=== PATIENT | male | born 1955 | race Caucasian/White ===

== ENCOUNTER → 2016-11-25 | Outpatient (CLI) | payer BC ==
[~2016-11-25] MED LIST: ALBUAER2 INH; ASPEC81 PO; BRVIN INH; CITA40TA4 PO; GUAI1TAB55 PO; IPRASOL4 INH; LISI10TA PO; LVQ750 PO; OXGN; PRD50 PO; SYMIN INH; THEO400T PO; TIOTCAP INH
--- NOTE | 2016-11-25 13:50 | DIAGNOSTIC IMAGING REPORT ---
TWO VIEW CHEST CLINICAL HISTORY: Dyspnea. COPD. FINDINGS: PA and lateral chest radiographs are compared to study dated 07/21/2016 and correlated with chest CT dated 09/04/2016. The PA view is degraded by patient rotation. The heart is enlarged and there is atherosclerotic calcification of the thoracic aorta. The pulmonary vasculature is noncongested. Severe emphysema and chronic interstitial thickening are again seen. Patchy airspace consolidation in the right middle lobe has a most completely resolved. Again seen is a 12 mm right upper lobe irregular pulmonary nodule. There is no pleural effusion or pneumothorax. The skeletal structures are osteopenic. The bony thorax appears intact. Fusion hardware seen in the lower cervical spine. Degenerative changes seen throughout the thoracic spine. IMPRESSION: 1. Dense airspace consolidation in the right middle lobe has almost completely resolved from 07/21/2016. Minimal residual opacities/scarring remain. 2. Unchanged appearance of a pathologically indeterminant 12 mm irregular nodule in the right upper lobe as compared to recent prior studies. Neoplasm is not excluded. 3. Cardiomegaly and severe emphysema. Electronically signed by: Julius Wynne M.D. 11/25/2016 1:48 PM Dictated Date/Time: 11/25/2016 1:36 PM
== END | disposition home or self-care (01) ==
LOC: C.RAD 12:54
PROVIDERS: ATTEND Family Medicine
DX: R06.02 Shortness of breath (principal); J43.9 Emphysema, unspecified

== ENCOUNTER → 2016-12-29 | Outpatient (CLI) | payer BC ==
--- NOTE | 2016-12-29 12:04 | DIAGNOSTIC IMAGING REPORT ---
CHEST CT WITHOUT CONTRAST CT DOSE: 282.78 mGycm HISTORY: Lung nodule R91.1 Lung nodule TECHNIQUE: Multiaxial CT images of the chest were performed without contrast. COMPARISON: 08/27/2016 FINDINGS: Improved infiltrative change right base with minimal residual. Nodular density right upper lung moderately diminished in size and/or volume now the current maximum dimension of 1.0 x 0.5 cm. Emphysematous change is stable. No new or interval findings. No significant additional pulmonary nodularity. IMPRESSION: Some improved exam with a nodular density of the right upper lung mildly diminished in maximum dimension. 2. Improved infiltrative change right base with minimal residual parenchymal scarring. 3. Baseline emphysematous change. Electronically signed by: Jaime Felix M.D. 12/29/2016 12:02 PM Dictated Date/Time: 12/29/2016 11:58 AM
== END | disposition home or self-care (01) ==
LOC: C.CTS 11:33
PROVIDERS: ATTEND Internal Medicine Pulmonary Disease
DX: R91.1 Solitary pulmonary nodule (principal)

== ENCOUNTER → 2017-09-03 | Outpatient (CLI) | payer BC ==
--- NOTE | 2017-09-03 14:44 | DIAGNOSTIC IMAGING REPORT ---
CHEST 2 VIEWS ROUTINE CLINICAL HISTORY: Exacerbation of COPD. Left-sided rib pain. COMPARISON STUDY: 11/25/2016 FINDINGS: There is radiographic evidence of severe emphysema. The heart is normal in size. There is no focal pulmonary consolidation. There is no failure. There are no pleural effusions. Postsurgical changes are present within the cervical spine.[ No pneumothorax is visualized. No left-sided rib fractures are delineated. IMPRESSION: Severe emphysema. No acute findings. Electronically signed by: Mihcael Villasenor M.D. 09/03/2017 2:43 PM Dictated Date/Time: 09/03/2017 2:42 PM
== END | disposition home or self-care (01) ==
LOC: C.RAD 13:58
PROVIDERS: ATTEND Nurse Practitioner Family
DX: J44.1 Chronic obstructive pulmonary disease with (acute) exacerbation (principal); R07.81 Pleurodynia

== ENCOUNTER → 2018-01-05 | Outpatient (CLI) | payer BC ==
--- NOTE | 2018-01-05 11:24 | DIAGNOSTIC IMAGING REPORT ---
(CHEST) THORAX WITHOUT CT DOSE: 398.78 mGycm CLINICAL HISTORY: 62 years-old Male with LUNG NODULE. Follow-up study in a patient with pulmonary nodule TECHNIQUE: Multiaxial CT images of the chest were performed without contrast. A dose lowering technique was utilized adhering to the principles of ALARA. COMPARISON: Chest CT 12/29/2016, 09/04/2016 and 04/11/2015 FINDINGS: Homogeneous thyroid. No pathologic adenopathy of the chest identified. Heart is normal in size without pericardial effusion. Coronary arterial disease. Moderate aortic atherosclerosis without aneurysm. No pneumothorax, pleural effusion or overt pulmonary edema. No lobar airspace consolidations are identified. Severe bullous emphysematous disease with an upper lung zone prominent distribution is again seen. Areas of chronic reticular scarring are again noted bilaterally. 8 x 8 mm nodule is mildly lobulated and spiculated margins is again noted within the right upper lobe on image 123 series 4. Adjacent linear density measuring 1.8 cm in length on image 124 suggests area of adjacent scarring. This nodule appears to be stable in size from comparison study 12/29/2016. Pleural-based 6 mm nodule of the superior segment left lower lobe image 164 series 4 appears unchanged. No new or enlarging pulmonary nodules are identified. Linear subsegmental opacities of the right middle lobe are unchanged suggesting areas of scarring. The central airways are patent. Upper abdominal structures are unremarkable. Soft tissues are within normal limits. Bones appear intact. No suspicious lytic or blastic bony lesions. Schmorl's node seen involving the superior endplate of what appears to be L2, unchanged. IMPRESSION: 1. Unchanged 8 x 8 mm pulmonary nodule with mildly lobulated and spiculated margins is again seen within the right upper lobe which is unchanged in size and appearance from most recent comparison study 12/29/2016. 2. Severe bullous emphysema. 3. No adenopathy or lobar airspace consolidation. Electronically signed by: Mikel Mcpherson M.D. 01/05/2018 11:22 AM Dictated Date/Time: 01/05/2018 11:11 AM
== END | disposition home or self-care (01) ==
LOC: C.CTS 10:54
PROVIDERS: ATTEND Internal Medicine Pulmonary Disease
DX: R91.1 Solitary pulmonary nodule (principal); J43.9 Emphysema, unspecified

== ENCOUNTER 2018-03-09 19:26 | Inpatient (IN) | payer BC, OTHER ==
[~2018-03-09] VITALS: Ht 167.6 cm; Wt 68.5 kg
[~2018-03-09 19:26] MED LIST changes: -ASPEC81 PO; +ASPI-320 PO
[2018-03-09] MEDS ORDERED: OXGN (19:33)
[2018-03-09] MEDS ORDERED: METHYLPREDNISOLONE 125 MG VIAL IV STA (19:37)
[2018-03-09] MEDS ORDERED: ALBUT/IPRATROP 3MG/0.5MG NEB 3 ML VIAL INH ONE (19:45)
[2018-03-09 19:55] LABS: BASO % 0.4 %; BASO ABS # 0.04 K/uL (0-0.2); EOS % 4.7 %; EOS ABS # 0.43 K/uL (0-0.5); HEMATOCRIT 41.2 % (42-52); HEMOGLOBIN 13.4 g/dL (14.0-18.0); IG# 0.06 K/uL (0.00-0.02); LYMPH % 14.7 %; LYMPH ABS # 1.34 K/uL (1.2-3.4); MEAN CELL VOLUME 89.4 fL (80-100); MEAN CORPUSCULAR HEMOGLOBIN 29.1 pg (25-34); MEAN CORPUSCULAR HGB CONC 32.5 g/dl (32-36); MEAN PLATELET VOLUME 9.5 fL (7.4-10.4); MONO ABS # 1.27 K/uL (0.11-0.59); NEUT % 65.5 %; NEUT ABS # 5.96 K/uL (1.4-6.5); PLATELET COUNT 314 K/uL (130-400); RED CELL DISTRIBUTION WIDTH CV 14.5 % (11.5-14.5); RED CELL DISTRIBUTION WIDTH SD 47.1 fL (36.4-46.3)
--- NOTE | 2018-03-09 19:56 | EMERGENCY ROOM VISIT NOTE ---
History Report prepared by Evans: Chris Fischer Under the Supervision of: Dr. Red Brennan M.D. First contact with patient: 19:28 Chief Complaint: CHEST PAIN Stated Complaint: CHEST PAIN History of Present Illness The patient is a 62 year old male who presents to the Emergency Room with complaints of constant chest pain starting around 0900 this morning. The patient states that six days ago he got a sudden sharp chest pain and left shoulder pain six days ago, and this resolved, though he has been having on and off chest pain since then and constant shoulder pain. The patient states that the pain is currently a dull pain, and it was relieved with nitro, and it is worse with exertion. He notes that the pain came on this morning after walking out of the bathroom, and he notes that the pain was still there while he was resting. The patient reports that he has never had pain like this before. He has a history of COPD, and he is usually on 3L of oxygen, and he takes a baby aspirin every morning. The patient notes that he has increased shortness of breath for the last couple of days, and this morning he saw his PCP for the pain. He notes that he was recently on antibiotics for a chest cold, and he just finished them. The patient denies any history of VA, and he states that he has had a stress test in the past. He is a previous smoker. Source of History: patient Onset: 0900 this morning Position: chest Quality: dull Timing: constant Modifying Factors (Worsening): exertion Modifying Factors (Relieving): other (nitro ) Associated Symptoms: + SOB Note: Associated symptoms: Shoulder pain Review of Systems See HPI for pertinent positives and negatives. A total of ten systems were reviewed and were otherwise negative. Past Medical & Surgical Medical Problems: (1) Chest discomfort (2) Chronic Respiratory Failure (3) COPD (chronic obstructive pulmonary disease) (4) COPD with acute exacerbation (5) COPD with acute lower respiratory infection (6) Hypertension Nos (7) Septic shock Family History Patient reports no known family medical history. Social History Smoking Status: Current Every Day Smoker Alcohol Use: none Drug Use: none Marital Status: Housing Status: lives with family Occupation Status: employed Current/Historical Medications Scheduled Aspirin (Aspirin Ec), 81 MG PO DAILY Budesonide/Formoterol Fumarate (Symbicort 160-4.5 Mcg/Act), 2 PUFFS INH BID Citalopram Hydrobromide (Celexa), 20 MG PO DAILY Guaifenesin Ext Rel (Mucinex Ext Rel), 1,200 MG PO DAILY Home O2 Therapy (Oxygen), 3 LITERS NA CONTINOUS Lisinopril (Prinivil), 10 MG PO DAILY Theophylline (Theophylline ER), 400 MG PO Q12 Scheduled PRN Albuterol Hfa (Ventolin Hfa), 2 PUFFS INH Q4 PRN for SOB/Wheezing Ipratropium [place] (Nasal) (Ipratropium [place]), 2 SPRAYS YVAN TID PRN for SOB/ Wheezing Ipratropium-Albuterol (Duoneb), 1 TREATMENT INH Q4H PRN for Shortness of Breath Allergies Coded Allergies: Pirbuterol (Verified Allergy, Severe, "CHEST TIGHTENS", 06/03/16) Physical Exam Vital Signs Date Time Temp Pulse Resp B/P (MAP) Pulse Ox O2 Delivery O2 Flow Rate FiO2 03/09/18 21:01 88 23 119/64 97 Nebulizer 03/09/18 20:31 86 24 125/74 98 Nebulizer 03/09/18 20:15 84 03/09/18 20:09 84 20 95 Nasal Cannula 3.0 03/09/18 19:51 94 Nasal Cannula 3.0 03/09/18 19:34 37.0 92 16 155/76 95 Nasal Cannula 3.0 03/09/18 19:34 Room Air 03/09/18 19:34 95 Nasal Cannula 3.0 Physical Exam GENERAL: Awake, alert, fatigued-appearing, in no distress HENT: Normocephalic, atraumatic. Dry mucous membranes otherwise oropharynx unremarkable. EYES: Normal conjunctiva. Sclera non-icteric. NECK: Supple. No nuchal rigidity. FROM. No JVD. RESPIRATORY: Scattered intermittent wheezes CARDIAC: Regular rate, normal rhythm. Extremities warm and well perfused. Pulses equal. ABDOMEN: Soft, non-distended. No tenderness to palpation. No rebound or guarding. No masses. RECTAL: Deferred. MUSCULOSKELETAL: Chest examination reveals no tenderness. The back is symmetrical on inspection without obvious abnormality. There is no CVA tenderness to palpation. No joint edema. LOWER EXTREMITIES: Calves are equal size bilaterally and non-tender. No edema. No discoloration. NEURO: Normal sensorium. No sensory or motor deficits noted. SKIN: No rash or jaundice noted. Medical Decision & Procedures ER Provider Diagnostic Interpretation: Radiology results as stated below per my review and radiologist interpretation: SINGLE VIEW CHEST CLINICAL HISTORY: Atypical chest pain. FINDINGS: 2 AP, portable, upright chest radiographs are compared to study dated 09/03/2017 and correlated with chest CT dated 01/05/2018. The examination is degraded by portable technique and patient rotation. The heart is enlarged and there is atherosclerotic calcification of the thoracic aorta. Advanced emphysema and chronic interstitial thickening are similar to previous. Foci of cortical scarring are present bilaterally. A 12 mm thick age-related nodule is again seen in the right upper lobe. No pneumothorax is seen. The skeletal structures are osteopenic. The bony thorax is grossly intact. Fusion hardware is noted in the lower cervical spine. IMPRESSION: 1. Cardiomegaly and severe emphysema. 2. No airspace consolidation or pleural effusion is identified. 3. A 12 mm spiculated nodule is again seen in the right upper lobe. This was better characterized on the 01/05/2018 CT examination and neoplasm is not excluded. Electronically signed by: Julius Wynne M.D. 03/09/2018 8:22 PM Dictated Date/Time: 03/09/2018 8:18 PM Laboratory Results 03/09/18 19:25 Red Blood Count 4.61, Mean Corpuscular Volume 89.4, Mean Corpuscular Hemoglobin 29.1, Mean Corpuscular Hemoglobin Concent 32.5, Mean Platelet Volume 9.5, Neutrophils (%) (Auto) 65.5, Lymphocytes (%) (Auto) 14.7, Monocytes (%) (Auto) 14.0, Eosinophils (%) (Auto) 4.7, Basophils (%) (Auto) 0.4, Neutrophils # (Auto ) 5.96, Lymphocytes # (Auto) 1.34, Monocytes # (Auto) 1.27, Eosinophils # (Auto ) 0.43, Basophils # (Auto) 0.04 03/09/18 19:25 Test 03/09/18 19:25 03/09/18 20:28 White Blood Count 9.10 K/uL (4.8-10.8) Red Blood Count 4.61 M/uL (4.7-6.1) Hemoglobin 13.4 g/dL (14.0-18.0) Hematocrit 41.2 % (42-52) Mean Corpuscular Volume 89.4 fL (80-100) Mean Corpuscular Hemoglobin 29.1 pg (25-34) Mean Corpuscular Hemoglobin Concent 32.5 g/dl (32-36) Platelet Count 314 K/uL (130-400) Mean Platelet Volume 9.5 fL (7.4-10.4) Neutrophils (%) (Auto) 65.5 % Lymphocytes (%) (Auto) 14.7 % Monocytes (%) (Auto) 14.0 % Eosinophils (%) (Auto) 4.7 % Basophils (%) (Auto) 0.4 % Neutrophils # (Auto) 5.96 K/uL (1.4-6.5) Lymphocytes # (Auto) 1.34 K/uL (1.2-3.4) Monocytes # (Auto) 1.27 K/uL (0.11-0.59) Eosinophils # (Auto) 0.43 K/uL (0-0.5) Basophils # (Auto) 0.04 K/uL (0-0.2) RDW Standard Deviation 47.1 fL (36.4-46.3) RDW Coefficient of Variation 14.5 % (11.5-14.5) Immature Granulocyte % (Auto) 0.7 % Immature Granulocyte # (Auto) 0.06 K/uL (0.00-0.02) Anion Gap 4.0 mmol/L (3-11) Est Creatinine Clear Calc Drug Dose 57.5 ml/min Estimated GFR () 75.9 Estimated GFR (Non- 65.5 BUN/Creatinine Ratio 19.6 (10-20) Calcium Level 8.9 mg/dl (8.5-10.1) Magnesium Level 2.2 mg/dl (1.8-2.4) Total Bilirubin 0.3 mg/dl (0.2-1) Direct Bilirubin < 0.1 mg/dl (0-0.2) Aspartate Amino Transf (AST/SGOT) 15 U/L (15-37) Alanine Aminotransferase (ALT/SGPT) 18 U/L (12-78) Alkaline Phosphatase 109 U/L (45-117) Troponin I < 0.015 ng/ml (0-0.045) Pro-B-Type Natriuretic Peptide 56 pg/ml (0-900) Total Protein 6.8 gm/dl (6.4-8.2) Albumin 3.2 gm/dl (3.4-5.0) Lipase 132 U/L (73-393) Venous Blood pH 7.40 (7.36-7.41) Venous Blood Partial Pressure CO2 52 mmHg (38.0-50.0) Venous Blood Partial Pressure O2 29 mmHg Venous Blood HCO3 31 mmol/L Venous Blood Oxygen Saturation < 60.0 % Venous Blood Base Excess 5.3 mEq/L Laboratory results reviewed by me Medications Administered Medications (Trade) Dose Ordered Sig/Belinda Route Start Time Stop Time Status Last Admin Dose Admin Methylprednisolone Sodium Succinate (Solu-Medrol IV) 125 mg NOW STAT IV 03/09/18 19:37 03/09/18 19:45 DC 03/09/18 20:05 125 MG Albuterol/ Ipratropium (Duoneb) 12 ml ONE ONCE INH 03/09/18 19:45 03/09/18 19:46 DC 03/09/18 20:07 12 ML ECG Per My Interpretation Indication: chest pain Rate (beats per minute): 95 Rhythm: normal sinus Findings: no acute ischemic change, no ectopy, other (normal axis) ED Course 1927: The patient was evaluated in room C10. A complete history and physical exam was performed. 2024: Upon reexamination, the patient was doing well. I discussed the test results and treatment plan with him. The patient will be evaluated for further management. 2058: I discussed the patient with Dr. Galeano - [facility] [place] - he will evaluate the patient for further treatment. Medical Decision I reviewed the patient's past medical history, medications, and the nursing notes as described above. Differential diagnosis: Etiologies such as cardiac ischemia, aortic dissection, pulmonary embolism, pneumonia, pneumothorax, musculoskeletal, infections, pericarditis, myocarditis , esophageal rupture, gastrointestinal, as well as others were entertained. The patient is a 62-year-old gentleman with a past medical history of COPD on 3 L home O2 who presents emergency department with worsening chest pain throughout today that resolved by nitroglycerin and aspirin by EMS prior to arrival in the setting of having worsening intermittent chest pain for the past week that is provoked by exertion per hpi. On arrival the patient is fatigued appearing but no acute distress, afebrile stable vital signs. The patient has scant intermittent wheezes. Patient was given steroids and DuoNeb's. Of note, EMS EKG with question ST elevations inferiorly however review of these findings demonstrate concave up morphology with question minimal elevation unlikely to be STEMI particularly given no reciprocal changes. EKG on arrival here does not demonstrate any ST elevations. Moreover, otherwise similar to patient's prior EKGs with similar morphology and flattening in aVL. Initial troponin negative in the setting of having greater than 6 hours of symptoms since this morning. While the patient symptoms do not appear consistent with ACS, pattern of symptoms could be consistent with unstable angina. Heart score 5, moderate risk, thus reasonable to admit the patient for further ACS rule out. Medication Reconcilliation Current Medication List: was personally reviewed by me Blood Pressure Screening Patient's blood pressure: Elevated blood pressure monitored by the hospitalist Consults Time Called: 2028 Consulting Physician: Dr. Waleska ANDRADE Hospitalist resident Returned Call: [phone] I discussed the patient with Dr. Waleska ANDRADE Hospitalist resident - he will evaluate the patient for further treatment. Impression Primary Impression: Substernal chest pain Additional Impression: COPD with acute exacerbation Scribe Attestation The scribe's documentation has been prepared under my direction and personally reviewed by me in its entirety. I confirm that the note above accurately reflects all work, treatment, procedures, and medical decision making performed by me. Departure Information Dispostion Being Evaluated By Hospitalist Referrals Shazia Marquez (PCP) Patient Instructions My [facility] Problem Qualifiers
[2018-03-09 20:04] LABS: ALBUMIN 3.2 gm/dl (3.4-5.0); ALT/SGPT 18 U/L (12-78); AST/SGOT 15 U/L (15-37); BLOOD UREA NITROGEN 23 mg/dl (7-18); CALCIUM 8.9 mg/dl (8.5-10.1); CARBON DIOXIDE 30 mmol/L (21-32); CREATININE 1.17 mg/dl (0.60-1.40); GLUCOSE 82 mg/dl (70-99); LIPASE 132 U/L (73-393); POTASSIUM 4.4 mmol/L (3.5-5.1); SODIUM 138 mmol/L (136-145)
[2018-03-09] MEDS ORDERED: VNTHFA/IN INH (20:07)
[2018-03-09] MEDS ORDERED: CITA20TA9 PO (20:07)
[2018-03-09] MEDS ORDERED: ASPI81TA28 PO (20:07)
[2018-03-09] MEDS ORDERED: IPRA0.03 NAE (20:07)
[2018-03-09 20:09] VITALS: PULSE 84; O2SAT 95
[2018-03-09 20:10] LABS: ALKALINE PHOSPHATASE 109 U/L (45-117); TOTAL PROTEIN 6.8 gm/dl (6.4-8.2)
--- NOTE | 2018-03-09 20:23 | DIAGNOSTIC IMAGING REPORT ---
SINGLE VIEW CHEST CLINICAL HISTORY: Atypical chest pain. FINDINGS: 2 AP, portable, upright chest radiographs are compared to study dated 09/03/2017 and correlated with chest CT dated 01/05/2018. The examination is degraded by portable technique and patient rotation. The heart is enlarged and there is atherosclerotic calcification of the thoracic aorta. Advanced emphysema and chronic interstitial thickening are similar to previous. Foci of cortical scarring are present bilaterally. A 12 mm thick age-related nodule is again seen in the right upper lobe. No pneumothorax is seen. The skeletal structures are osteopenic. The bony thorax is grossly intact. Fusion hardware is noted in the lower cervical spine. IMPRESSION: 1. Cardiomegaly and severe emphysema. 2. No airspace consolidation or pleural effusion is identified. 3. A 12 mm spiculated nodule is again seen in the right upper lobe. This was better characterized on the 01/05/2018 CT examination and neoplasm is not excluded. Electronically signed by: Julius Wynne M.D. 03/09/2018 8:22 PM Dictated Date/Time: 03/09/2018 8:18 PM
--- NOTE | 2018-03-09 21:24 | History and Physical ---
History & Physical Date & Time of Service: March 09, 2018 at 21:24 Chief Complaint: Chest Pain Primary Care Physician: Shazia Marquez History of Present Illness Source: patient, hospital records 62 yo M former smoker with pmhx of HTN, Severe COPD on 3L home O2, requiring multiple hospitalizations for exacerbation, presenting with 1 wk history of worsening SOB. He also reports episode of sharp chest pain while he was hanging a picture 1 week ago. Chest pain was sharp left sided, lasted approximately an hour with radiation to the neck. Chest pain never fully resolved and reports residual chest pain since. He went to PCP today and was given ASA, nitro and told to go to ED fro further evaluation for ACS. He did take Asprin. NO previous similar Chest pain. No fevers, chills N/V, diaphoresis. No history of CAD. No palpitation, No PND, No orthopnea. Past Medical/Surgical History Medical Problems: (1) Acute respiratory failure (2) Basal pneumonia of both lungs (3) Chronic obstructive pulmonary disease (4) Chronic Respiratory Failure (5) COPD (chronic obstructive pulmonary disease) (6) COPD with acute exacerbation (7) COPD with acute lower respiratory infection (8) Hypertension Nos (9) Hypoxia (10) Pneumonia (11) Septic shock PastMedHx: HTN Severe COPD anxiety SurgHx: Cspine Sx (2009) Family History Patient reports no known family medical history. DM COPD Social History Smoking Status: Former Smoker (quit 3 yrs ago) Alcohol Use: none Drug Use: none Marital Status: Housing status: lives with family Occupational Status: employed, retired Immunizations History of Influenza Vaccine: No History of Tetanus Vaccine?: Unknown History of Pneumococcal: No History of Hepatitis B Vaccine: No Allergies Coded Allergies: Pirbuterol (Verified Allergy, Severe, "CHEST TIGHTENS", 06/03/16) Home Medications Scheduled Aspirin (Aspirin Ec), 81 MG PO DAILY Azithromycin (Azithromycin), 250 MG PO QAM Budesonide/Formoterol Fumarate (Symbicort 160-4.5 Mcg/Act), 2 PUFFS INH BID Citalopram Hydrobromide (Celexa), 20 MG PO DAILY Guaifenesin Ext Rel (Mucinex Ext Rel), 1,200 MG PO DAILY Home O2 Therapy (Oxygen), 3 LITERS NA CONTINOUS Lisinopril (Prinivil), 10 MG PO DAILY Prednisone Tab (Prednisone), 10 MG PO DAILY Theophylline (Theophylline ER), 400 MG PO Q12 Scheduled PRN Albuterol Hfa (Ventolin Hfa), 2 PUFFS INH Q4 PRN for SOB/Wheezing Ipratropium [place] (Nasal) (Ipratropium [place]), 2 SPRAYS YVAN TID PRN for SOB/ Wheezing Ipratropium-Albuterol (Duoneb), 1 TREATMENT INH Q4H PRN for Shortness of Breath Review of Systems Constitutional: No fever, No chills, No weakness Respiratory: + cough, + shortness of breath Cardiovascular: + chest pain, No edema, No palpitations Abdomen: No pain, No nausea, No vomiting, No diarrhea Musculoskeletal: No swelling, No calf pain Genitourinary - Male: No hematuria, No dysuria, No urinary frequency, No urinary urgency Integumentary: No itch Physical Exam Vital Signs Date Time Temp Pulse Resp B/P (MAP) Pulse Ox O2 Delivery O2 Flow Rate FiO2 03/09/18 20:31 86 24 125/74 98 Nebulizer 03/09/18 20:15 84 03/09/18 20:09 84 20 95 Nasal Cannula 3.0 03/09/18 19:51 94 Nasal Cannula 3.0 03/09/18 19:34 37.0 92 16 155/76 95 Nasal Cannula 3.0 03/09/18 19:34 Room Air 03/09/18 19:34 95 Nasal Cannula 3.0 GENERAL: alert, well appearing, well nourished, no distress, non-toxic EYE EXAM: normal conjunctiva, PERRL and EOM's grossly intact OROPHARYNX: no exudate, no erythema, lips, buccal mucosa, and tongue normal and mucous membranes are moist NECK: supple, no nuchal rigidity, no adenopathy, non-tender LUNGS: mild scattered wheeze. Normal chest wall mechanics HEART: no murmurs, S1 normal and S2 normal ABDOMEN: abdomen soft, non-tender, normo-active bowel sounds, no masses, no rebound or guarding. BACK: Back is symmetrical on inspection and there is no deformity SKIN: no rashes and no bruising UPPER EXTREMITIES: upper extremities are grossly normal. LOWER EXTREMITIES: No pitting edema. NEURO EXAM: Normal sensorium, cranial nerves II-XII grossly intact, normal speech, no gross weakness of arms, no gross weakness of legs. Diagnostics Laboratory Results Results Past 24 Hours Test 03/09/18 19:25 03/09/18 20:28 Range/Units White Blood Count 9.10 4.8-10.8 K/uL Red Blood Count 4.61 4.7-6.1 M/uL Hemoglobin 13.4 14.0-18.0 g/dL Hematocrit 41.2 42-52 % Mean Corpuscular Volume 89.4 80-100 fL Mean Corpuscular Hemoglobin 29.1 25-34 pg Mean Corpuscular Hemoglobin Concent 32.5 32-36 g/dl Platelet Count 314 130-400 K/uL Mean Platelet Volume 9.5 7.4-10.4 fL Neutrophils (%) (Auto) 65.5 % Lymphocytes (%) (Auto) 14.7 % Monocytes (%) (Auto) 14.0 % Eosinophils (%) (Auto) 4.7 % Basophils (%) (Auto) 0.4 % Neutrophils # (Auto) 5.96 1.4-6.5 K/uL Lymphocytes # (Auto) 1.34 1.2-3.4 K/uL Monocytes # (Auto) 1.27 0.11-0.59 K/uL Eosinophils # (Auto) 0.43 0-0.5 K/uL Basophils # (Auto) 0.04 0-0.2 K/uL RDW Standard Deviation 47.1 36.4-46.3 fL RDW Coefficient of Variation 14.5 11.5-14.5 % Immature Granulocyte % (Auto) 0.7 % Immature Granulocyte # (Auto) 0.06 0.00-0.02 K/uL Sodium Level 138 136-145 mmol/L Potassium Level 4.4 3.5-5.1 mmol/L Chloride Level 105 98-107 mmol/L Carbon Dioxide Level 30 21-32 mmol/L Anion Gap 4.0 3-11 mmol/L Blood Urea Nitrogen 23 7-18 mg/dl Creatinine 1.17 0.60-1.40 mg/dl Est Creatinine Clear Calc Drug Dose 57.5 ml/min Estimated GFR () 75.9 Estimated GFR (Non- 65.5 BUN/Creatinine Ratio 19.6 10-20 Random Glucose 82 70-99 mg/dl Calcium Level 8.9 8.5-10.1 mg/dl Magnesium Level 2.2 1.8-2.4 mg/dl Total Bilirubin 0.3 0.2-1 mg/dl Direct Bilirubin < 0.1 0-0.2 mg/dl Aspartate Amino Transf (AST/SGOT) 15 15-37 U/L Alanine Aminotransferase (ALT/SGPT) 18 12-78 U/L Alkaline Phosphatase 109 45-117 U/L Troponin I < 0.015 0-0.045 ng/ml Pro-B-Type Natriuretic Peptide 56 0-900 pg/ml Total Protein 6.8 6.4-8.2 gm/dl Albumin 3.2 3.4-5.0 gm/dl Lipase 132 73-393 U/L Venous Blood pH 7.40 7.36-7.41 Venous Blood Partial Pressure CO2 52 38.0-50.0 mmHg Venous Blood Partial Pressure O2 29 mmHg Venous Blood HCO3 31 mmol/L Venous Blood Oxygen Saturation < 60.0 % Venous Blood Base Excess 5.3 mEq/L Diagnostic Radiology SINGLE VIEW CHEST CLINICAL HISTORY: Atypical chest pain. FINDINGS: 2 AP, portable, upright chest radiographs are compared to study dated 09/03/2017 and correlated with chest CT dated 01/05/2018. The examination is degraded by portable technique and patient rotation. The heart is enlarged and there is atherosclerotic calcification of the thoracic aorta. Advanced emphysema and chronic interstitial thickening are similar to previous. Foci of cortical scarring are present bilaterally. A 12 mm thick age-related nodule is again seen in the right upper lobe. No pneumothorax is seen. The skeletal structures are osteopenic. The bony thorax is grossly intact. Fusion hardware is noted in the lower cervical spine. IMPRESSION: 1. Cardiomegaly and severe emphysema. 2. No airspace consolidation or pleural effusion is identified. 3. A 12 mm spiculated nodule is again seen in the right upper lobe. This was better characterized on the 01/05/2018 CT examination and neoplasm is not excluded. Normal EKG, No change from prior EKG Impression Assessment and Plan 62 yo M former smoker with pmhx of HTN, Severe COPD on 3L home O2 requiring multiple hospitalizations for exacerbation, presenting with 1 wk history of worsening SOB, Chest pain with normal EKG, Troponin, admitted fro COPD exacerbation Admit to to Tele COPD Exacerbation - SOB, wheezing Chest discomfort, maintaining saturation on 3L O2 - Duonebs, Continue oxygen at 3L , titrate up if needed - IV Solumedrol 40 q8H -Guaifenesin -Levaquin 750 daily -c/w home theophylline , Symbicort Chest pain - likely pulmonary in etiology related to COPD, however ACS considered given history - EKG , neg troponin not consistent with acute ischemic change - continue to monitor troponin. HTN - BP controlled - c/w Lisinopril Anxiety - c/w Citalopram DVT PPX: Lovenox Code status: Full Attending addendum: I have physically seen this patient, have supervised the medical residents activities, and agree with the H&P unless as otherwise noted. Assessment and Plan: COPD exacerbation/right upper lobe nodule-- Levofloxacin 500 mg IV every 24 hours Duonebs every 4 hours while awake and every 2 hours when necessary. Solu-Medrol 40 mg IV every 8 hours Guaifenesin extended release 600 mg by mouth twice a day. Continue theophylline, check level. Nasal cannula oxygen titrate to keep pulse ox greater than or equal to 92% Sputum Gram stain and culture Follow up with lung nodule program. Hypertension-- Continue lisinopril with hold parameters. Advanced Directives Existing Advance Directive: No Existing Living Will: No Existing Power of Chief Petroleum Engineer: No Resuscitation Status VTE Prophylaxis Will order VTE Prophylaxis: Yes Social Service Consult None Apply Resident Tracking Resident Involvement: Resident Care Provided Care Provided: Adult Hospital Medicine
[2018-03-09] MEDS ORDERED: ONDANSETRON INJ 2 MG/ML 2 ML VIAL IV PRN (21:45)
[2018-03-09] MEDS ORDERED: ALUMINUM/MAGNESIUM/SIMETH (MAALOX MAX) 30 ML UDC PO PRN (21:45)
[2018-03-09] MEDS ORDERED: PREMIXED IN D5W 150 ML IV SCH (21:45)
[2018-03-09] MEDS ORDERED: MAGNESIUM HYDROXIDE SUSP 30 ML UDC PO PRN (21:45)
[2018-03-09] MEDS ORDERED: POLYETHYLENE (MIRALAX) 17 GM PACK PO PRN (21:45)
[2018-03-09] MEDS ORDERED: NITROGLYCERIN 0.4 MG SL PER TAB CHARGE SL PRN (21:45)
[2018-03-09] MEDS ORDERED: ACETAMINOPHEN 325 MG TAB PO PRN (21:45)
[2018-03-09 22:56] VITALS: BP 129/74; PULSE 98; TEMP 36.9; O2SAT 93; Ht 167.6 cm; Wt 68.5 kg
[2018-03-10] VITALS (8 sets, daily range): BP systolic 124–164; BP diastolic 74–82; PULSE 75–94; TEMP 36.4–36.6; O2SAT 90–98
[2018-03-10] MEDS ORDERED: LEVOFLOXACIN 750MG / D5W IV SCH
[2018-03-10] MEDS: GUAIFENESIN 200 MG TAB PO SCH ×5 (00:01→16:09)
[2018-03-10] MEDS: METHYLPREDNISOLONE IV 40 MG in SYRINGE 0 ML IV SCH ×2 (04:15→11:30)
[2018-03-10 06:36] LABS: BASO % 0.2 %; BASO ABS # 0.01 K/uL (0-0.2); EOS % 0.2 %; EOS ABS # 0.01 K/uL (0-0.5); HEMATOCRIT 38.5 % (42-52); HEMOGLOBIN 12.6 g/dL (14.0-18.0); IG# 0.02 K/uL (0.00-0.02); LYMPH % 12.3 %; LYMPH ABS # 0.67 K/uL (1.2-3.4); MEAN CELL VOLUME 88.9 fL (80-100); MEAN CORPUSCULAR HEMOGLOBIN 29.1 pg (25-34); MEAN CORPUSCULAR HGB CONC 32.7 g/dl (32-36); MEAN PLATELET VOLUME 9.6 fL (7.4-10.4); MONO % 0.5 %; MONO ABS # 0.03 K/uL (0.11-0.59); NEUT % 86.4 %; NEUT ABS # 4.72 K/uL (1.4-6.5); PLATELET COUNT 298 K/uL (130-400); RED CELL DISTRIBUTION WIDTH CV 14.1 % (11.5-14.5); RED CELL DISTRIBUTION WIDTH SD 46.5 fL (36.4-46.3); WHITE BLOOD COUNT 5.46 K/uL (4.8-10.8)
[2018-03-10] MEDS: ALBUT/IPRATROP 3MG/0.5MG NEB 3 ML VIAL INH SCH ×3 (07:01→15:20)
[2018-03-10 07:02] LABS: CALCIUM 8.5 mg/dl (8.5-10.1); CREATININE 1.1 mg/dl (0.60-1.40); POTASSIUM 4.9 mmol/L (3.5-5.1)
--- NOTE | 2018-03-10 08:05 | Family Medicine Progress Note ---
Progress Note Date of Service March 10, 2018. Resident Tracking Resident Involvement: Resident Care Provided Care Provided: Adult Hospital Medicine
[2018-03-10] MEDS ORDERED: ENOXAPARIN 40 MG/0.4 ML SYR SC SCH (09:00)
[2018-03-10] MEDS ORDERED: BUDESONIDE/FORMOTEROL FUMARATE 160/4.5 60 PUFFS/INHALER INH SCH (09:00)
[2018-03-10] MEDS ORDERED: THEOPHYLLINE 400 MG EXTENDED REL TAB PO SCH (09:00)
[2018-03-10] MEDS ORDERED: CITALOPRAM 20 MG TAB PO SCH (09:00)
[2018-03-10] MEDS ORDERED: ASPIRIN 81 MG ECTAB PO SCH (09:00)
[2018-03-10] MEDS ORDERED: LISINOPRIL 10 MG TAB PO SCH (09:00)
[2018-03-10] MEDS ORDERED: AZIT-57 PO (14:58)
[2018-03-10] MEDS ORDERED: PRED10TA PO (15:03)
--- NOTE | 2018-03-10 15:15 | Discharge Instructions ---
Discharge Instructions Date of Service March 10, 2018. Admission Reason for Admission: Chest Discomfort, Copd With Acute Exacerbation Discharge Discharge Diagnosis / Problem: COPD exacerbation Discharge Goals Goal(s): Decrease discomfort, Improve disease control, Diagnostic testing, Therapeutic intervention Activity Recommendations Activity Limitations: resume your previous activity . Instructions / Follow-Up Instructions / Follow-Up You were admitted to hospital with exacerbation of your COPD. You also had some chest discomfort. EKG and troponin levels were all normal, indicating NO evidence of a heart attack. With administration of steroids, your symptoms improved. On discharge, continue all your medications. You have also been prescribed 5 days of antibiotics (azithromycin) and a very slow taper of steroids in hopes of avoiding rebound exacerbation. Take prednisone 60mg (6 tablets) x 3days, 50mg (5 tablets) x 3 days, 40mg (4 tablets ) x 3 days, 30mg (3 tablets) x 3 days, 20mg (2 tablets) x 3 days, 10mg (1 tablet ) x 3 days, then stop. We recommend follow up with your PCP next week. Discussion of outpatient sleep study and/or echo referral is warranted to determine if you would benefit from CPAP/Bipap. Seek medical attention sooner if your symptoms worsen/recur. Current Hospital Diet Patient's current hospital diet: Regular Diet Discharge Diet Recommended Diet: Regular Diet Pending Studies Studies pending at discharge: no Medical Emergencies . Who to Call and When: Medical Emergencies: If at any time you feel your situation is an emergency, please call 911 immediately. . Non-Emergent Contact Non-Emergency issues call your: Primary Care Provider, Commissions Coordinator . . "Provider Documentation" section prepared by Loreto Santiago. . Resident Tracking Resident Involvement: Resident Care Provided Care Provided: Adult Hospital Medicine
--- NOTE | 2018-03-10 15:17 | Discharge Summary ---
Discharge Summary Date of Service March 10, 2018. Discharge Summary Admission Date: March 09, 2018 at 21:53 Discharge Date: March 10, 2018 Discharge Disposition: Home Principal Diagnosis: COPD exacerbation Immunizations: Have You Had Influenza Vaccine: No History of Tetanus Vaccine?: Unknown History of Pneumococcal: No History of Hepatitis B Vaccine: No Medication Reconciliation New Medications: Prednisone Tab (Prednisone) 10 Mg Tab 10 MG PO DAILY, #63 TAB 60mg x3days, 50mg x3days, 40mg x3days, 30mg x3days, 20mg x3days, 10mg x3days, then stop Azithromycin (Azithromycin) 250 Mg Tab 250 MG PO QAM, #5 TAB Continued Medications: Albuterol Hfa (Ventolin Hfa) 200 Puffs/55096 Mcg Aers 2 PUFFS INH Q4 PRN for SOB/Wheezing, #1 INHALER Aspirin (Aspirin Ec) 81 Mg Tab 81 MG PO DAILY Budesonide/Formoterol Fumarate (Symbicort 160-4.5 Mcg/Act) 60 Puffs/Inhaler Aero 2 PUFFS INH BID Citalopram Hydrobromide (Celexa) 20 Mg Tab 20 MG PO DAILY, TAB Guaifenesin Ext Rel (Mucinex Ext Rel) 600 Mg Tab 1200 MG PO DAILY, TAB Home O2 Therapy (Oxygen) Gas 3 LITERS NA CONTINOUS @ BEDTIME AND WITH EXERTION. Ipratropium [place] (Nasal) (Ipratropium [place]) 0.03 % Spr 2 SPRAYS YVAN TID PRN for SOB/Wheezing Ipratropium-Albuterol (Duoneb) 3 Ml Nebu 1 TREATMENT INH Q4H PRN for Shortness of Breath, INHA Lisinopril (Prinivil) 10 Mg Tab 10 MG PO DAILY, TAB Theophylline (Theophylline ER) 400 Mg Tabcr 400 MG PO Q12 Discharge Exam Patient comfortable, saturating well on baseline oxygen level. He denies fevers/ chills, headaches, CP, palpitations, abdominal pain, lower extremity swelling or rashes. He is tolerating diet without nausea or vomiting, and voiding and stooling appropriately. ROS is unremarkable except as noted above. Physical Exam: General Appearance: WD/WN, no apparent distress, + pertinent finding (NC in situ, 3L O2) Eyes: sclerae normal ENT: hearing grossly normal Neck: supple, no JVD Respiratory/Chest: normal breath sounds, no respiratory distress, no accessory muscle use Cardiovascular: regular rate, rhythm, no murmur Abdomen / GI: normal bowel sounds, non tender, soft Extremities: no calf tenderness, no pedal edema Neurologic/Psychiatric: alert, normal mood/affect, oriented x 3 Skin: normal color, warm/dry, no rash Hospital Course 62 yo M former smoker with pMHx of severe COPD on 3L O2 at baseline, HTN, presented with 1 week history of worsening SOB and chest pain, admitted fro COPD exacerbation COPD Exacerbation - Continuous O2 via NC 3L (baseline), maintain sats >88% - Continue home inhalers: albuterol, Symbicort, theophylline - Prescribed PO prednisone 60mg on discharge, with plans to taper by 10mg every 3 days to avoid refractory exacerbation - Azithromycin x 5 days for atypical coverage - Guaifenesin PRN cough - Follow up with PCP early next week. Given history of CPAP use in past, discussion re referral for outpatient sleep study (?ERNESTINA) and echo (?pulm HTN) warranted Chest pain - resolved. Likely pulmonary in etiology related to COPD. ACS unlikely as EKG shows no ischemic changes and serial troponin x 3 negative HTN - Stable. Continue lisinopril Anxiety - Continue Citalopram VTE ppx - Enoxaparin Code status: Full Resident Physician Supervision Note: I interviewed and examined the patient. Discussed with Dr. Santiago and agree with findings and plan as documented in the note. Any exceptions or clarifications are listed here: None Documented By: Sanket Bethea chest pain better breathing better feeling OK vitals noted nad breathing unlabored no pallor or icterus chest pain - due to COPD exacerbation - treat as above, but stable for discharge to home w outpt f/u stable for home Total Time Spent: Less than 30 minutes This includes examination of the patient, discharge planning, medication reconciliation, and communication with other providers. Discharge Instructions Please refer to the electronic Patient Visit Report (Discharge Instructions) for additional information. Additional Copies To Shazia Marquez Resident Tracking Resident Involvement: Resident Care Provided Care Provided: Adult Hospital Medicine
[2018-03-10] MEDS ORDERED: AZITHROMYCIN 250 MG TAB PO SCH (16:00)
== END 2018-03-10 17:00 | disposition home or self-care (01) | DRG 191 ==
LOC: EDBD 19:26 → C.EDC 19:28 → C.MED 21:53 → ENRESERV 22:14
PROVIDERS: ADMIT Hospitalist; ATTEND Family Medicine
DX: J44.1 Chronic obstructive pulmonary disease with (acute) exacerbation (principal); J96.10 Chronic respiratory failure, unspecified whether with hypoxia or hypercapnia; R91.1 Solitary pulmonary nodule; F41.9 Anxiety disorder, unspecified; I10 Essential (primary) hypertension; Z87.891 Personal history of nicotine dependence; Z88.8 Allergy status to other drugs, medicaments and biological substances; Z79.82 Long term (current) use of aspirin

== ENCOUNTER → 2018-03-22 | Outpatient (CLI) | payer BC ==
[~2018-03-22] MED LIST changes: -ALBUAER2 INH; -ASPI-320 PO; +ASPI81TA28 PO; +AZIT-57 PO; -BRVIN INH; +CITA20TA9 PO; -CITA40TA4 PO; +IPRA0.03 NAE; -LVQ750 PO; +PERFLUTREN LIPID MICROSPHERE (DEFINITY) IV ONE; -PRD50 PO; +PRED10TA PO; -TIOTCAP INH; +VNTHFA/IN INH
--- NOTE | 2018-03-22 21:21 | ECHOCARDIOGRAM REPORT ---
*NOTICE TO RECEIVING [employer]Y This information is strictly Confidential and protected under [place] law. [place] law prohibits you from making any further disclosure of this information unless further disclosure is expressly permitted by the written consent of the person to whom it pertains or is authorized by law. A general authorization for the release of medical or other information is not sufficient for this purpose. Hospital accepts no responsibility if the information is made available to any other person, INCLUDING THE PATIENT. Interpretation Summary * Name: MONTY COTTON Study Date: 03/22/2018 01:18 PM BP: 137/70 mmHg * Patient Location: [facility] HR: 89 * : 1955 (M/d/yyyy) Gender: Male Height: 780 in * Age: 62 yrs Ethnicity: [place] Weight: 152 lb * Ordering Physician: BRADLEY TAYLOR * Referring Physician: Shazia Marquez * Performed By: Jennifer Morales RDCS * * Reason For Study: COPD, CHEST PAIN * BSA: 10.7 m2 * -- Conclusions -- * 1. Normal left ventricular size with hyperdynamic systolic function. EF 65-70%. No regional wall motion abnormalities. No left ventricular hypertrophy. Type 1 diastolic dysfunction. * 2. No significant valvular abnormalities visualized. * 3. Technically difficult study, enhanced with IV Definity. * 4. No significant change from prior study on 11/07/2014. Procedure Details * A complete two-dimensional transthoracic echocardiogram was performed (2D, M-mode, Doppler and color flow Doppler). * The study was technically difficult. * There were technical limitations due to patient'sPoor acoustic windows secondary to severe lung disease. * A contrast injection of Definity was performed to improve assessment of LV function. * Contrast was injected into an intravenous site in the right arm. * One vial of Definity ultrasound contrast was diluted in normal saline to a total volume of 10 ml. A total of '3' ml of solution was administered during imaging. * Lot # [id number] of Definity utilized for procedure. * Expiration date 02/24. * The attending nurse who injected the contrast agent was BRIGETTE LANDIN RN. Left Ventricle * Normal left ventricular size with hyperdynamic systolic function. EF 65-70%. No regional wall motion abnormalities. No left ventricular hypertrophy. Type 1 diastolic dysfunction. Right Ventricle * The right ventricle is normal in size and function. * The right ventricular systolic function is normal as assessed by tricuspid annular plane systolic excursion (TAPSE) (normal >1.5 cm). Atria * The left atrial size is normal. * Right atrial size is normal. * There is no evidence of atrial septal defect, but resolution does not allow assessment for a patent foramen ovale. Mitral Valve * The mitral valve is grossly normal. * There is no mitral valve stenosis. * Significant mitral regurgitation is absent. Tricuspid Valve * The tricuspid valve is not well visualized, but is grossly normal. * There is no tricuspid stenosis. * Significant tricuspid regurgitation is absent. Aortic Valve * The aortic valve is not well visualized. * No hemodynamically significant valvular aortic stenosis. * There is no significant aortic regurgitation. Pulmonic Valve * The pulmonary valve is inadequately visualized, but the Doppler data is adequate for interpretation. * There is no pulmonic valvular stenosis. * There is no significant pulmonary regurgitation. Great Vessels * The aortic root is normal size. Pericardium/Pleural * There is no pericardial effusion. Great Vessels * Normal inferior vena cava size and collapsability with sniff indicates a normal right atrial pressure of 3 mmHg MMode 2D Measurements and Calculations IVSd 1.0 cm IVSs 1.5 cm LVIDd 4.7 cm LVIDs 2.8 cm LVPWd 0.96 cm LVPWs 1.8 cm IVS/LVPW 1.0 FS 40.8 % EDV(Teich) 101.4 ml ESV(Teich) 28.8 ml EF(Teich) 71.6 % EDV(cubed) 102.6 ml ESV(cubed) 21.3 ml EF(cubed) 79.3 % % IVS thick 49.9 % % LVPW thick 84.0 % LV mass(C)d 158.9 grams LV mass(C)dI 79.1 grams/m\S\2 LV mass(C)s 165.6 grams LV mass(C)sI 82.4 grams/m\S\2 CO(Teich) 5.5 l/min CI(Teich) 2.7 l/min/m\S\2 SV(Teich) 72.6 ml SI(Teich) 36.1 ml/m\S\2 CO(cubed) 6.2 l/min CI(cubed) 3.1 l/min/m\S\2 SV(cubed) 81.3 ml SI(cubed) 40.5 ml/m\S\2 Ao root diam 4.1 cm Ao root area 13.0 cm\S\2 LVOT diam 2.1 cm LVOT area 3.5 cm\S\2 LVAd ap4 29.0 cm\S\2 LVLd ap4 8.0 cm EDV(MOD-sp4) 86.7 ml EDV(sp4-el) 76.2 ml LVAs ap4 14.1 cm\S\2 LVLs ap4 6.0 cm ESV(MOD-sp4) 26.6 ml ESV(sp4-el) 26.8 ml EF(MOD-sp4) 69.3 % EF(sp4-el) 64.9 % LVAd ap2 26.3 cm\S\2 LVLd ap2 7.4 cm EDV(MOD-sp2) 76.3 ml LVAs ap2 11.7 cm\S\2 LVLs ap2 5.6 cm ESV(MOD-sp2) 20.0 ml EF(MOD-sp2) 73.8 % CO(MOD-sp4) 4.6 l/min CI(MOD-sp4) 2.3 l/min/m\S\2 SV(MOD-sp4) 60.1 ml SI(MOD-sp4) 29.9 ml/m\S\2 CO(MOD-sp2) 4.3 l/min CI(MOD-sp2) 2.1 l/min/m\S\2 SV(MOD-sp2) 56.3 ml SI(MOD-sp2) 28.0 ml/m\S\2 CO(sp4-el) 3.8 l/min CI(sp4-el) 1.9 l/min/m\S\2 SV(sp4-el) 49.5 ml SI(sp4-el) 24.6 ml/m\S\2 Doppler Measurements and Calculations MV E max radha 62.1 cm/sec MV A max radha 80.5 cm/sec MV E/A 0.77 MV dec time 0.31 sec Ao V2 max 138.5 cm/sec Ao max PG 7.7 mmHg Ao max PG (full) 2.3 mmHg KYAW(V,A) 2.9 cm\S\2 KYAW(V,D) 2.9 cm\S\2 LV V1 max PG 5.4 mmHg LV V1 max 115.9 cm/sec
== END | disposition home or self-care (01) ==
LOC: C.CPL 13:04
PROVIDERS: ATTEND Nurse Practitioner Family
DX: J44.9 Chronic obstructive pulmonary disease, unspecified (principal)

== ENCOUNTER → 2018-06-24 | Outpatient (CLI) | payer BC ==
[~2018-06-24] MED LIST changes: +IPRA-64 INH; -IPRASOL4 INH; -PERFLUTREN LIPID MICROSPHERE (DEFINITY) IV ONE
--- NOTE | 2018-06-24 12:21 | DIAGNOSTIC IMAGING REPORT ---
CHEST 2 VIEWS ROUTINE CLINICAL HISTORY: 62 years-old Male presenting with EXERTIONAL DYSPNEA,ROUTINE. TECHNIQUE: PA and lateral views of the chest were obtained. COMPARISON: 05/19/2018. FINDINGS: Atherosclerosis of the aortic arch. Cardiac silhouette normal in size. Hyperinflation noted. Calcified granuloma or scarring suggested in the right upper lung. Stable scarring in the right mid and left upper lung. No new opacity. No pleural effusion or pneumothorax. Posterior cervical fusion hardware. Upper abdomen normal. IMPRESSION: 1. Multifocal scarring, including the site of prior infectious infiltrate in the left upper lung. This continues to decrease in prominence consistent with expected evolution of healing. 2. Underlying emphysema. Electronically signed by: Elmer Shepherd M.D. 06/24/2018 12:20 PM Dictated Date/Time: 06/24/2018 12:15 PM
== END | disposition home or self-care (01) ==
LOC: C.RAD 11:53
PROVIDERS: ATTEND Nurse Practitioner Family
DX: R06.00 Dyspnea, unspecified (principal); J44.9 Chronic obstructive pulmonary disease, unspecified; J18.9 Pneumonia, unspecified organism

== ENCOUNTER 2019-04-05 09:47 | Inpatient (IN) ==
--- NOTE | 2019-03-27 11:57 | Anesthesiology Consultation ---
Date of Service March 27, 2019 Assessment & Plan (1) Encounter for pre-operative examination: Chart Review Chart Review: Acceptable Risk for Surgery and Patient NOT seen in Pre Admission Testing Consults Requested none History Surgery Operation Date: 04/05/19 12:00 Proposed Procedures p Robotic Right Video Assisted Thoracoscopy with Right Upper Lobe Wedge Resection, Possible Right Upper Lobectomy with Mediastinal Lymphadenectomy - Justin Mc MD, FACS Height/Weight Height: 5 ft 6 in Weight: 79.379 kg Allergies Allergy/AdvReac Type Severity Reaction Status Date / Time pirbuterol Allergy Severe "CHEST Verified 03/20/19 16:48 TIGHTENS" Medications Home Medications Medication Instructions Recorded Confirmed Last Taken Symbicort 2 puff INHALATION BID 02/21/19 03/20/19 03/02/19 06:00 albuterol sulfate 1 puff INHALATION Q6H PRN 02/21/19 03/20/19 03/02/19 07:30 citalopram 40 mg PO HS 02/21/19 03/20/19 03/01/19 19:00 guaifenesin [Mucinex] 600 mg PO BID 02/21/19 03/20/19 03/01/19 19:00 hydrochlorothiazide 12.5 mg PO QAM 02/21/19 03/20/19 03/01/19 08:00 ipratropium-albuterol 1 dose INHALATION BID 02/21/19 03/20/19 03/02/19 06:00 lisinopril 10 mg PO QAM 02/21/19 03/20/19 03/01/19 08:00 prednisone 30 mg PO UD 03/02/19 03/20/19 03/01/19 08:00 Past Medical History Medical History COPD (chronic obstructive pulmonary disease) SEVERE ON 3L O2 PRN ACTIVITY + 4.5L HS PER PULMONARY RECORDS (NOT NOTED PER RN PHONE INTERVIEW) Emphysema lung Hernia History of Legionnaire's disease 2016 Hypertension Lung nodule Past Family History Family History Sister Family history of cancer Past Surgical History Surgical History History of neck surgery FUSION- "LIMITED ROM" PER RN PHONE INTERVIEW S/P bronchoscopy with biopsy 03/02/19 EBUS with HEYDI Avalos with 8.5 ETT, gr 1 view with MAC 3 Social History Smoking Status: Former smoker tobacco type: cigarettes Smoking cigarettes per day: 30-40 Do You Dip or Chew Tobacco: Yes (1 CAN/2 DAYS (ADVISED)) Smoking End Date: QUIT 3 YEARS AGO Hx Alcohol Use: No Hx Substance Use: No substance use type: does not use Testing Laboratory Results Laboratory Tests 01/25/19 03/23/19 03/23/19 15:02 11:00 11:00 WBC 11.31 H Hgb 13.6 L Hct 42.1 Plt Count 356 PT 9.9 INR 1.0 APTT 23.4 Sodium 137 Potassium 3.9 Chloride 100 Carbon Dioxide 30 BUN 20 H Creatinine 1.06 Glucose 84 Electrocardiogram Date: 02/20/19 Findings: + NSR @ (88) Echocardiogram Date: 03/22/18 EF 65-70%. No RWMA. Type I DD. No significant valvular disease. Techcnically difficult study. No significant change from prior study 11/07/14 per report. Stress Test Date: 03/14/14 Type: DSE Negative dobutamine EKG for ischemia at 86% MPHR. Due to technically difficult windows and poor image quality- nondiagnostic stress ECHO. No chest pain. ECHO noted normal wall motion. EF 60%. Mild cLVH. No significant valvular disease. Pulmonary Function Test Date: 03/16/19 Findings: + FEV1 pre (36%), + FEV1 post (41%) and + DLCO (36%) Other Testing CT Chest: 01/06/19: Significant interval growth of the solid RUL nodule which now measures 21mm in diameter and highly suspicious for primary bronchogenic neoplasm. Peripheral postobstructive changes. No lymphadenopathy. Interval development of bandlike consolidation in the posterior left upper lobe with possible 10 mm nodule within this region. Severe emphysema with stable scarring in the anterior left upper lobe.
[~2019-04-05 09:47] MED LIST changes: -ASPI81TA28 PO; -AZIT-57 PO; -CITA20TA9 PO; -GUAI1TAB55 PO; -IPRA-64 INH; -IPRA0.03 NAE; -LISI10TA PO; +LR 15ML/HR IV SCH; -OXGN; -PRED10TA PO; -SYMIN INH; -THEO400T PO; -VNTHFA/IN INH
[2019-04-05] MEDS ORDERED: PROPOFOL IV EMULSION 10 MG/ML 20 ML VIAL IV ONE (12:11)
[2019-04-05] MEDS ORDERED: NEOSTIGMINE METHYLSULFATE 5 MG/5 ML SYR ONE ×2 (12:11→14:24)
[2019-04-05] MEDS ORDERED: ONDANSETRON INJ 2 MG/ML 2 ML VIAL ONE (12:11)
[2019-04-05] MEDS ORDERED: MIDAZOLAM HCL 1 MG/ML 2ML VIAL ONE ×2 (12:11→13:11)
[2019-04-05] MEDS ORDERED: GLYCOPYRROLATE 0.2 MG/ML VIAL ONE ×2 (12:11→20:58)
[2019-04-05] MEDS ORDERED: fentaNYL citrate 100 MCG/2 ML VIAL ONE ×3 (12:11→16:14)
[2019-04-05] MEDS ORDERED: LIDOCAINE HCL 2% 2 ML VIAL/AMP(20MG/ML) INFIL ONE (12:11)
[2019-04-05] MEDS ORDERED: DEXAMETHASONE SOD INJ 4 MG/ML VIAL ONE (12:11)
--- NOTE | 2019-04-05 12:42 | History & Physical Bridge Note ---
Date of Service April 05, 2019 History & Physical Bridge Note I have examined the patient, reviewed the History & Physical and in the interval since the performance of the History & Physical I have noted the following changes of clinical significance: no changes noted
[2019-04-05] MEDS ORDERED: BUPIVACAINE 0.5 % 5 MG/1 ML MPF 30ML VIAL ONE (12:52)
[2019-04-05] MEDS ORDERED: SODIUM CHLORIDE 0.9% PF 50 ML VIAL ONE (12:53)
[2019-04-05] MEDS ORDERED: BUPIVACAINE LIPOSOME 1.3% 266 MG/20 ML VIAL ONE (12:53)
[2019-04-05] MEDS ORDERED: ePHEDrine sulfate 50 MG/ML SYR ONE (14:24)
[2019-04-05] MEDS ORDERED: PHENYLEPHRINE HCL 10 MG/ML VIAL ONE ×2 (14:24→16:23)
[2019-04-05] MEDS ORDERED: SURGICEL ABSORB HEMOSTAT 2IN X 14IN TOP ONE (14:29)
[2019-04-05] MEDS ORDERED: CLINDAMYCIN 600 MG/54 ML BAG IV SCH (14:30)
[2019-04-05] MEDS ORDERED: ePHEDrine sulfate 50 MG/ML AMP IV PRN (15:21)
[2019-04-05] MEDS ORDERED: ONDANSETRON INJ 2 MG/ML 2 ML VIAL IV PRN (15:21)
[2019-04-05] MEDS ORDERED: fentaNYL citrate 100 MCG/2 ML VIAL IV PRN (15:21)
[2019-04-05] MEDS ORDERED: HYDROmorphone INJ 1 MG/ML SYRINGE IV PRN (15:21)
[2019-04-05] MEDS ORDERED: ATROPINE SULFATE 0.1 MG/ML 10ML SYR IV PRN (15:21)
[2019-04-05] MEDS ORDERED: ALBUTEROL 0.083% NEBU SOLN 3 ML VIAL INH PRN (15:24)
[2019-04-05] MEDS ORDERED: HYDROCORTISONE SOD SUCCINATE 100 MG/2 ML VIAL ONE (16:22)
[2019-04-05] MEDS ORDERED: CLINDAMYCIN PHOS 300 MG/2 ML VIAL ONE (16:23)
[2019-04-05] MEDS ORDERED: ePHEDrine sulfate 50 MG/ML AMP ONE (16:23)
--- NOTE | 2019-04-05 17:30 | Post Operative Brief Note ---
Immediate Post Op Note v1 Date of Surgery April 05, 2019 Pre & Post Diagnosis Operation Date: 04/05/19 11:50 Pre-Op Diagnosis: Right Lung Nodule Post-Op Diagnosis: Right upper lobe Adenocarcinoma Procedure Operation Date: 04/05/19 11:50 Actual Procedures p Robotic Right Video Assisted Thoracoscopy, Right Upper Lobectomy with M ediastinal Lymphadenectomy(Right) - Justin Mc MD, FACS Surgeon Justin Mc MD, FACS Facility Maintenance Supervisor Omar BROWN Estimated Blood Loss 100 Findings Consistent with Post-Op Diagnosis Drains Chest Tube (24 Fr Thal) and Lion Catheter (16 Fr lion catheter inserted by VU Donovan without difficulty, draining clear yellow urine. Lion catheter to be removed at end of case. )
[2019-04-05] MEDS ORDERED: METOCLOPRAMIDE HCL INJ 5 MG/ML 2 ML VIAL IV ONE (17:40)
--- NOTE | 2019-04-05 18:01 | XRay Report ---
XR chest 1V portable HISTORY: Postop. COMPARISON: Chest 03/02/2019. FINDINGS: Right chest tube terminates in the right lung apex. Small to moderate pneumothorax with a p leural gap of 3.5 cm is noted on the right. Volume loss with mild right mediastinal shift consistent with postoperative change. Small amount of right chest wall subcutaneous emphysema. The heart is norm al in size. No pleural effusions. Emphysema and left upper lobe densities persist. These are better a ppreciated on the 01/06/[address] IMPRESSION: Small to moderate right pneumothorax. A right chest tube terminates in the right lung apex. Electronically signed by: Malcom Negrete M.D. 04/05/2019 5:59 PM
--- NOTE | 2019-04-05 18:34 | Anesthesiology Progress Note ---
Date of Service April 05, 2019 Anesthesia Post Procedure Vital Signs Vital Signs: Temp Pulse Pulse Resp BP BP Pulse Ox 04/05/19 18:30 72 17 115/55 L 118/65 94 04/05/19 18:20 67 17 106/62 108/52 L 97 04/05/19 18:10 69 23 98/57 L 85/49 L 100 04/05/19 18:05 71 22 79/53 L 100 04/05/19 17:55 74 23 116/77 100 04/05/19 17:47 36.5 C 75 20 128/73 100 04/05/19 10:18 36.8 C 87 18 149/77 H 96 Pain Intensity Right Posterior Lateral Chest: Pain Intensity: 3 Transfer of Care Handoff Completed per policy Notes Mental Status: alert / awake / arousable and participated in evaluation Patient Amnestic to Procedure: Yes Nausea / Vomiting: adequately controlled Pain: adequately controlled Airway Patency, RR, SpO2: stable & adequate BP & HR: stable & adequate Hydration State: stable & adequate Anesthetic Complications: no major complications apparent and Pt Satisfied with anesthetic care
[2019-04-05] MEDS ORDERED: predniSONE 10 MG TABLET PO SCH (19:08)
[2019-04-05] MEDS: MoRPHine SULFATE 2 MG/ML CARP IV PRN ×3 (19:21→23:22)
[2019-04-05] MEDS: OXYCODONE HCL IR 5 MG TAB (IMMEDIATE RELEASE) PO PRN (19:45)
[2019-04-05] MEDS: ALBUT/IPRATROP 3MG/0.5MG NEB 3 ML VIAL INH SCH (20:21)
[2019-04-05] MEDS: D5W AND 1/2NSS 1,000 ML IV SCH (20:23)
[2019-04-05] MEDS: DOCUSATE SODIUM 100 MG CAP PO SCH (21:05)
[2019-04-05] MEDS: BUDESONIDE/FORMOTEROL FUMARATE 160/4.5 60 PUFFS/INHALER INH SCH (21:05)
[2019-04-05] MEDS: guaiFENesin 600 MG TABCR PO SCH (21:05)
[2019-04-05] MEDS: CITALOPRAM 40 MG TAB PO SCH (21:05)
[2019-04-05 21:07] LABS: Hematocrit (blood only) 38.6 % (42-52); Hemoglobin 12.2 g/dL (14.0-18.0); Mean Corpuscular Hgb Conc 31.6 g/dL (32-36); Mean Corpuscular Volume 92.8 fL (80-100); Mean Platelet Volume 9.3 fL (7.4-10.4); Platelet Count 310 K/uL (130-400); RDW Coefficient of Variation 14.1 % (11.5-14.5); Red Blood Count 4.16 M/uL (4.7-6.1); White Blood Count 14.42 K/uL (4.8-10.8)
[2019-04-05] MEDS: ACETAMINOPHEN 1,000 MG/100 ML VIAL IV SCH (21:08)
[2019-04-05 21:17] LABS: Partial Thromboplastin Ratio 0.9; Partial Thromboplastin Time 23.5 Seconds (21.0-31.0); Prothrombin Time 10.3 Seconds (9.0-12.0)
[2019-04-05 21:22] LABS: Creatinine Clr Calc Pharmacy 51.9 ml/min; Est GFR (African American) 67.6; Est GFR (Non-African American) 58.3
[2019-04-06] MEDS: MoRPHine SULFATE 2 MG/ML CARP IV PRN ×8 (03:20→23:25)
[2019-04-06] MEDS: ACETAMINOPHEN 1,000 MG/100 ML VIAL IV SCH ×2 (05:20→13:07)
[2019-04-06] MEDS: METOCLOPRAMIDE HCL INJ 5 MG/ML 2 ML VIAL IV SCH ×3 (05:21→21:12)
[2019-04-06] MEDS: ONDANSETRON INJ 2 MG/ML 2 ML VIAL IV PRN ×2 (05:21→19:48)
[2019-04-06] MEDS: D5W AND 1/2NSS 1,000 ML IV SCH ×2 (05:22→16:14)
[2019-04-06 06:15] LABS: Basophils # (auto) 0.04 K/uL (0-0.2); Basophils % (auto) 0.4 %; Eosinophils # (auto) 0.15 K/uL (0-0.5); Eosinophils % (auto) 1.6 %; Hematocrit (blood only) 33.4 % (42-52); Hemoglobin 10.7 g/dL (14.0-18.0); Immature Granulocytes # (auto) 0.02 K/uL (0.00-0.02); Immature Granulocytes % (auto) 0.2 %; Lymphocytes # (auto) 1.27 K/uL (1.2-3.4); Lymphocytes % (auto) 13.1 %; Mean Platelet Volume 8.8 fL (7.4-10.4); Monocytes # (auto) 1.09 K/uL (0.11-0.59); Monocytes % (auto) 11.3 %; Neutrophils % (auto) 73.4 %; Platelet Count 251 K/uL (130-400); RDW Coefficient of Variation 14.1 % (11.5-14.5); RDW Standard Deviation 47.3 fL (36.4-46.3); Red Blood Count 3.63 M/uL (4.7-6.1); White Blood Count 9.67 K/uL (4.8-10.8)
[2019-04-06 06:36] LABS: BUN Creatinine Ratio 16.5 (10-20); Calcium 7.5 mg/dl (8.5-10.1); Creatinine Clr Calc Pharmacy 46.2 ml/min; Est GFR (African American) 58.6; Est GFR (Non-African American) 50.6; Potassium 4.3 mmol/L (3.5-5.1)
--- NOTE | 2019-04-06 07:10 | XRay Report ---
XR chest 1V portable CLINICAL HISTORY: RUL postoperative evaluation COMPARISON STUDY: 04/05/2019 FINDINGS: Slight increase in volume of right apical pneumothorax. Maximum pleural separation has incr eased from 3.5 to 4.0 cm. Slight increase in subcutaneous emphysematous change. Slight interstitial prominence left base unalte red. IMPRESSION: 1. Slight increase in volume of right apical pneumothorax. 2. Unchanged position of right-sided chest tube. 3. Slight increase in subcutaneous emphysema right hemithorax. The above report was generated using voice recognition software. It may contain grammatical, syntax or spelling errors. Electronically signed by: Jaime Felix M.D. 04/06/2019 7:09 AM
[2019-04-06] MEDS: ALBUT/IPRATROP 3MG/0.5MG NEB 3 ML VIAL INH SCH ×2 (07:17→20:13)
[2019-04-06] MEDS: ENOXAPARIN INJ 40 MG/0.4 ML SYR SQ SCH (08:41)
[2019-04-06] MEDS: guaiFENesin 600 MG TABCR PO SCH ×2 (08:41→21:11)
[2019-04-06] MEDS: DOCUSATE SODIUM 100 MG CAP PO SCH ×2 (08:41→21:11)
[2019-04-06] MEDS: BUDESONIDE/FORMOTEROL FUMARATE 160/4.5 60 PUFFS/INHALER INH SCH ×2 (08:41→21:12)
[2019-04-06] MEDS: LISINOPRIL 10 MG TAB PO SCH (08:44)
[2019-04-06] MEDS: OXYCODONE HCL IR 5 MG TAB (IMMEDIATE RELEASE) PO PRN (08:47)
--- NOTE | 2019-04-06 10:25 | Anesthesiology Progress Note ---
Date of Service April 06, 2019 Anesthesia Post Procedure Vital Signs Vital Signs: Temp Pulse Pulse Pulse Resp BP BP 04/06/19 08:49 76 116/71 04/06/19 07:19 69 16 04/06/19 07:00 36.8 C 75 20 115/67 04/06/19 05:10 80 96/44 L 04/06/19 05:05 77 89/54 L 04/06/19 05:00 37.2 C 75 18 97/63 L 04/06/19 03:00 37 C 75 18 95/63 L 04/06/19 01:08 37.1 C 72 18 97/60 L 04/05/19 23:00 36.7 C 76 20 104/66 04/05/19 22:13 112/71 04/05/19 22:12 36.6 C 78 16 70/37 L 04/05/19 21:03 36.3 C L 76 16 112/71 04/05/19 20:25 76 16 04/05/19 20:07 36.5 C 72 16 126/76 04/05/19 19:00 36.6 C 75 20 119/64 04/05/19 18:45 70 20 04/05/19 18:30 72 17 115/55 L 04/05/19 18:20 67 17 106/62 04/05/19 18:10 69 23 98/57 L 04/05/19 18:05 71 22 79/53 L 04/05/19 17:55 74 23 116/77 04/05/19 17:47 36.5 C 75 20 128/73 BP Pulse Ox 04/06/19 08:49 04/06/19 07:19 95 04/06/19 07:00 93 04/06/19 05:10 04/06/19 05:05 04/06/19 05:00 95 04/06/19 03:00 95 04/06/19 01:08 95 04/05/19 23:00 95 04/05/19 22:13 04/05/19 22:12 97 04/05/19 21:03 97 04/05/19 20:25 99 04/05/19 20:07 100 04/05/19 19:00 99 04/05/19 18:45 126/78 94 04/05/19 18:30 118/65 94 04/05/19 18:20 108/52 L 97 04/05/19 18:10 85/49 L 100 04/05/19 18:05 100 04/05/19 17:55 100 04/05/19 17:47 100 Pain Intensity Right Posterior Lateral Chest: Pain Intensity: 7 Notes Mental Status: alert / awake / arousable and participated in evaluation Patient Amnestic to Procedure: Yes Nausea / Vomiting: adequately controlled Pain: adequately controlled Airway Patency, RR, SpO2: stable & adequate BP & HR: stable & adequate Hydration State: stable & adequate Anesthetic Complications: no major complications apparent
[2019-04-06] MEDS: ALBUTEROL HFA 8 GM INHALER INH PRN (11:11)
--- NOTE | 2019-04-06 14:40 | Operative Report ---
DATE OF OPERATION: 04/05/2019 DATE OF PROCEDURE: 04/05/2019 PREOPERATIVE DIAGNOSES: 1. Hypermetabolic mass, right upper lobe. 2. Severe bullous emphysema. 3. Long history of cigarette smoking. POSTOPERATIVE DIAGNOSES: 1. Adenocarcinoma, right upper lobe. 2. Hypermetabolic mass, right upper lobe. 3. Severe bullous emphysema. 4. Long history of cigarette smoking. PROCEDURE: 1. Robot-assisted thoracoscopic right upper lobectomy. 2. Mediastinal lymphadenectomy. SURGEON: Justin Mc MD SYRUP FILTERER: STEPHANIE Burger (Mr. Patel was present for the entire case and was at the patient's bedside while I was at the console). ANESTHESIA: General anesthesia, endotracheal intubation. INDICATION FOR PROCEDURE AND FINDINGS: Mr. Chin is a 63-year-old male who has severe bullous emphysema and was found to have hypermetabolic mass in his right upper lobe, which had grown. This is very concerning for nonsmall cell lung carcinoma. I performed an endobronchial ultrasound and navigational bronchoscopy and his lymph nodes did not appear to have metastatic disease; however, I did not get a diagnosis, but I felt for sure we were dealing with a carcinoma. We studied him. He had very poor lung function, is on home oxygen for an extended period of time; however, I believe this patient would be helped by having a right upper lobectomy from a functional standpoint as it contributes only 2% to his overall lung function on our nuclear medicine studies, mainly on our quantitative lung scan. On 04/05/2019, patient underwent an uncomplicated robot-assisted thoracoscopic right upper lobectomy. Frozen section showed this mass to be an adenocarcinoma. Margins were negative. He was extubated in the room. He did very well. PROCEDURE: The patient was brought to operating room and placed in supine position. General anesthesia induced and endotracheal intubation was performed with a double lumen tube. After appropriate monitoring lines and tubes and catheters placed, the patient was turned in left lateral decubitus position, right chest prepped and draped in usual sterile fashion. After appropriate timeout had been called and antibiotics given, an incision was made through the 8th interspace and a 12 mm camera port was placed. The camera was placed and we could see that there were very little in the way of adhesions. I then placed 8-mm port medially and another 8-mm port laterally and then far laterally and approximately ninth interspace, I placed a 5 mm port. We then made an assistant infant toddler teacher port just above the diaphragm anteriorly. All this was done under thoracoscopic guidance. A 266 mg of Exparel mixed with 250 mL of normal saline, and 30 mL of 0.5% bupivacaine. This was injected to each of the port sites and injected into the interspace for intercostal block from the 2nd through the 11th rib. Attention was then turned towards the lower lobe and the inferior pulmonary ligament was dissected out and level 9 node taken. A large packet of level 8 nodes were removed and then a very large packet of level 7 nodes was removed. I then carefully and meticulously dissected out the level 11 node at the bifurcation of the right upper lobe bronchus and the bronchus intermedius. I was quite aggressive in removing this entire node and this identified the posterior ascending artery quite nicely. This was a level 11 node. This was handed off. I then pulled the lung inferiorly and dissected out a large pack at a level 10 nodes and dissected out the artery in the superior aspect of the superior pulmonary vein quite nicely. We freed this up and actually the vessels were very well visualized here. It should be noted I went under the azygos vein to get this level 10 and then I went above the azygos to get a very large packet of level 2 and level 4 nodes. Bleeding was controlled with cautery and we had very little bleeding at this point. The fissures were incomplete. There were some adhesions in the upper lobe and chest wall which I took down in the upper lobe and pericardial fat anteriorly. Care was taken to avoid injury to the phrenic nerve, but these were taken down. I then dissected out the anterior mediastinum and dissected out some more level 10 nodes as well as some 11 nodes. I then fired an Endo-IVA stapler across the superior pulmonary vein, which had been isolated very nicely. This opened up things nicely and I fired a stapler across the A1 segment. This opened up things quite nicely and then I went posteriorly and took the A3 segment or the posterior ascending branch to the upper lobe. Finally, this left the apical anterior and I was able to free it up from the bronchus and I divided the bronchus with Endo-IVA stapler and this freed up the artery nicely. After taking the artery with an Endo-IVA stapler, I completed the fissures with multiple firings of the stapler. This went very nicely. I then delivered the lobe off the field at a large Endobag. We brought this out through the assistant infant toddler teacher's port and we had to lengthen a bit to do this. It is probably about 3 cm total. We saw no significant bleeding, although we did see a small area of air leaking, which we addressed with the Endo-IVA stapler. We did not really see much in the way of a leak, although he did have an intermittent leak after we documented through chest tube. A 24-Honduran chest tube was placed in the anterior 8 mm port and directed towards the apex, sutured in place with heavy silk suture. Removing the lobe, we did suffer a fracture of a small area of cartilage, which was excised. I took about a cm off to prevent discharge from rubbing and then I used #0 PDS to stabilize the anterior cartilage to the inferior cartilage. A 0 Polysorb was used to close the muscle layer over this. A 4-0 Monocryl was used in running subcuticular fashion to approximate the wound edges of all the wounds. He had an intermittent air leak. He was extubated in the room. He had negligible blood loss. He tolerated it quite nicely. He was transported to the postanesthesia care unit in stable condition. I attest to the content of the Intraoperative Record and any orders documented therein. Any exceptions are noted below. CHRISTOPHER
[2019-04-06] MEDS ORDERED: LIDOCAINE 2% JELLY 5 ML TUBE ONE (15:27)
[2019-04-06] MEDS ORDERED: Nursing to Pharmacy Communication ONE ×2 (15:50→18:35)
[2019-04-06] MEDS ORDERED: LIDOCAINE 2% JELLY 5 ML TUBE EXT ONE (16:00)
--- NOTE | 2019-04-06 16:07 | Progress Note ---
DATE: 04/06/2019 Mr. Chin was seen today 1 day after a robot-assisted thoracoscopic right upper lobectomy with mediastinal lymphadenectomy for an adenocarcinoma. He still has a pneumothorax which is rather small and at 3 cm but has a persistent air leak, although it is not continuous. He has done well on supplemental oxygen. He sounds good. He has some issues such as pain with the chest tube and anxiety. We are going to give him Ativan. He has also had some issues with urinary retention and required a straight cath this morning for 400 mL and has not voided much today. We will repeat his bladder scan. We may have to straight cath him one more time. We will put him on regular Flomax tonight, although I have given him a dose this morning. If he does not improve overnight, we will insert a Pastrana and leave and have the urologist evaluate him.
[2019-04-06] MEDS: TAMSULOSIN HCL 0.4 MG CAP PO SCH (18:40)
[2019-04-06] MEDS: CITALOPRAM 40 MG TAB PO SCH (21:12)
[2019-04-06] MEDS: ACETAMINOPHEN 325 MG TAB PO SCH (23:25)
[2019-04-07] MEDS: D5W AND 1/2NSS 1,000 ML IV SCH ×2 (00:43→10:41)
[2019-04-07] MEDS: MoRPHine SULFATE 2 MG/ML CARP IV PRN ×6 (02:12→23:43)
[2019-04-07] MEDS: LORazepam 0.5 MG TAB PO PRN ×3 (03:43→21:55)
[2019-04-07] MEDS ORDERED: LORazepam 1 MG/2 ML VIAL IV STA (03:54)
[2019-04-07] MEDS ORDERED: MoRPHine SULFATE 4 MG/ML 1 ML CARP\\VIAL IV STA (03:55)
[2019-04-07] MEDS ORDERED: XYLOCAINE 1%/SOD BICARB 20 ML VIAL INFIL ONE (03:55)
[2019-04-07] MEDS ORDERED: MoRPHine SULFATE 4 MG/ML 1 ML CARP\\VIAL ONE (03:58)
--- NOTE | 2019-04-07 05:18 | Operative Report ---
DATE OF OPERATION: 04/07/2019 PREPROCEDURE DIAGNOSIS: Inadvertent removal of chest tube with increasing right pneumothorax. POSTOPERATIVE DIAGNOSIS: Inadvertent removal of chest tube with increasing right pneumothorax. PROCEDURE: Insertion of right 24-Nigerien anterior chest tube. SURGEON: Justin Mc MD ANESTHESIA: Local. SPECIFICS OF PROCEDURE: Mr. Chin is a 63-year-old rather high-risk patient who underwent a robot-assisted thoracoscopic right upper lobectomy on 04/05/2019. He did well with this surprisingly. He is on the floor, but has a fairly significant air leak as he has significant bullous emphysema. He has done well with that and the air leaks have looked a bit better yesterday. His lung is also improved. Interestingly enough, he had a postoperative pneumothorax apically although it was getting smaller. At approximately 3:00 this morning, the patient pulled out his chest tube inadvertently. It is still unclear to me exactly how that occurred. Apparently, he was getting up to use the bathroom. At any rate, I arrived to find him with a saturation of 94% on a 10 L mask. He was awake and alert. I sedated him with Ativan IV as well as morphine. His anxiety level decreased. I then prepped and draped his right anterior chest and inserted a 24-Nigerien chest tube. He tolerated it well. DESCRIPTION OF PROCEDURE: With the patient in a supine position at about a 30-degree incline, I anesthetized the anterior chest. We did this with a 25-gauge needle with 1% Xylocaine. A longer needle was used to anesthetize the deeper tissues and I went above the next rib and anesthetized the subcutaneous tissues and pleura. We got free-flowing air and I removed the syringe and placed a guidewire. It should be noted we had a larson of air through the needle when I did this. The needle was removed. A dilator was slid over and then removed. A 24-Nigerien chest tube with an obturator was slid over this without difficulty and directed apically. I inserted this between 15 and 20 cm. The obturator and guidewire were removed. It was obviously in the pleural cavity. We had no bleeding. A 0 silk was used to suture this in securely on both sides of the incision. This was attached to a Pleur-evac and we did have an air leak, although it was smaller. A chest x-ray surprisingly enough showed we had resolution of our pneumothorax completely. I placed Acticoat around this and then taped it securely. He tolerated it well. I attest to the content of the Intraoperative Record and any orders documented therein. Any exception s are noted below.
[2019-04-07] MEDS: ACETAMINOPHEN 325 MG TAB PO SCH ×4 (05:48→23:44)
--- NOTE | 2019-04-07 06:44 | XRay Report ---
XR chest 1V portable CLINICAL HISTORY: Chest tube insertion. COMPARISON STUDY: Chest radiograph April 06, 2019 6:54 AM. FINDINGS: Subcutaneous gas within the right chest wall and neck has increased. A right chest tube is in place with interval repositioning. A moderate right pneumothorax has decreased in size since prior exam. Superior pleural separation now measures 2.9 cm. Emphysema is present. Patient is rotated. Rig ht hilar prominence is noted. There are postoperative findings within the right lung. Left upper lobe densities are unchanged. IMPRESSION: 1. Moderate interval decrease in size of a right pneumothorax status post chest tube repositioning. 2. Increase in subcutaneous gas within the right chest wall and neck. Electronically signed by: Edgar Josue M.D. 04/07/2019 6:43 AM
[2019-04-07] MEDS: ALBUT/IPRATROP 3MG/0.5MG NEB 3 ML VIAL INH SCH ×2 (07:18→19:43)
[2019-04-07] MEDS: guaiFENesin 600 MG TABCR PO SCH ×2 (09:03→20:32)
[2019-04-07] MEDS: BUDESONIDE/FORMOTEROL FUMARATE 160/4.5 60 PUFFS/INHALER INH SCH ×2 (09:03→20:32)
[2019-04-07] MEDS: LISINOPRIL 10 MG TAB PO SCH (09:04)
[2019-04-07] MEDS: DOCUSATE SODIUM 100 MG CAP PO SCH ×2 (09:04→20:32)
[2019-04-07] MEDS: ENOXAPARIN INJ 40 MG/0.4 ML SYR SQ SCH (10:33)
[2019-04-07] MEDS ORDERED: KETOROLAC TROMETHAMINE 15 MG/ML VIAL IV PRN (12:41)
--- NOTE | 2019-04-07 13:28 | XRay Report ---
XR chest 1V portable CLINICAL HISTORY: hypoxia dyspnea COMPARISON STUDY: 04/07/2019 FINDINGS: Slight improvement in volume of a right apical pneumothorax. This is improved from 2.9 2. 1.7 cm cm in maximum pleural separation. Subcutaneous emphysematous change is similar. Left lung remains clear. IMPRESSION: 1. Continued improvement of the right apical pneumothorax now with a pleural separation of 1.7 cm. 2. Stable right hemithoracic subcutaneous emphysematous change. The above report was generated using voice recognition software. It may contain grammatical, syntax or spelling errors. Electronically signed by: Jaime Felix M.D. 04/07/2019 1:27 PM
--- NOTE | 2019-04-07 13:37 | Surgery Progress Note ---
Date of Service April 07, 2019 Assessment & Plan (1) Adenocarcinoma of lung: -pt. is s/p RUL 04/05/19 -chest tube inadvertently removed last night, so anterior chest tube placed on 04/07/19 -following new chest tube, CXR revealed improvement of previously noted pneumothorax -will plan on repeating CXR in am -I was notified by RN that pt. was having significant pain: -CT examined and noted to have air leak but was functioning properly -repeat CXR performed and noted to have an apical pneumothorax, but was smaller than what was noted on most recent CXR -toradol added to pain regimen (initially given 15 mg IV, but dose changed to 30 mg IV q6h prn) -neurontin 100 mg po tid added to pain regimen as some pain may be neuropathic in nature -will continue oxycodone 5 mg po q6h prn pain -will continue morphine 1-2 mg IV q1h prn pain -will continue tylenol 650 mg po q6h scheduled -pt. appears to have a significant component of anxiety: -he has he home dose of celexa 40 mg daily reordered -will increase ativan to 0.5 mg po q8h prn -reassurance provided to patient and family -pt. had difficulty voiding during initial post-op phase but this has improved: -he is receiving flomax 0.4 mg daily -pt. has significant COPD (utilized home oxygen before surgery): -he has been maintained on home regimen with symbicort -duonebs are in place (on scheduled basis) as he uses combivent as outpt. -mucinex has also been maintained -lovenox is in place for DVT prevention -family updated at bedside -discussed plan with RN Subjective Pt. notes he is having pain with deep inspiration, greatest in the area of chest tube. No N/V. He notes a poor apatite, but is eating a little. Discussed with RN--pt. ambulated in hallway on previous shift and was noted to have voided an adequate amount. Physical Exam Constitutional: no acute distress Respiratory: BS are decreased at bases, R>L; no wheezing, occasional rhonchi noted; small amount of subcutaneous emphysema noted in chest wall and neck, no facial swelling Gastrointestinal (Abdomen): soft and non-tender Musculoskeletal: no calf tenderness with palpation Results & Data Vital Signs (Past 12 Hours) Vital Signs Temp Pulse Pulse Resp BP Pulse Ox 04/07/19 12:31 36.9 C 88 24 145/47 H 90 04/07/19 10:54 36.7 C 81 18 127/77 92 04/07/19 09:01 37.1 C 81 20 102/61 95 04/07/19 07:18 80 20 93 04/07/19 03:23 37.1 C 85 22 161/61 H 93
[2019-04-07] MEDS: PANTOprazole 40 MG TAB PO SCH (14:02)
[2019-04-07] MEDS: GABAPENTIN 100 MG CAP PO SCH ×2 (14:02→20:32)
[2019-04-07] MEDS: TAMSULOSIN HCL 0.4 MG CAP PO SCH (17:16)
[2019-04-07] MEDS: KETOROLAC 30 MG/ML VIAL IV PRN ×2 (19:42→20:29)
[2019-04-07] MEDS: CITALOPRAM 40 MG TAB PO SCH (20:32)
[2019-04-07] MEDS: OXYCODONE HCL IR 5 MG TAB (IMMEDIATE RELEASE) PO PRN (21:36)
[2019-04-07] MEDS: ONDANSETRON INJ 2 MG/ML 2 ML VIAL IV PRN (21:37)
[2019-04-08] MEDS: ALBUTEROL HFA 8 GM INHALER INH PRN ×4 (03:51→23:19)
[2019-04-08] MEDS: KETOROLAC 30 MG/ML VIAL IV PRN ×3 (03:55→19:35)
[2019-04-08] MEDS: OXYCODONE HCL IR 5 MG TAB (IMMEDIATE RELEASE) PO PRN ×4 (03:59→23:20)
[2019-04-08] MEDS: MoRPHine SULFATE 2 MG/ML CARP IV PRN ×6 (04:57→20:33)
[2019-04-08] MEDS: ACETAMINOPHEN 325 MG TAB PO SCH ×4 (06:12→23:20)
[2019-04-08 07:05] LABS: Hematocrit (blood only) 30.7 % (42-52); Hemoglobin 10.1 g/dL (14.0-18.0); Mean Corpuscular Hgb Conc 32.9 g/dL (32-36); Mean Corpuscular Volume 89.8 fL (80-100); Mean Platelet Volume 8.9 fL (7.4-10.4); Platelet Count 238 K/uL (130-400); RDW Coefficient of Variation 13.7 % (11.5-14.5); RDW Standard Deviation 45.3 fL (36.4-46.3); Red Blood Count 3.42 M/uL (4.7-6.1); White Blood Count 13.46 K/uL (4.8-10.8)
--- NOTE | 2019-04-08 07:23 | XRay Report ---
XR chest 1V portable CLINICAL HISTORY: Right-sided pneumothorax COMPARISON STUDY: 04/07/2019 FINDINGS: There is progressive decreased right lung volume. The right-sided chest tube remains unchan ged in position. There there is 2 cm right apical pneumothorax. There is extensive right-sided subcut aneous emphysema. There is no focal left lung consolidation. Surgical changes are present within the cervical spine. There are diffuse mildly increased right lung airspace opacities, likely secondary to right lung atelectasis although a pneumonia could appear similar[. There is right hilar prominence. There is left apical bullous emphysema. IMPRESSION: 1. Persistent right-sided pneumothorax with a pleural separation of 2 cm 2. Diffuse increased density of the right lung with right lung volume loss. The findings are likely s econdary to right lung atelectasis although a right lung pneumonia could appear similar 3. Right hilar fullness Electronically signed by: Michael Villasenor M.D. 04/08/2019 7:22 AM
[2019-04-08] MEDS: ALBUT/IPRATROP 3MG/0.5MG NEB 3 ML VIAL INH SCH ×2 (07:25→11:17)
[2019-04-08] MEDS ORDERED: PIPERACILL/TAZOBAC CONSULT ACTIVE PRN (07:40)
[2019-04-08 07:47] LABS: Creatinine Clr Calc Pharmacy 56.8 ml/min; Est GFR (African American) 75.4
--- NOTE | 2019-04-08 08:33 | Surgery Progress Note ---
Date of Service April 08, 2019 Assessment & Plan (1) Adenocarcinoma of lung: -pt. is s/p RUL 04/05/19 -chest tube inadvertently removed on 04/07/19; anterior chest tube placed on 04/07/19 -following new chest tube, CXR revealed improvement of previously noted pneumothorax -chest tube examined this morning and noted to have an air leak which appears smaller than what was noted yesterday -CXR today shows improvement of pneumothorax, however there is right sided atelectasis with volume loss and concern for possible developing infiltrate -WBC count noted to be 13K this morning -due to labs and CXR findings will place on empiric zosyn -pt. counseled extensively on the importance of ambulation, coughing, deep breathing, pulmonary toilet, and use of IS -in addition I stressed the importance of being OOB for meals and also being OOB for extended periods of time throughout the day -will maintain on mucinex as he takes this as outpt. -will continue nebs and inhalers (see below) -pain control measures are in place and appears to be effective -toradol (initially given 15 mg IV, but dose changed to 30 mg IV q6h prn) -neurontin 100 mg po tid as some pain may be neuropathic in nature -oxycodone 5 mg po q6h prn pain -morphine 1-2 mg IV q1h prn pain -tylenol 650 mg po q6h scheduled -significant component of anxiety present: -home dose of celexa 40 mg daily is ordered -ativan to 0.5 mg po q8h prn -difficulty voiding during initial post-op phase noted but this has improved: -he is receiving flomax 0.4 mg daily -pt. has significant COPD and hypoxia: -he utilized home oxygen, 3 liters via NC continuously before surgery -pre-op ABG on 3 liters of oxygen showed no hypercarbia, but PO2 noted to be in 60s -PFTS showed DLOC in the 30s and decreased FEV1 -he has been maintained on home regimen of symbicort -duonebs are in place (on scheduled basis) as he uses combivent as outpt. -mucinex has also been maintained as noted above -lovenox is in place for DVT prevention -discussed plan with RN -spent approximately 30 minutes at bedside this morning with patient Subjective Pt. visited at 7:30 am this morning. Pt. continues to have pain with deep inspiration, most noticeable in the area of chest tube. No N/V. He notes his apatite has slightly improved. He has been able to void without difficulty. He reports some SOB at times, but nebs help improve this. Discussed with RN--pt. has been ambulating in the in hallway each shift. She does not note any additional concerns at this time. Physical Exam Physical Exam: no distress noted Respiratory: BS decreased bilaterally, R>L, rhonchi noted that clear somewhat with cough, no wheezing, no use of accessory muscles; subcutaneous emphysema noted in neck and chest wall has not increased, no fascial swelling Cardiovascular: Rate/Rhythm: regular rate and regular rhythm Gastrointestinal (Abdomen): soft and non-tender Musculoskeletal: no calf tenderness Results & Data Vital Signs (Past 12 Hours) Vital Signs Temp Pulse Pulse Pulse Resp BP Pulse Ox 04/08/19 07:27 78 18 93 04/08/19 06:15 87 L 04/08/19 04:15 04/08/19 03:56 93 04/08/19 03:55 36.7 C 85 26 H 168/75 H 85 L 04/08/19 00:20 04/07/19 23:39 36.9 C 85 22 120/74 94 Pulse Ox 04/08/19 07:27 04/08/19 06:15 04/08/19 04:15 96 04/08/19 03:56 04/08/19 03:55 04/08/19 00:20 96 04/07/19 23:39
[2019-04-08] MEDS ORDERED: PIPERACILLIN/TAZOBACTAM 3.375 GM in DEXTROSE 5% 100 ML IV ONE (08:45)
[2019-04-08] MEDS: PANTOprazole 40 MG TAB PO SCH (09:15)
[2019-04-08] MEDS: guaiFENesin 600 MG TABCR PO SCH ×2 (09:15→20:30)
[2019-04-08] MEDS: DOCUSATE SODIUM 100 MG CAP PO SCH ×2 (09:15→20:30)
[2019-04-08] MEDS: GABAPENTIN 100 MG CAP PO SCH ×3 (09:16→20:30)
[2019-04-08] MEDS: LISINOPRIL 10 MG TAB PO SCH (09:16)
[2019-04-08] MEDS: BUDESONIDE/FORMOTEROL FUMARATE 160/4.5 60 PUFFS/INHALER INH SCH ×2 (09:16→20:29)
[2019-04-08] MEDS: ENOXAPARIN INJ 40 MG/0.4 ML SYR SQ SCH (09:23)
[2019-04-08] MEDS: PIPERACILLIN/TAZOBACTAM 3.375 GM in DEXTROSE 5% 100 ML IV SCH ×2 (14:08→21:22)
[2019-04-08] MEDS: ALBUT/IPRATROP 3MG/0.5MG NEB 3 ML VIAL NEB PRN ×2 (16:00→19:43)
[2019-04-08] MEDS: TAMSULOSIN HCL 0.4 MG CAP PO SCH (17:01)
[2019-04-08] MEDS: LORazepam 0.5 MG TAB PO PRN (17:34)
[2019-04-08 18:06] LABS: Allen Test Pos (Pos); HCO3 ABG 23 mmol/L (19-24); Oxygen Saturation ABG 94.7 % (90-95); PCO2 ABG 41 mmHg (35-46); PO2 ABG 76 mm/Hg (80-95); pH ABG 7.36 (7.35-7.45)
--- NOTE | 2019-04-08 18:23 | Pulmonary Consultation ---
Date of Consultation April 08, 2019 Assessment & Plan (1) Adenocarcinoma of lung: Underwent curative-intent resection and at this point he is a candidate for Q6 months FU with CT chest for 2 years and then annually for 3 more years per NCCN guidelines Would recommend sending pathology sample for genetic testing and PDL-1 testing. Present on Admission?: Yes (2) COPD (chronic obstructive pulmonary disease): Patient at home is on combivent and symbicort per records but he seems to be non adherent except to rescue inhaler albuterol He is placed on duoneb and symbicort and I agree with that titrate O2 to maintain SpO2 88-92% patient is in no distress if additional control is needed reflumilast may be added. He mentioned he used theophylline in the past. agree with anxiolysis but limit ativan doses to 0.5 mg Q6-8 hours Present on Admission?: Yes (3) Basal pneumonia of both lungs: It is unclear if the density in the RLL field is infecious however, use of zosyn post op is prudent at least emperically for 2-3 days. Will send procalcitonin serial CXR Present on Admission?: No (4) Pneumothorax: Very infrequent leak in the pleurevac. 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 The patient has GOLD stage 3 COPD (FEV1 43%) who was followed up by Dr Boateng and found to have an enlarging posterior RUL nodule 2cm in size (close to major fissure) which turned out to be PET avid to a max SUV of 2.9. He was referred to Dr Mc for management who performed EBUS and Navigational bronchoscopy on this hypermetabolic mass. Given the limited lung function quantitative perfusion scan was performed and showed 2% perfusion RUL. Given extensive emphysema and the minimal contribution of the RUL to ventilation/oxygenation it was thought that a lobectomy would have minimal impact on lung reserves, a curative intent for lung cancer, and a surgical lung volume reduction type of benefit on the underlying conducive COPD pattern (extensive apical bullous disease) status of the patient. The patient underwent cardiac workup and ultimately robot-assisted RU Lobectomy on 04/05/2019. Pathology showed a moderately infiltrating adenocarcinoma size 2.5x1.5x1 cm with no lymphovascular or visceral pleural invasion. [address] were negative for malignancy. Stations 9R, 8R, 10R, 7, 11R, 12R, 2R and 4R were all negative for tumor and showed anthracotic LN. There is no genotyping (EGFR, ALK Min ROS) or PDL receptor status of the tumor available in the chart. The procedure was complicated with a slight pneumothorax and he has been on Chest Tube to suction with a persistent leak. That was followed by serial CXR and has decreased roughly from 3 cm to 1.7 then 2.0 cm. There is SC emphysema. At bedside the patient is on O2 at 3 Liters saturating well into the mid 90%. He is not in acute distress but is obviously anxious. He was started on ativan. He denies hemoptysis, pain is controllable with toradol and oxycontin. He denies wheezes, shortness of breath out of his baseline but complains of the pleuritic pain on coughing (Chest tube). We had a discussion about controller inahlers and rescue inhalers. Apparently he had an episode of urinary retention post op but he is currently on ipratropium with no retention. No other complaints offered. Allergies Allergy/AdvReac Type Severity Reaction Status Date / Time pirbuterol Allergy Severe "CHEST Verified 04/05/19 10:13 TIGHTENS" Home Medications Home Medications Medication Instructions Recorded Confirmed Type Symbicort 2 puff INHALATION BID 02/21/19 04/05/19 History albuterol sulfate 1 puff INHALATION Q6H PRN 02/21/19 04/05/19 History citalopram 40 mg PO HS 02/21/19 04/05/19 History guaifenesin [Mucinex] 600 mg PO BID 02/21/19 04/05/19 History hydrochlorothiazide 12.5 mg PO QAM 02/21/19 04/05/19 History ipratropium-albuterol 1 dose INHALATION BID 02/21/19 04/05/19 History lisinopril 10 mg PO QAM 02/21/19 04/05/19 History prednisone 30 mg PO UD 03/02/19 03/20/19 History Patient History Medical History COPD (chronic obstructive pulmonary disease) SEVERE ON 3L O2 PRN ACTIVITY + 4.5L HS PER PULMONARY RECORDS (NOT NOTED PER RN PHONE INTERVIEW) Emphysema lung Hernia History of Legionnaire's disease 2016 Hypertension Lung nodule Surgical History History of neck surgery FUSION- "LIMITED ROM" PER RN PHONE INTERVIEW S/P bronchoscopy with biopsy 03/02/19 EBUS with Jamar Broch, [place] with 8.5 ETT, gr 1 view with MAC 3 Family History Sister Family history of cancer Social History Preferred Language: Japanese Communication Ability: Effective Watch [employer] Grinder Required: No Beliefs That Will Affect Care: None Current Living Situation: Spouse and Other Current Living Situation Comment: [facility] Other Information That Helps Us Care for You: No Feels Safe at Home: Yes Safety Concerns: Feels Safe At This Time Smoking Status: Former smoker Tobacco Type: cigarettes Cigarettes Per Day: 30- 40 Do You Dip or Chew Tobacco: Yes (1 CAN/2 DAYS (ADVISED)) Smoking End Date: QUIT 3 YEARS AGO Second Hand Exposure: No Tobacco Cessation Education Requested by Patient: No Hx Alcohol Use: No Hx Substance Use: No Review of Systems Review of Systems: All systems reviewed & are unremarkable except as noted in HPI & below Physical Exam Constitutional: WD/WN, vitals as above Eyes: PERRL, conjunctivae normal, anicteric sclerae ENMT: external ear and nose normal, oropharynx normal Neck: trachea midline, no thyromegaly Respiratory: Auscultation: lungs clear to auscultation bilaterally Prolonged expiratory phase but lung sounds are clear. He has subcutaneouse empysema paplable over most of his lateral Right hemithorax. Cardiovascular: RRR, no murmur, no edema Gastrointestinal (Abdomen): normal bowel sounds, soft, nontender, no hepatosplenomegaly Musculoskeletal: no cyanosis or clubbing, extremities motor strength 5/5 Skin: no rashes, warm and dry Neurologic: No gross focal motor deficits Psychiatric: Affect: + anxious affect Results & Data Vital Signs (Past 12 Hours) Vital Signs Temp Pulse Pulse Resp BP BP Pulse Ox 04/08/19 16:03 78 16 93 04/08/19 15:30 36.6 C 77 19 128/72 96 04/08/19 11:17 79 16 92 04/08/19 11:13 36.5 C 79 21 118/72 92 04/08/19 11:10 86 L 04/08/19 07:45 36.7 C 81 19 95/61 L 95 04/08/19 07:27 78 18 93 04/08/19 06:15 87 L
[2019-04-08] MEDS: CITALOPRAM 40 MG TAB PO SCH (20:30)
[2019-04-09] MEDS: ALBUT/IPRATROP 3MG/0.5MG NEB 3 ML VIAL INH SCH ×3 (00:55→12:53)
[2019-04-09] MEDS: LORazepam 0.5 MG TAB PO PRN (01:11)
[2019-04-09] MEDS: KETOROLAC 30 MG/ML VIAL IV PRN ×2 (01:15→10:04)
[2019-04-09] MEDS: MoRPHine SULFATE 2 MG/ML CARP IV PRN ×5 (03:29→22:06)
[2019-04-09] MEDS: ALBUTEROL HFA 8 GM INHALER INH PRN (04:50)
[2019-04-09] MEDS: OXYCODONE HCL IR 5 MG TAB (IMMEDIATE RELEASE) PO PRN ×3 (05:57→21:28)
[2019-04-09] MEDS: ACETAMINOPHEN 325 MG TAB PO SCH ×4 (05:58→23:44)
[2019-04-09] MEDS: PIPERACILLIN/TAZOBACTAM 3.375 GM in DEXTROSE 5% 100 ML IV SCH ×3 (05:59→21:21)
[2019-04-09] MEDS: DOCUSATE SODIUM 100 MG CAP PO SCH ×2 (09:55→20:29)
[2019-04-09] MEDS: GABAPENTIN 100 MG CAP PO SCH ×3 (09:56→20:29)
[2019-04-09] MEDS: guaiFENesin 600 MG TABCR PO SCH ×2 (09:56→20:29)
[2019-04-09] MEDS: PANTOprazole 40 MG TAB PO SCH (09:56)
[2019-04-09] MEDS: BUDESONIDE/FORMOTEROL FUMARATE 160/4.5 60 PUFFS/INHALER INH SCH ×2 (09:56→20:29)
[2019-04-09] MEDS: LISINOPRIL 10 MG TAB PO SCH (09:57)
[2019-04-09] MEDS: ENOXAPARIN INJ 40 MG/0.4 ML SYR SQ SCH (09:59)
--- NOTE | 2019-04-09 10:12 | XRay Report ---
SINGLE VIEW CHEST CLINICAL HISTORY: Pneumothorax. Status post right upper lobe resection. FINDINGS: An AP, portable, upright chest radiograph is compared to study dated 04/08/2019 and correlate d with chest CT dated 01/06/2019. The examination is degraded by portable technique and patient rotatio n. The cardiomediastinal silhouette is unremarkable. Emphysema and chronic interstitial thickening a re similar to previous. Again seen is volume loss consistent with right upper lobe resection. A chest tube at the right apex is unchanged, as is a small right apical pneumothorax. Pleural fluid is seen at the right lung base. Patchy consolidative changes suggested throughout the right lung. The left lalit ng appears clear noting basilar atelectasis. The skeletal structures are osteopenic. Fusion hardware is noted in the lower cervical spine. Extensive subcutaneous emphysema is noted along the right chest wall and in the right lower neck. IMPRESSION: 1. Emphysema and postoperative change from right upper lobe resection are again noted. 2. A right apical chest tube is unchanged in position, and a small right apical pneumothorax persists . This is unchanged from yesterday. 3. Airspace opacification throughout the right lung is similar to previous. 4. Pleural fluid is again noted the right lung base. Electronically signed by: Julius Wynne M.D. 04/09/2019 10:11 AM
--- NOTE | 2019-04-09 12:22 | Progress Note ---
DATE: 04/09/2019 The patient looks very good today. He had some struggle yesterday and a bit concerned about his right remaining middle and lower lobe. Overall, he is better. He is only on 3 liters of O2 this morning. His air leak is much smaller than it was 48 hours ago. He still has a small pneumothorax. I think part of this is his lung being held down by the chest tube. He does not have an effusion. Quite frankly, I am pleased with the patient. He sounds better, although he still has some wheezing. His procalcitonin level was only 0.25. He probably does not have pneumonia. I think at this point, he is settling down and he looks better and hopefully we will get this chest tube out in the next 24-48 hours and get him home. He is quite pleased with his pathology. He is a stage I. Multiple lymph nodes were negative for metastatic disease. Overall, he has done quite well and I think he is going to benefit from this operation.
[2019-04-09] MEDS: TAMSULOSIN HCL 0.4 MG CAP PO SCH (17:09)
[2019-04-09] MEDS: ALBUT/IPRATROP 3MG/0.5MG NEB 3 ML VIAL NEB PRN (19:27)
[2019-04-09] MEDS: CITALOPRAM 40 MG TAB PO SCH (20:29)
[2019-04-10] MEDS: ALBUT/IPRATROP 3MG/0.5MG NEB 3 ML VIAL INH SCH ×4 (02:06→16:07)
[2019-04-10] MEDS: PIPERACILLIN/TAZOBACTAM 3.375 GM in DEXTROSE 5% 100 ML IV SCH (06:23)
[2019-04-10] MEDS: ACETAMINOPHEN 325 MG TAB PO SCH ×4 (06:23→23:25)
[2019-04-10 06:38] LABS: Creatinine Clr Calc Pharmacy 69.2 ml/min; Est GFR (African American) 95.8; Est GFR (Non-African American) 82.6
[2019-04-10] MEDS: DOCUSATE SODIUM 100 MG CAP PO SCH ×2 (08:32→21:43)
[2019-04-10] MEDS: ENOXAPARIN INJ 40 MG/0.4 ML SYR SQ SCH (08:32)
[2019-04-10] MEDS: guaiFENesin 600 MG TABCR PO SCH ×2 (08:33→21:43)
[2019-04-10] MEDS: LISINOPRIL 10 MG TAB PO SCH (08:33)
[2019-04-10] MEDS: GABAPENTIN 100 MG CAP PO SCH ×3 (08:33→21:43)
[2019-04-10] MEDS: PANTOprazole 40 MG TAB PO SCH (08:33)
[2019-04-10] MEDS: BUDESONIDE/FORMOTEROL FUMARATE 160/4.5 60 PUFFS/INHALER INH SCH ×2 (08:33→21:43)
[2019-04-10] MEDS: MoRPHine SULFATE 2 MG/ML CARP IV PRN ×4 (09:39→21:48)
[2019-04-10] MEDS ORDERED: POLYETHYLENE (MIRALAX) 17 GM PACK PO PRN (09:49)
--- NOTE | 2019-04-10 09:58 | Progress Note ---
DATE: 04/10/2019 Mr. Chin was seen today on 04/10/2019. He is now postoperative day 5. Quite pleased with Mr. Chin. His air leak has been considerably better and in fact it is intermittent on suction. I am quite pleased with his aeration. He is coughing very well. He is in much less pain and much less anxious. He is eating well. We are going to give him some MiraLax to move his bowels today, but quite frankly he looks very good. When his air leak resolves, we will discharge him. He has done remarkably well.
[2019-04-10] MEDS: ALBUT/IPRATROP 3MG/0.5MG NEB 3 ML VIAL NEB PRN ×2 (11:37→20:17)
[2019-04-10] MEDS: OXYCODONE HCL IR 5 MG TAB (IMMEDIATE RELEASE) PO PRN (16:04)
--- NOTE | 2019-04-10 16:13 | Progress Note ---
DATE: 04/10/2019 PULMONARY MEDICINE PROGRESS NOTE Chart reviewed, the patient examined. SUBJECTIVE: The patient appears stable. He was seen by Dr. Dodge on 04/08 in consultation. The patient has severe COPD, GOLD stage III with an FEV1 of 43%, followed by Dr. Boateng and sent to Dr. Mc with an enlarging posterior right upper lobe nodule 2 cm in size, close to major fissure, PET-avid and has had limited lung function, but the perfusion lung scan showed minimal contribution by the right upper lobe and he underwent lobectomy on 04/05/2019 with pathology showing a moderately differentiated infiltrating adenocarcinoma 2.5 x 1.5 cm with no lymphovascular or visceral pleural invasion and 2 lymph nodes that were negative for malignancy. Previous EBUS were all negative for tumor and showed anthracotic lymph nodes. I do not see any genotyping (EGFR, ALK or PD-L receptor status currently) and a slight pneumothorax postoperatively with persistent air leak and some subQ emphysema. OBJECTIVE: CURRENT VITAL SIGNS: Blood pressure 122/68, pulse 88 and regular, respiratory rate 20, temperature 36.5, O2 sat 95% on 4 liters. SKIN: Without lesion. HEENT: Atraumatic, normocephalic, PERRLA, EOMI. Conjunctivae pale. LUNGS: Distant P and A. CARDIAC: Regular rate and rhythm. No murmurs or gallops. ABDOMEN: Soft, scaphoid. EXTREMITIES: No pedal edema. NEUROLOGICAL: Intact. The patient has intermittent air leak. OVERALL ASSESSMENT: A 63-year-old with moderately severe chronic obstructive pulmonary disease, GOLD stage III with a right upper lobe adenocarcinoma resected and postoperative air leak that is now intermittent. Chest x-ray yesterday shows emphysema and postoperative changes from the right upper lobe resection, small right apical pneumothorax noted. The patient continues to have significant increased opacity and density with volume loss involving the remaining part of the right lung. The patient has been placed on DuoNebs with Symbicort with O2 supplementation and pulmonary toilet. Still concerned about the degree of volume loss, infiltrate involving the remaining 2 lobes on the right side and would continue to follow with current therapy.
[2019-04-10] MEDS: TAMSULOSIN HCL 0.4 MG CAP PO SCH (18:38)
[2019-04-10] MEDS: CITALOPRAM 40 MG TAB PO SCH (21:43)
[2019-04-11] MEDS: ALBUT/IPRATROP 3MG/0.5MG NEB 3 ML VIAL NEB PRN ×4 (03:47→22:15)
[2019-04-11] MEDS: ACETAMINOPHEN 325 MG TAB PO SCH ×4 (05:27→23:24)
[2019-04-11 05:38] LABS: Hematocrit (blood only) 29.2 % (42-52); Hemoglobin 9.5 g/dL (14.0-18.0); Mean Corpuscular Hgb Conc 32.5 g/dL (32-36); Mean Corpuscular Volume 90.1 fL (80-100); Mean Platelet Volume 8.7 fL (7.4-10.4); Platelet Count 374 K/uL (130-400); RDW Coefficient of Variation 13.9 % (11.5-14.5); RDW Standard Deviation 46.1 fL (36.4-46.3); Red Blood Count 3.24 M/uL (4.7-6.1); White Blood Count 6.75 K/uL (4.8-10.8)
[2019-04-11 06:17] LABS: Est GFR (African American) 102.1; Est GFR (Non-African American) 88.1
[2019-04-11] MEDS: ALBUT/IPRATROP 3MG/0.5MG NEB 3 ML VIAL INH SCH ×2 (07:32→19:10)
--- NOTE | 2019-04-11 07:56 | XRay Report ---
XR chest 2V routine CLINICAL HISTORY: 63 years-old Male presenting with pneumothorax. TECHNIQUE: Portable upright AP view of the chest was obtained. COMPARISON: 04/09/2019. FINDINGS: Large bore right pleural drain terminates in the right upper lung. Atherosclerosis of the aortic arch . Cardiac silhouette top normal in size. No significant change in size of the small right apical pneu mothorax with a pleural separation of 17 mm, previously 18 mm. Extensive associated subcutaneous emph ysema along the right lateral chest wall. Improved aeration of the right lung with decreased opacity. Unchanged right lung volume. Heterogeneity and hyperinflation of the left lung with relative radiolu cency of the upper lung. Osseous structures normal. IMPRESSION: 1. Decreased diffuse right lung infiltrate with improved aeration of the right lung. 2. Unchanged small right apical pneumothorax. 3. Right pleural drain remains in place. 4. Suspected underlying emphysema. Electronically signed by: Elmer Shepherd M.D. 04/11/2019 7:54 AM
[2019-04-11] MEDS: ENOXAPARIN INJ 40 MG/0.4 ML SYR SQ SCH (08:31)
[2019-04-11] MEDS: guaiFENesin 600 MG TABCR PO SCH ×2 (08:31→21:33)
[2019-04-11] MEDS: LISINOPRIL 10 MG TAB PO SCH (08:31)
[2019-04-11] MEDS: GABAPENTIN 100 MG CAP PO SCH ×3 (08:31→21:33)
[2019-04-11] MEDS: DOCUSATE SODIUM 100 MG CAP PO SCH ×2 (08:31→21:33)
[2019-04-11] MEDS: BUDESONIDE/FORMOTEROL FUMARATE 160/4.5 60 PUFFS/INHALER INH SCH ×2 (08:31→21:33)
[2019-04-11] MEDS: MoRPHine SULFATE 2 MG/ML CARP IV PRN ×4 (08:34→20:05)
--- NOTE | 2019-04-11 09:38 | Surgery Progress Note ---
Date of Service April 11, 2019 Assessment & Plan (1) Adenocarcinoma of lung: -pt. is s/p RUL 04/05/19 -chest tube inadvertently removed on 04/07/19; anterior chest tube placed on 04/07/19 -following new chest tube, CXR revealed improvement of previously noted pneumothorax -chest tube examined this morning and previously noted air leak has markedly diminished (is only present intermittently with forceful cough) -chest tube to remain in place until air leak completely resolved -CXR today shows small apical pneumothorax on right; improved aeration noted in right lung irvin -WBC count noted to be normal this [id number] this morning -pt. has been treated with empiric zosyn due to previous CXR findings and previously noted leukocytosis; this has now been stopped -pt. has been counseled extensively on the importance of ambulation, coughing, deep breathing, pulmonary toilet, and use of IS (IS performance has greatly improved this morning--3x high than what was noted over previous weekend) -will maintain on mucinex as he takes this as outpt. -will continue nebs and inhalers (see below) -pain control measures are in place and appears to be effective -toradol (initially given 15 mg IV, but dose changed to 30 mg IV q6h prn) -neurontin 100 mg po tid as some pain may be neuropathic in nature -oxycodone 5 mg po q6h prn pain -morphine 1-2 mg IV q1h prn pain -tylenol 650 mg po q6h scheduled -component of anxiety felt to be present: -home dose of celexa 40 mg daily is ordered -ativan to 0.5 mg po q8h prn -difficulty voiding during initial post-op phase noted but this has improved: -he is receiving flomax 0.4 mg daily -pt. has significant COPD and hypoxia: -he utilized home oxygen, 3 liters via NC continuously before surgery: -will pna on getting 2-Step prior to d/c to determine oxygen needs upon return home -pre-op ABG on 3 liters of oxygen showed no hypercarbia, but PO2 noted to be in 60s -PFTS showed DLOC in the 30s and decreased FEV1 -he has been maintained on home regimen of symbicort -duonebs are in place (on scheduled basis) as he uses combivent as outpt. -mucinex has also been maintained as noted above -lovenox is in place for DVT prevention Subjective Pt. visited at 8:00 am this morning. Previously noted pain with deep inspiration has markedly improved and the patient notes he feels better than he did a few days ago.No N/V. He notes his apatite has improved. He reported a BM yesterday. He continues to void without difficulty. No SOB reported this am. He is coughing up some blood tinged sputum.at times. He continues to ambulate in hallway with assistance. Discussed with RN--he confirmed that pt. has been ambulating and does not voice any additional concerns at this time. Physical Exam Constitutional: well nourished; no acute distress Respiratory: BS have improved; no wheezing, occasional rhonchi that clear with cough. No use of accessory muscles. Subcutaneous emphysema noted on previous exams has decreased and is barely noticeable. Gastrointestinal (Abdomen): soft and non-tender Musculoskeletal: -no calf tenderness Results & Data Vital Signs (Past 12 Hours) Vital Signs Temp Pulse Pulse Pulse Resp BP Pulse Ox 04/11/19 07:48 36.7 C 87 16 117/73 95 04/11/19 07:36 04/11/19 06:06 95 04/11/19 06:05 92 04/11/19 03:40 80 18 94 04/10/19 23:13 37.1 C 95 H 16 93/57 L 96 Pulse Ox 04/11/19 07:48 04/11/19 07:36 96 04/11/19 06:06 04/11/19 06:05 04/11/19 03:40 04/10/19 23:13
[2019-04-11] MEDS: methylPREDNISolone 40 MG in SYRINGE 0 ML IV SCH (15:54)
--- NOTE | 2019-04-11 16:13 | Progress Note ---
DATE: 04/11/2019 PULMONARY MEDICINE PROGRESS NOTE Chart reviewed, the patient examined. SUBJECTIVE: The patient had inadvertently removed his chest tube on 04/07/2019 and a repeat chest tube was placed today on 04/07/[address] previously. The patient has been observed air leak on forced expiration only. He states when the chest tube had been inadvertently removed, he was extremely dyspneic with right anterior chest discomfort. He is bringing up some phlegm, but he thinks most of his nasopharyngeal secretions with postnasal drip. OBJECTIVE: VITAL SIGNS: Blood pressure 117/73, pulse 93 and regular, respiratory rate 18, temperature 36.7, O2 sat 96% on 4 liters. SKIN: Without lesion. HEENT: Atraumatic, normocephalic. PERRLA. EOMI. Conjunctivae pink. Sclerae nonicteric. Fundi poorly visualized. NECK: Neck veins not distended at 45 degrees. No adenopathy. LUNGS: Coarse wheezes, right posterior lung field. CARDIAC: Regular rate and rhythm. I do not appreciate a gallop. ABDOMEN: Soft, protuberant. EXTREMITIES: Trace pedal edema. No clubbing. Peripheral cyanosis. NEUROLOGIC: Intact. No lateralizing signs. LABORATORY DATA: White count is 6700, H and H 9.5 and 29.2 down from 13.4 and 41.2 on 03/09/2018. Chest x-ray following the chest tube insertion shows significant decrease and diffuse right lung infiltrate with improved aeration of the right lung, but still has the pleural separation of 17 mm at the apex. A chest tube in place with underlying emphysema noted. There is volume loss on that right lung. ABGs on 04/08/2019, pH 7.36, pCO2 of 41, pO2 of 76 on 6 liters at that time. BUN 24, creatinine 1.4 on admission. Calcium was depressed at 7.5 as was the albumin of 3.5. Currently, the patient is receiving nebulizer treatments with DuoNeb and has been restarted on Celexa. He is on Lovenox prophylactically and antibiotics have been discontinued. Flutter valve has been prescribed along with incentive spirometry. OVERALL ASSESSMENT: A 63-year-old status post right upper lobe resection for adenocarcinoma with moderately severe chronic obstructive pulmonary disease and significant emphysema, now with persistent air leak, although small. There may also be a space issue here with the remaining right middle and lower lobe, unable to fully occupy the right hemithorax. Suspect this with continued volume loss, but the infiltrate or pneumonitis /and/or edema appears to be slowly clearing. The patient is stable and would continue to observe for and hopefully see improved aeration at the right lung and clearing of this infiltrate/edema. They require steroid therapy along with incentive spirometry and aerosolized bronchodilator. MTDD
[2019-04-11] MEDS: ALBUTEROL HFA 8 GM INHALER INH PRN (18:23)
[2019-04-11] MEDS: TAMSULOSIN HCL 0.4 MG CAP PO SCH (18:24)
[2019-04-11] MEDS: CITALOPRAM 40 MG TAB PO SCH (21:33)
[2019-04-12] MEDS: MoRPHine SULFATE 2 MG/ML CARP IV PRN ×2 (00:04→03:35)
[2019-04-12] MEDS: methylPREDNISolone 40 MG in SYRINGE 0 ML IV SCH ×2 (03:31→12:04)
[2019-04-12] MEDS: ACETAMINOPHEN 325 MG TAB PO SCH ×2 (06:02→11:56)
[2019-04-12] MEDS: ALBUT/IPRATROP 3MG/0.5MG NEB 3 ML VIAL INH SCH (07:15)
--- NOTE | 2019-04-12 07:20 | XRay Report ---
XR chest 1V portable HISTORY: 63 years-old Male pneuothorax follow up study in a patient with right pneumothorax COMPARISON: Chest radiographs 04/11/2019 TECHNIQUE: Portable AP view of the chest FINDINGS: Cardiac mediastinal and hilar silhouettes are unchanged. Stable positioning of the right-sided chest tube. Persistent subcutaneous emphysema of the lateral right chest wall. Postoperative changes of the right upper lung. Slightly decreased size of the right pneumothorax, now with pleural separation ruddy suring up to 1.1 cm, previously 1.7 cm. Persistent right lung opacities. Mild interstitial coarsening throughout the left lung is stable. Degenerative changes of the shoulders and spine. IMPRESSION: 1. Small right pneumothorax has decreased in size from comparison. Stable positioning of the right-si ded chest tube. 2. Additional stable findings as above. The above report was generated using voice recognition software. It may contain grammatical, syntax o r spelling errors. Electronically signed by: Mikel Mcpherson M.D. 04/12/2019 7:19 AM
--- NOTE | 2019-04-12 07:44 | XRay Report ---
XR chest 1V portable HISTORY: 63 years-old Male tube removal chest post removal of the right-sided chest tube COMPARISON: Chest radiograph of same day at 7:08 AM TECHNIQUE: Portable AP view of the chest FINDINGS: Cardiac mediastinal and hilar silhouettes are unchanged. Status post removal of the right-sided chest tube. Persistent subcutaneous emphysema of the lateral right chest wall. Postoperative changes of th e right upper lung. Slightly increased size of the right pneumothorax, now with pleural separation me asuring up to 1.5 cm, previously 1.1 cm persistent right lung opacities. Mild interstitial coarsening throughout the left lung is stable. Degenerative changes of the shoulders and spine. IMPRESSION: Status post removal of the right-sided chest tube with slightly increased size of the sma ll right pneumothorax. The above report was generated using voice recognition software. It may contain grammatical, syntax o r spelling errors. Electronically signed by: Mikel Mcpherson M.D. 04/12/2019 7:42 AM
[2019-04-12 07:57] LABS: Creatinine Clr Calc Pharmacy 78.2 ml/min; Est GFR (Non-African American) 91.4
[2019-04-12] MEDS: LISINOPRIL 10 MG TAB PO SCH (08:25)
[2019-04-12] MEDS: guaiFENesin 600 MG TABCR PO SCH (08:26)
[2019-04-12] MEDS: DOCUSATE SODIUM 100 MG CAP PO SCH (08:26)
[2019-04-12] MEDS: GABAPENTIN 100 MG CAP PO SCH (08:26)
[2019-04-12] MEDS: BUDESONIDE/FORMOTEROL FUMARATE 160/4.5 60 PUFFS/INHALER INH SCH (08:26)
[2019-04-12] MEDS: ENOXAPARIN INJ 40 MG/0.4 ML SYR SQ SCH (08:27)
[2019-04-12] MEDS: OXYCODONE HCL IR 5 MG TAB (IMMEDIATE RELEASE) PO PRN (08:32)
--- NOTE | 2019-04-12 10:26 | Discharge Summary ---
DISCHARGE DIAGNOSIS: 1. Adenocarcinoma, right upper lobe (T1c, N0, M0 or stage I adenocarcinoma). HOSPITAL COURSE: Reggie Chin is a 63-year-old man with terrible bullous emphysema who had much of his emphysematous changes confined to his upper lobes. He had a mass in his right upper lobe, which was terribly emphysematous. His pulmonary functions were quite poor and he was on home oxygen; however, I felt that excising this right upper lobe may achieve 2 goals. One it would rid him of this hypermetabolic mass, which I was quite sure was a cancer. Number 2, it would essentially offer him a volume reduction surgery. We had a long talk about this and while he was high risk I felt he would do well. On 04/05/2019, the patient underwent an uncomplicated robot-assisted thoracoscopic right upper lobectomy with mediastinal lymphadenectomy. He did very well considering his poor lung function, was watched on the floor. He had a few issues, most of which were associated with his anxiety. He also inadvertently became confused and pulled his right chest tube out. I had to come in and reinsert that on the 2nd postop day. I placed an anterior chest tube. He had an air leak at the time of surgery, and this decreased quite nicely and steadily over the course of his hospitalization. He also had some atelectasis. However, with Ativan and with ambulation and aggressive pulmonary toilet, the patient did quite well. His air leak resolved. I removed his chest tube on postop day #7. His incisions were clean. He had minimal pain, although pain was an issue combined with his anxiety initially. I was quite pleased with how he looked and felt on his last day of hospitalization. He is walking well in the hallway. All in all, I was quite pleased. We will discharge him today and discharge instructions had been given. He is to call me should any problems arise. I will see him back in the office in 1 week with an x-ray. It should be noted, the patient will not require therapy for this. It is my hope we will be able to wean him off of oxygen. Also noteworthy that he did not require any more oxygen than he was on when we started.
== END 2019-04-12 12:52 | disposition home or self-care (01) | DRG 164 ==
LOC: ASU 09:47 → 3N 17:24

== ENCOUNTER 2020-08-17 10:23 | Inpatient (IN) ==
[2020-08-17] MEDS ORDERED: ONDANSETRON INJ 2 MG/ML 2 ML VIAL IV STA (10:38)
[2020-08-17] MEDS ORDERED: fentaNYL citrate 100 MCG/2 ML VIAL IV PRN (10:38)
--- NOTE | 2020-08-17 10:47 | Emergency Department Note ---
Impression & Plan Pneumonia, Chest pain, Hypoxia ED Provider Note NAME: MONTY COTTON AGE: 64 SEX: M : 1955 ARRIVES VIA: Ambulance INFORMANT: Patient, ED PROVIDER(S): Jonah Rodríguez DO CHIEF COMPLAINT: Chest pain HPI: The patient is a 64-year-old male who has a history of lung cancer with metastasis to the liver who presented to the emergency department for an evaluation of chest pain. The patient describes an acute onset of left-sided chest pain. He describes it as lower in the posterior chest. The patient has a history of COPD and wears 4 L of oxygen constantly. He also has a history of surgery on his right lung for tumor. He denies having any fever. He was recently treated at our facility for pneumonia. He was given Toradol prior to arrival. He describes the pain is constant. He has a history of pulmonary embolism and states that the pain is worsened with deep inspiration. He denies having any fever. He does have a cough which is nonproductive at this time. He states he has been compliant with his outpatient medications including nebulizer treatment prior to arrival. ROS: See above HPI for pertinent positives & negatives. A total of 10 systems reviewed and were otherwise negative. PAST MEDICAL HISTORY: See Below PAST SURGICAL HISTORY: See Below FAMILY HISTORY: See Below SOCIAL HISTORY: See Below HOME MEDICATIONS: See Below ALLERGIES: See Below VITALS: See Below PHYSICAL EXAMINATION: GENERAL: The patient is awake and alert. He is very anxious appearing and appears to be uncomfortable. EYES: The conjunctivae are clear. The pupils are round and reactive. EARS, NOSE, MOUTH AND THROAT: The nose is without any evidence of any deformity. Mucous membranes are moist. Tongue is midline. NECK: The neck is nontender and supple. RESPIRATORY: Diminished breath sounds are noted throughout. Absent lung sounds were noted in the left lung field with scattered rales in the right lung field. There was significant conversational dyspnea. CARDIOVASCULAR: Regular rate and rhythm noted there no murmurs rubs or gallops normal S1 normal S2. GASTROINTESTINAL: The abdomen is soft. Abdomen is nontender. BACK: No midline tenderness was noted. There was tenderness over the left posterior rib cage. There is no crepitus. MUSCULOSKELETAL/EXTREMITIES: There is no evidence of gross deformity full range of motion is noted in the hips and shoulders. SKIN: Pedal edema was noted bilaterally. NEUROLOGIC: Patient is awake alert and oriented x3. MEDICAL DECISION MAKING: The patient is a 64-year-old male who presented to the emergency department for an evaluation of difficulty breathing and chest pain. The patient has a history of lung cancer as well as venous pulmonary thromboembolic disease. He presented to the emergency department with diminished lung sounds in the left lung field. Chest x-ray did not show any definite pneumothorax. Given the patient's history CT of the chest was also obtained. I discussed the patient's laboratory and radiographic studies with him. He was treated with bronchodilator therapy as well as IV fluids and IV antibiotics. He was reevaluated multiple times. At this time I do feel the patient would be a good candidate for inpatient management. He was seen recently in our facility and did not wish to be treated as an inpatient was started on oral antibiotics. At this time I feel his pneu monia is worsening and now appears to be bilateral. For this reason he was treated with IV antibiotics. I did will discuss this case with the [facility] hospitalist group. Likely he will require inpatient management to further evaluate the causes of his symptoms as well as to ensure the patient continues to improve. His oxygen requirement appears to improved already. Triage Nursing notes reviewed. Prior medical records reviewed Vital Signs: reviewed and remarkable for hypoxia Differential diagnosis: Reactive airway disease, pneumonia, pneumothorax, COPD, CHF, infections, cardiac ischemia, pulmonary embolism, musculoskeletal, gastrointestinal, as well as other pathologies. ER treatment provided: See below Diagnostics interpreted by me: ECG: EKG was obtained in the emergency department. My interpretation is sinus tachycardia at 106 bpm. There was no ectopy. There was no acute ST segment abnormalities noted. This was compared to a tracing from August 152019. No significant changes were noted. Cardiac Monitoring: An order was placed for continuous cardiac monitoring. The monitor shows a rate of 110 bpm with sinus tachycardia rhythm. Laboratory studies: As stated above and show below. Imaging studies: See below Consultation(s): 1520: I discussed this case with Dr. Jack. He was on-call for the [facility] group. They will evaluate the patient in the emergency department for further management and disposition. Past Med/Surg History Medical History Anticoagulated on Coumadin Chronic neck pain COPD (chronic obstructive pulmonary disease) severe, 3L O2 continuous-- prednisone 10mg daily* (hx recurrent exacerbations) Emphysema lung History of acute respiratory failure History of anxiety History of Legionnaire's disease 2016 History of lung cancer S/P lobectomy (03/2019): MAC 4, Grade 1 view. JESSICA. Hypertension Liver metastasis On home oxygen therapy 3L CONT. Osteoarthritis Pulmonary embolism lower left lobe dx'd Fall 2018, (possibly r/t lung surgery or cancer)- on coumadin Surgical History H/O prostate biopsy History of neck surgery CERVICAL FUSION ([facility]) History of surgery RT VAT W/ RT UPPER LOBECTOMY + MEDIASTINAL LYMPHADENECTOMY: 04/05/19: Grade view 1, MAC#4 at [facility] History of tooth extraction S/P bronchoscopy with biopsy 03/02/19 EBUS with Jamar Broch, [place] with 8.5 ETT, gr 1 view with MAC 3 Family History Sister Family history of cancer lung cancer with mets to the brain COPD (chronic obstructive pulmonary disease) Cancer Mother COPD (chronic obstructive pulmonary disease) Heart disease Diabetes Other No family history of adverse response to anesthesia Social History Smoking Status: Former smoker Tobacco Type: Cigarettes Cigarettes Per Day: 30-40; Second Hand Exposure: No; Hx Alcohol Use: No Hx Substance Use: No Preferred Language: Somali Communication Ability: Effective Visual Impairment: No Limitations Fixed Income Analyst Required: No Beliefs That Will Affect Care: None Current Living Situation: Spouse Current Living Situation Comment: [facility] Feels Safe at Home: Yes Assistive Devices: Denture - Upper, Denture - Lower, Glasses and Oxygen - Continuous Allergies Allergies Allergy/AdvReac Type Severity Reaction Status Date / Time pirbuterol Allergy Severe maxair - Verified 08/17/20 10:55 "CHEST TIGHTENS" amoxicillin [From Augmentin] Allergy Mild Rash Verified 08/17/20 10:55 clavulanic acid Allergy Mild Rash Verified 08/17/20 10:55 [From Augmentin] Home Meds Home Medications Medication Instructions Recorded Confirmed guaifenesin [Mucinex] 600 mg PO BID 02/21/19 08/17/20 levothyroxine 25 mcg PO QAM 07/27/19 08/17/20 oxycodone 10 mg tablet 10 mg PO Q6H PRN 03/12/20 08/17/20 multivitamin 1 tab PO DAILY 04/16/20 08/17/20 prednisone 5 mg tablet 5 mg PO QAM tab 04/23/20 08/17/20 furosemide 20 mg tablet 40 mg PO QAM 04/30/20 08/17/20 lisinopril 20 mg PO BID 07/17/20 08/17/20 ibuprofen 200 mg capsule 400 mg PO Q8H PRN cap 08/06/20 08/17/20 fentanyl 25 mcg/hr transdermal 1 patch TRANSDERMAL [id number] 08/12/20 08/17/20 patch albuterol sulfate [Ventolin HFA] 2 puff INHALATION Q4H PRN 08/15/20 08/17/20 duloxetine 20 mg PO DAILY 08/15/20 08/17/20 folic acid 1 mg PO DAILY 08/15/20 08/17/20 ipratropium-albuterol 3 ml INHALATION Q4H PRN 08/15/20 08/17/20 ondansetron HCl 8 mg PO Q8H PRN 08/15/20 08/17/20 prochlorperazine maleate 10 mg PO Q6H PRN 08/15/20 08/17/20 warfarin [Jantoven] See Rx Instructions .ROUTE .COMPLEX 08/15/20 08/17/20 Previous Rx's Medication Instructions Recorded tamsulosin [Flomax] 0.4 mg PO HS #30 cap 04/12/19 budesonide-formoterol HFA 160 2 puff INHALATION BID #10.2 gm 07/05/20 mcg-4.5 mcg/actuation aerosol inhaler doxycycline hyclate 100 mg PO BID 7 Days #14 cap 08/15/20 prednisone 60 mg PO DAILY 5 Days #15 tab 08/15/20 Results & Data (ED) Vital Signs Vital Signs - 24 hr 08/17/20 10:39 08/17/20 11:13 08/17/20 12:00 Temperature 37.1 C Temperature Source Oral Pulse Rate 115 H 103 H Pulse Rate [Apical] 98 H Pulse Rhythm Regular Pulse Rhythm [Apical] Regular Pulse Strength [Apical] Normal Respiratory Rate 36 H 26 H Respiratory Effort / Characteristics Spontaneous Accessory Muscle Use Short of Breath Splinting (from pain) Non-Labored Spontaneous Respiratory Depth Normal Normal Respiratory Pattern Tachypnea Regular Blood Pressure 183/91 H Blood Pressure [Right Arm] 129/83 Blood Pressure Mean 121 Blood Pressure Mean [Right Arm] 98 Blood Pressure Position [Right Arm] Sitting Pulse Oximetry 94 95 95 Oxygen Delivery Method Nasal Cannula Nasal Cannula Nasal Cannula Oxygen Flow Rate 4 4 4 Sepsis Recent Fever Within 48 Hours No Sepsis New/Unexplained Change in Mental Status N/A Sepsis Action Taken by Nursing Physician Notified 08/17/20 13:47 08/17/20 14:43 Temperature Temperature Source Pulse Rate Pulse Rate [Apical] 91 H 105 H Pulse Rhythm Pulse Rhythm [Apical] Regular Pulse Strength [Apical] Normal Respiratory Rate 24 22 Respiratory Effort / Characteristics Non-Labored Spontaneous Respiratory Depth Normal Normal Respiratory Pattern Regular Blood Pressure Blood Pressure [Right Arm] 114/67 135/82 Blood Pressure Mean Blood Pressure Mean [Right Arm] 82 99 Blood Pressure Position [Right Arm] Sitting Pulse Oximetry 99 95 Oxygen Delivery Method Nasal Cannula Nasal Cannula Oxygen Flow Rate 4 4 Sepsis Recent Fever Within 48 Hours Sepsis New/Unexplained Change in Mental Status Sepsis Action Taken by [facility] Medications Current Medication List: was personally reviewed by me Laboratory Data Attestation: I reviewed the patient's lab results. Result diagrams: 08/17/20 11:05 08/17/20 11:05 Lab Results 08/17/20 08/17/20 08/17/20 Range/Units 11:05 11:05 11:05 WBC 2.03 L (4.8-10.8) K/uL RBC 3.25 L (4.7-6.1) M/uL Hgb 9.9 L (14.0-18.0) g/dL Hct 31.1 L (42-52) % MCV 95.7 (80-100) fL MCH 30.5 (25-34) pg MCHC 31.8 L (32-36) g/dL RDW Std Deviation 53.7 H (36.4-46.3) fL RDW Coeff of Lele 15.4 H (11.5-14.5) % Plt Count 327 (130-400) K/uL MPV 9.3 (7.4-10.4) fL Absolute Nucleated RBC 0.03 H (0-0) K/uL Nucleated RBC % (auto) 1.6 % Neutrophils % (Manual) 62.5 % Lymphocytes % (Manual) 20.5 % Monocytes % (Manual) 8.0 % Eosinophils % (Manual) 4.5 % Basophils % (Manual) 0.9 % Myelocytes % (Man) 3.6 % Neutrophils # (Manual) 1.27 L (1.4-6.5) K/uL Total Absolute Neuts 1.27 L (1.4-6.5) K/uL Lymphocytes # (Manual) 0.42 L (1.2-3.4) K/uL Total Abs Lymphocytes 0.42 L (1.2-3.4) K/uL Monocytes # (Manual) 0.16 (0.11-0.59) K/uL Eosinophils # (Manual) 0.09 (0-0.5) K/uL Basophils # (Manual) 0.02 (0-0.2) K/uL Myelocytes # (Manual) 0.07 H (0-0) K/uL Dohle Bodies 1+ PT 38.3 H (9.0-12.0) Seconds INR 3.9 H (0.9-1.1) APTT 45.3 H* (21.0-31.0) Seconds PTT Ratio 1.6 D-Dimer 1390 H* (0-500) ug/L FEU VBG pH (7.36-7.41) VBG pCO2 (38-50) mmHg VBG pO2 mmHg VBG HCO3 mmol/L VBG O2 Saturation % VBG Base Excess mEq/L Barometric Pressure mm/Hg Sodium 136 (136-145) mmol/L Potassium 4.1 (3.5-5.1) mmol/L Chloride 101 (98-107) mmol/L Carbon Dioxide 31 (21-32) mmol/L Anion Gap 5.0 (3-11) BUN 28 H (7-18) mg/dl Creatinine 1.21 (0.6-1.4) mg/dl Est Cr Clr Drug Dosing 64.8 ml/min Est GFR ( Amer) 71.9 Est GFR (Non-Af Amer) 62.0 BUN/Creatinine Ratio 23.5 H (10-20) Glucose 116 H (70-99) mg/dl Calcium 8.8 (8.5-10.1) mg/dl Magnesium 2.1 (1.8-2.4) mg/dl Total Bilirubin 0.2 (0.2-1) mg/dl AST 19 (15-37) U/L ALT 23 (12-78) U/L Alkaline Phosphatase 78 (45-117) U/L Troponin I < 0.015 (0-0.045) ng/ml Total Protein 6.4 (6.4-8.2) gm/dl Albumin 2.3 L (3.4-5.0) gm/dl Globulin 4.1 H (2.5-4.0) gm/dl Albumin/Globulin Ratio 0.6 L (0.9-2) COVID-19 Eval Order COVID-19 PCR (Negative) Influ A Molecular Assay (Negative) Influ B Molecular Assay (Negative) 08/17/20 08/17/20 08/17/20 Range/Units 11:05 13:54 13:54 WBC (4.8-10.8) K/uL RBC (4.7-6.1) M/uL Hgb (14.0-18.0) g/dL Hct (42-52) % MCV (80-100) fL MCH (25-34) pg MCHC (32-36) g/dL RDW Std Deviation (36.4-46.3) fL RDW Coeff of Lele (11.5-14.5) % Plt Count (130-400) K/uL MPV (7.4-10.4) fL Absolute Nucleated RBC (0-0) K/uL Nucleated RBC % (auto) % Neutrophils % (Manual) % Lymphocytes % (Manual) % Monocytes % (Manual) % Eosinophils % (Manual) % Basophils % (Manual) % Myelocytes % (Man) % Neutrophils # (Manual) (1.4-6.5) K/uL Total Absolute Neuts (1.4-6.5) K/uL Lymphocytes # (Manual) (1.2-3.4) K/uL Total Abs Lymphocytes (1.2-3.4) K/uL Monocytes # (Manual) (0.11-0.59) K/uL Eosinophils # (Manual) (0-0.5) K/uL Basophils # (Manual) (0-0.2) K/uL Myelocytes # (Manual) (0-0) K/uL Dohle Bodies PT (9.0-12.0) Seconds INR (0.9-1.1) APTT (21.0-31.0) Seconds PTT Ratio D-Dimer (0-500) ug/L FEU VBG pH 7.41 (7.36-7.41) VBG pCO2 52 H (38-50) mmHg VBG pO2 35 mmHg VBG HCO3 32 mmol/L VBG O2 Saturation 63.4 % VBG Base Excess 6.2 mEq/L Barometric Pressure 731.7 mm/Hg Sodium (136-145) mmol/L Potassium (3.5-5.1) mmol/L Chloride (98-107) mmol/L Carbon Dioxide (21-32) mmol/L Anion Gap (3-11) BUN (7-18) mg/dl Creatinine (0.6-1.4) mg/dl Est Cr Clr Drug Dosing ml/min Est GFR ( Amer) Est GFR (Non-Af Amer) BUN/Creatinine Ratio (10-20) Glucose (70-99) mg/dl Calcium (8.5-10.1) mg/dl Magnesium (1.8-2.4) mg/dl Total Bilirubin (0.2-1) mg/dl AST (15-37) U/L ALT (12-78) U/L Alkaline Phosphatase (45-117) U/L Troponin I (0-0.045) ng/ml Total Protein (6.4-8.2) gm/dl Albumin (3.4-5.0) gm/dl Globulin (2.5-4.0) gm/dl Albumin/Globulin Ratio (0.9-2) COVID-19 Eval Order Covid19 Done at [facility] COVID-19 PCR (Negative) Influ A Molecular Assay Negative (Negative) Influ B Molecular Assay Negative (Negative) 08/17/20 Range/Units 13:54 WBC (4.8-10.8) K/uL RBC (4.7-6.1) M/uL Hgb (14.0-18.0) g/dL Hct (42-52) % MCV (80-100) fL MCH (25-34) pg MCHC (32-36) g/dL RDW Std Deviation (36.4-46.3) fL RDW Coeff of Lele (11.5-14.5) % Plt Count (130-400) K/uL MPV (7.4-10.4) fL Absolute Nucleated RBC (0-0) K/uL Nucleated RBC % (auto) % Neutrophils % (Manual) % Lymphocytes % (Manual) % Monocytes % (Manual) % Eosinophils % (Manual) % Basophils % (Manual) % Myelocytes % (Man) % Neutrophils # (Manual) (1.4-6.5) K/uL Total Absolute Neuts (1.4-6.5) K/uL Lymphocytes # (Manual) (1.2-3.4) K/uL Total Abs Lymphocytes (1.2-3.4) K/uL Monocytes # (Manual) (0.11-0.59) K/uL Eosinophils # (Manual) (0-0.5) K/uL Basophils # (Manual) (0-0.2) K/uL Myelocytes # (Manual) (0-0) K/uL Dohle Bodies PT (9.0-12.0) Seconds INR (0.9-1.1) APTT (21.0-31.0) Seconds PTT Ratio D-Dimer (0-500) ug/L FEU VBG pH (7.36-7.41) VBG pCO2 (38-50) mmHg VBG pO2 mmHg VBG HCO3 mmol/L VBG O2 Saturation % VBG Base Excess mEq/L Barometric Pressure mm/Hg Sodium (136-145) mmol/L Potassium (3.5-5.1) mmol/L Chloride (98-107) mmol/L Carbon Dioxide (21-32) mmol/L Anion Gap (3-11) BUN (7-18) mg/dl Creatinine (0.6-1.4) mg/dl Est Cr Clr Drug Dosing ml/min Est GFR ( Amer) Est GFR (Non-Af Amer) BUN/Creatinine Ratio (10-20) Glucose (70-99) mg/dl Calcium (8.5-10.1) mg/dl Magnesium (1.8-2.4) mg/dl Total Bilirubin (0.2-1) mg/dl AST (15-37) U/L ALT (12-78) U/L Alkaline Phosphatase (45-117) U/L Troponin I (0-0.045) ng/ml Total Protein (6.4-8.2) gm/dl Albumin (3.4-5.0) gm/dl Globulin (2.5-4.0) gm/dl Albumin/Globulin Ratio (0.9-2) COVID-19 Eval Order COVID-19 PCR NEGATIVE (Negative) Influ A Molecular Assay (Negative) Influ B Molecular Assay (Negative) Administered Medications Fentanyl Citrate (Fentanyl Citrate 100 Mcg/2 Ml Vial) 50 mcg IV Q15M PRN PRN Reason: Pain Stop: 08/31/20 10:37 Last Admin: 08/17/20 11:41 Dose: 50 mcg Documented by: [id number] Discontinued Medications Ceftriaxone Sodium (Rocephin) 1,000 mg in 50 mls @ 100 mls/hr IV NOW STA Stop: 08/17/20 14:03 Last Infusion: 08/17/20 14:54 Dose: 0 mls/hr Documented by: [id number] Admin: 08/17/20 13:55 Dose: 100 mls/hr Documented by: [id number] Sodium Chloride (Nss 1000ml) 1,000 mls @ 999 mls/hr IV .Q1H1M ONE Stop: 08/17/20 14:39 Last Admin: 08/17/20 13:55 Dose: 999 mls/hr Documented by: [id number] Ioversol (Optiray 320 125ml) 118 ml IV ONCE ONE Stop: 08/17/20 12:07 Last Admin: 08/17/20 12:06 Dose: 118 ml Documented by: [id number] Ondansetron HCl (Ondansetron Inj 2 Mg/Ml 2 Ml Vial) 4 mg IV NOW STA Stop: 08/17/20 10:39 Last Admin: 08/17/20 11:40 Dose: 4 mg Documented by: [id number] Imaging Data Radiologist's Impression: Patient: MONTY COTTON Admit Date: 08/17/20 MR#: [id number] Address1: [address] [place] [address] Acct ID:[id number] Address2: Date: 1955 [facility] Zip: [place] [address] Age: 64 Location: ED Sex: M Room/Bed: Att Phy: Diagnosis: lower back pain Minnie Phy: Shazia Marquez CRNP Service Date: 08/17/20 Fam Phy: Interpreting Phy: Edgar Josue MD Admit Phy: Ordering Phy: Jonah Rodríguez DO cc: ~ CT ANGIOGRAPHY OF THE CHEST, PULMONARY EMBOLUS PROTOCOL CLINICAL HISTORY: Shortness of breath. Evaluate for pulmonary embolus. Metastatic lung cancer. COMPARISON STUDY: Chest CT July 17, 2020. Chest radiograph performed earlier today. TECHNIQUE: Following IV administration of 118 mL of Optiray-320, helical axial images of the chest were obtained utilizing the pulmonary embolus protocol. Maximal intensity projections and sagittal and coronal reformats were viewed on an independent 3D workstation. IV contrast was administered without complication. Automated exposure control was utilized for the study. A dose lowering technique was utilized adhering to the principles of ALARA. CT DOSE: 470.52 mGy.cm FINDINGS: No pulmonary emboli are identified. There is no thoracic aortic dissection. A mildly enlarged right hilar lymph node shown on axial image 142 of 316 has mildly increased in size since prior exam of July 17, 2020. An enlarged right internal mammary chain node is similar to prior exam. Postoperative findings consistent with right upper lobectomy are noted. There are secretions within the right mainstem bronchus. Severe emphysema is noted. There is no pneumothorax or pleural effusion. Moderate consolidation within the left lower lobe has developed since prior exam. There are are multifocal airspace opacities within the right lower and right middle lobes which have developed since prior examination. No suspicious osseous lesions are noted. A right hepatic lobe metastasis measuring approximately 5.9 cm is similar to prior exam. There are prominent gastrohepatic ligament lymph nodes. IMPRESSION: 1. No pulmonary emboli identified. 2. Interval development of moderate left lower lobe consolidation and multifocal airspace opacities within the right lower and right middle lobes consistent with pneumonia. 3. Slight increase in size of a right hilar lymph node since prior exam. This favors esther spread of disease. No significant change in a pathologic right internal mammary chain lymph node and a right hepatic lobe metastasis. 4. Emphysema. ACT 112: Negative or not required by law. Electronically signed by: Edgar Josue M.D. 08/17/2020 1:13 PM Dictated: 08/17/20 1301 Transcribed: 08/17/20 1304 Patient: MONTY COTTON Admit Date: 08/17/20 MR#: [id number] Address1: [address] [place] [address] Acct ID:[id number] Address2: Date: 1955 [facility] Zip: [place] [address] Age: 64 Location: ED Sex: M Room/Bed: Att Phy: Diagnosis: lower back pain Minnie Phy: Shazia Marquez CRNP Service Date: 08/17/20 [facility] Phy: Interpreting Phy: Edgar Josue MD Admit Phy: Ordering Phy: Jonah Rodríguez, cc: ~ XR chest 1V portable CLINICAL HISTORY: Dyspnea COMPARISON STUDY: Chest radiograph August 15, 2020. Chest CT July 17, 2020. FINDINGS: A left internal jugular [id number] is in place. Cervical spine fusion is partially imaged. Mild cardiomegaly is unchanged. There is no pneumothorax. Emphysema is noted. There are postoperative findings within the right hemithorax. Old right-sided rib deformities are noted. Right lower lung opacity is slightly improved since prior exam. There is a possible small right pleural effusion. Elevation of the right hemidiaphragm is noted. IMPRESSION: 1. Mild interval improvement in right lower lung opacity. This favors pneumonia. 2. Small right pleural effusion. 3. Emphysema. ACT 112: Negative or not required by law. Electronically signed by: Edgar Josue M.D. 08/17/2020 11:00 AM Dictated: 08/17/20 105 Transcribed: 08/17/201056 Blood Pressure Blood Pressure Findings: Normal blood pressure Discharge Plan Visit Data Chief Complaint: Back Injury/Pain Stated Complaint: lower back pain ED Provider: Jonah Rodríguez Discharge Problem: Pneumonia, Chest pain, Hypoxia Patient Disposition: Being Evaluated by Hospitalist Condition: Good Forms Stand Alone Forms: My [facility] Ticies Prescriptions Prescriptions: No Action oxycodone 10 mg tablet 10 mg PO Q6H PRN (Reason: Pain) RF: 0 multivitamin Tablet 1 tab PO DAILY RF: 0 furosemide [Lasix] 20 mg tablet 40 mg PO QAM RF: 0 ibuprofen 200 mg capsule 400 mg PO Q8H PRN (Reason: Pain) RF: 0 fentanyl 25 mcg/hr patch 72 hour 1 patch transdermal [id number] RF: 0 Symbicort 160-4.5 mcg/actuation HFA aerosol inhaler 2 puff inhalation BID Qty: 10.2 RF: 5 guaifenesin [Mucinex] 600 mg Tablet Extended Release 12hr 600 mg PO BID RF: 0 tamsulosin [Flomax] 0.4 mg capsule 0.4 mg PO HS Qty: 30 RF: 0 levothyroxine 25 mcg Tablet 25 mcg PO QAM RF: 0 lisinopril 20 mg tablet 20 mg PO BID RF: 0 prednisone 5 mg tablet 5 mg PO QAM RF: 0 ondansetron HCl 8 mg tablet 8 mg PO Q8H PRN (Reason: Nausea) RF: 0 warfarin [Jantoven] 5 mg tablet See Rx Instructions .ROUTE .COMPLEX RF: 0 duloxetine 20 mg capsule,delayed release(DR/EC) 20 mg PO DAILY RF: 0 ipratropium-albuterol 0.5 mg-3 mg(2.5 mg base)/3 mL solution for nebulization 3 ml inhalation Q4H PRN (Reason: Shortness Of Breath Or Wheezing) RF: 0 albuterol sulfate [Ventolin HFA] 90 mcg/actuation HFA aerosol inhaler 2 puff inhalation Q4H PRN (Reason: Shortness Of Breath Or Wheezing) RF: 0 prochlorperazine maleate 10 mg tablet 10 mg PO Q6H PRN (Reason: Nausea) RF: 0 folic acid 1 mg tablet 1 mg PO DAILY RF: 0 doxycycline hyclate 100 mg capsule 100 mg PO BID 7 Days Qty: 14 RF: 0 prednisone 20 mg tablet 60 mg PO DAILY 5 Days Qty: 15 RF: 0 Referrals Referrals: Shazia Marquez CRNP [Primary Care Provider] - Discharge Problem: Pneumonia Qualifiers: Pneumonia type: due to unspecified organism Laterality: left Lung location: lower lobe of lung Qualified Code(s): J18.9 - Pneumonia, unspecified organism Chest pain Qualifiers: Chest pain type: unspecified Qualified Code(s): R07.9 - Chest pain, unspecified
--- NOTE | 2020-08-17 11:01 | XRay Report ---
XR chest 1V portable CLINICAL HISTORY: Dyspnea COMPARISON STUDY: Chest radiograph August 15, 2020. Chest CT July 17, 2020. FINDINGS: A left internal jugular [id number] is in place. Cervical spine fusion is partially image d. Mild cardiomegaly is unchanged. There is no pneumothorax. Emphysema is noted. There are postoperat haylie findings within the right hemithorax. Old right-sided rib deformities are noted. Right lower lung opacity is slightly improved since prior exam. There is a possible small right pleural effusion. Anne vation of the right hemidiaphragm is noted. IMPRESSION: 1. Mild interval improvement in right lower lung opacity. This favors pneumonia. 2. Small right pleural effusion. 3. Emphysema. ACT 112: Negative or not required by law. Electronically signed by: Edgar Josue M.D. 08/17/2020 11:00 AM
[2020-08-17 11:15] LABS: Hematocrit (blood only) 31.1 % (42-52); Hemoglobin 9.9 g/dL (14.0-18.0); Mean Corpuscular Hemoglobin 30.5 pg (25-34); Mean Corpuscular Hgb Conc 31.8 g/dL (32-36); Mean Corpuscular Volume 95.7 fL (80-100); Mean Platelet Volume 9.3 fL (7.4-10.4); Nucleated RBC # (auto) 0.03 K/uL (0-0); Nucleated RBC % (auto) 1.6 %; Platelet Count 327 K/uL (130-400); RDW Coefficient of Variation 15.4 % (11.5-14.5); RDW Standard Deviation 53.7 fL (36.4-46.3); Red Blood Count 3.25 M/uL (4.7-6.1); White Blood Count 2.03 K/uL (4.8-10.8)
[2020-08-17 11:18] LABS: Base Excess VBG 6.2 mEq/L; Oxygen Saturation VBG 63.4 %; pH VBG 7.41 (7.36-7.41)
[2020-08-17 11:32] LABS: Alanine Aminotransferase 23 U/L (12-78); Albumin Level 2.3 gm/dl (3.4-5.0); Aspartate Aminotransferase 19 U/L (15-37); BUN Creatinine Ratio 23.5 (10-20); Blood Urea Nitrogen 28 mg/dl (7-18); Calcium 8.8 mg/dl (8.5-10.1); Carbon Dioxide 31 mmol/L (21-32); Chloride 101 mmol/L (98-107); Creatinine Clr Calc Pharmacy 64.8 ml/min; Est GFR (African American) 71.9; Glucose 116 mg/dl (70-99); Magnesium 2.1 mg/dl (1.8-2.4); Potassium 4.1 mmol/L (3.5-5.1); Sodium 136 mmol/L (136-145)
[2020-08-17 11:37] LABS: Albumin Globulin Ratio 0.6 (0.9-2); Alkaline Phosphatase 78 U/L (45-117); Bilirubin,Total 0.2 mg/dl (0.2-1); Globulin 4.1 gm/dl (2.5-4.0); INR 3.9 (0.9-1.1); Partial Thromboplastin Ratio 1.6; Prothrombin Time 38.3 Seconds (9.0-12.0); Total Protein 6.4 gm/dl (6.4-8.2); Troponin I < 0.015 ng/ml (0-0.045)
[2020-08-17 11:55] LABS: D Dimer 1390 ug/L FEU (0-500); Partial Thromboplastin Time 45.3 Seconds (21.0-31.0)
[2020-08-17 11:59] LABS: ALC (manual) 0.42 K/uL (1.2-3.4); ANC (manual) 1.27 K/uL (1.4-6.5); Basophils # (manual) 0.02 K/uL (0-0.2); Basophils % (manual) 0.9 %; Dohle Bodies 1+; Eosinophils # (manual) 0.09 K/uL (0-0.5); Eosinophils % (manual) 4.5 %; Lymphocytes # (manual) 0.42 K/uL (1.2-3.4); Lymphocytes % (manual) 20.5 %; Monocytes # (manual) 0.16 K/uL (0.11-0.59); Myelocytes # (manual) 0.07 K/uL (0-0); Myelocytes % (manual) 3.6 %; Neutrophils # (manual) 1.27 K/uL (1.4-6.5); Neutrophils % (manual) 62.5 %
[2020-08-17] MEDS ORDERED: OPTIRAY 320 125ml IV ONE (12:06)
--- NOTE | 2020-08-17 13:14 | CT Scan Report ---
CT ANGIOGRAPHY OF THE CHEST, PULMONARY EMBOLUS PROTOCOL CLINICAL HISTORY: Shortness of breath. Evaluate for pulmonary embolus. Metastatic lung cancer. COMPARISON STUDY: Chest CT July 17, 2020. Chest radiograph performed earlier today. TECHNIQUE: Following IV administration of 118 mL of Optiray-320, helical axial images of the chest we re obtained utilizing the pulmonary embolus protocol. Maximal intensity projections and sagittal and coronal reformats were viewed on an independent 3D workstation. IV contrast was administered withou t complication. Automated exposure control was utilized for the study. A dose lowering technique wa s utilized adhering to the principles of ALARA. CT DOSE: 470.52 mGy.cm FINDINGS: No pulmonary emboli are identified. There is no thoracic aortic dissection. A mildly enlar ged right hilar lymph node shown on axial image 142 of 316 has mildly increased in size since prior e xam of July 17, 2020. An enlarged right internal mammary chain node is similar to prior exam. Pos toperative findings consistent with right upper lobectomy are noted. There are secretions within the right mainstem bronchus. Severe emphysema is noted. There is no pneumothorax or pleural effusion. Mod erate consolidation within the left lower lobe has developed since prior exam. There are are multifoc al airspace opacities within the right lower and right middle lobes which have developed since prior examination. No suspicious osseous lesions are noted. A right hepatic lobe metastasis measuring appro ximately 5.9 cm is similar to prior exam. There are prominent gastrohepatic ligament lymph nodes. IMPRESSION: 1. No pulmonary emboli identified. 2. Interval development of moderate left lower lobe consolidation and multifocal airspace opacities w ithin the right lower and right middle lobes consistent with pneumonia. 3. Slight increase in size of a right hilar lymph node since prior exam. This favors esther spread of disease. No significant change in a pathologic right internal mammary chain lymph node and a right he patic lobe metastasis. 4. Emphysema. ACT 112: Negative or not required by law. Electronically signed by: Edgar Josue M.D. 08/17/2020 1:13 PM
[2020-08-17] MEDS ORDERED: cefTRIAXone SODIUM 1,000 MG/50 ML BAG IV STA (13:34)
[2020-08-17] MEDS ORDERED: SODIUM CHLORIDE 0.9% 1000ML 1,000 ML IV ONE (13:39)
--- NOTE | 2020-08-17 14:03 | Electrocardiogram Report ---
Test Reason : Blood Pressure : / mmHG Vent. Rate : 106 BPM Atrial Rate : 106 BPM P-R Int : 142 ms QRS Dur : 088 ms QT Int : 314 ms P-R-T Axes : 058 038 058 degrees QTc Int : 417 ms Sinus tachycardia Otherwise normal ECG When compared with ECG of 15-AUG-2020 22:10, No significant change was found Confirmed by Jonah Hall ([id number]) on 08/17/2020 2:03:18 PM Referred By: REFERRED SELF Confirmed By:Jonah Hall
[2020-08-17 14:25] LABS: Influenza A virus by PCR Negative (Negative); Influenza B virus by PCR Negative (Negative)
[2020-08-17] MEDS ORDERED: ALBUT/IPRATROP 3MG/0.5MG NEB 3 ML VIAL NEB ONE (15:57)
[2020-08-17] MEDS ORDERED: AZITHROMYCIN 500 MG in DEXTROSE 5% 250 ML IV ONE (15:58)
[2020-08-17] MEDS ORDERED: methylPREDNISolone 125 MG/2 ML VIAL IV STA (15:59)
[2020-08-17] MEDS ORDERED: IBUPROFEN 400 MG PO PRN (15:59)
--- NOTE | 2020-08-17 17:08 | Medical Student H&P ---
Date of Service August 17, 2020 Assessment & Plan (1) Pneumonia: Mr. 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 Pneumonia: - CXR: Mild interval improvement in right lower lung opacity favoring pneumonia. Small right pleural effusion. - CTA: no PE, moderate left lower lobe consolidation and multifocal airspace opacities within the right lower and right middle lobes consistent with pneumonia - given azithromycin 500mg IV today, 250mg IV starting tomorrow - ceftriaxone received in ED, will continue COPD exacerbation: - started methylprednisolone 60mg daily. H2 henry for GI prophyalxis - hold home prednisone (5mg chronically). Followed by Dr. Boateng as an outpatient. - given azithromycin 500mg IV today, 250mg IV starting tomorrow - O2 supp PRN (home O2 requirement 3-4L at baseline), maintain SpO2 88-92% - albuterol and duonebs scheduled and PRN - continue home inhaler regimen - bipap on stand by if worsening Lung CA with mets, pain mgmt: - fentanyl patch 25mcg/hr q72h, started 08/17 - oxycodone 10mg PO q6H PRN - hold home ibuprofen - followed by [facility] oncology--last chemo was about 3 weeks ago. Scheduled to have chemo again next wednesday. Hx of PE: - INR 3.9. Hold tonight's dose of coumadin. Home - continue home warfarin regimen Home dosing 15mg WF, 10mg other days. Followed by [facility] anticoag clinic. - INR goal 2.5-3.5 MDD: - continue home duloxetine HTN: - continue home furosemide and lisinopril Hypothyroidism: - continue home levothyroxine BPH: - continue home tamsulosin Laterality: left Lung location: lower lobe of lung Pneumonia type: due to unspecified organism Qualified Code(s): J18.9 - Pneumonia, unspecified organism History of Present Illness Chief Complaint: Difficulty breathing, back pain Primary Care Provider: HAY Draper Mr. 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 He had recently been to the ED for PNA on 08/15, refused admission, received and had been taking doxycycline. This morning he woke up with sharp pain and continued difficulty breathing, which was not improved with 4L/min O2 at home, and did not improve with nebulizer treatment at home. Per EMS, he de-saturated to 70s upon their arrival. In the ED, stabilized initially using 10L NC, received 1does of ceftriaxone. CXR demonstrated increased concern for bilat PNA, confirmed on CTA. Allergies Allergy/AdvReac Type Severity Reaction Status Date / Time pirbuterol Allergy Severe maxair - Verified 08/17/20 10:55 "CHEST TIGHTENS" amoxicillin [From Augmentin] Allergy Mild Rash Verified 08/17/20 10:55 clavulanic acid Allergy Mild Rash Verified 08/17/20 10:55 [From Augmentin] Home Medications Home Medications Medication Instructions Recorded Confirmed Type guaifenesin [Mucinex] 600 mg PO BID 02/21/19 08/17/20 History tamsulosin [Flomax] 0.4 mg PO HS #30 cap 04/12/19 08/17/20 Rx levothyroxine 25 mcg PO QAM 07/27/19 08/17/20 History oxycodone 10 mg tablet 10 mg PO Q6H PRN 03/12/20 08/17/20 History multivitamin 1 tab PO DAILY 04/16/20 08/17/20 History prednisone 5 mg tablet 5 mg PO QAM tab 04/23/20 08/17/20 History furosemide 20 mg tablet 40 mg PO QAM 04/30/20 08/17/20 History budesonide-formoterol HFA 160 2 puff INHALATION BID #10.2 gm 07/05/20 08/17/20 Rx mcg-4.5 mcg/actuation aerosol inhaler lisinopril 20 mg PO BID 07/17/20 08/17/20 History ibuprofen 200 mg capsule 400 mg PO Q8H PRN cap 08/06/20 08/17/20 History fentanyl 25 mcg/hr transdermal 1 patch TRANSDERMAL [id number] 08/12/20 08/17/20 History patch albuterol sulfate [Ventolin HFA] 2 puff INHALATION Q4H PRN 08/15/20 08/17/20 History doxycycline hyclate 100 mg PO BID 7 Days #14 cap 08/15/20 08/17/20 Rx duloxetine 20 mg PO DAILY 08/15/20 08/17/20 History folic acid 1 mg PO DAILY 08/15/20 08/17/20 History ipratropium-albuterol 3 ml INHALATION Q4H PRN 08/15/20 08/17/20 History ondansetron HCl 8 mg PO Q8H PRN 08/15/20 08/17/20 History prednisone 60 mg PO DAILY 5 Days #15 tab 08/15/20 08/17/20 Rx prochlorperazine maleate 10 mg PO Q6H PRN 08/15/20 08/17/20 History warfarin [Jantoven] See Rx Instructions .ROUTE .COMPLEX 08/15/20 08/17/20 History Past Med/Surg History Medical History Anticoagulated on Coumadin Chronic neck pain COPD (chronic obstructive pulmonary disease) severe, 3L O2 continuous-- prednisone 10mg daily* (hx recurrent exacerbations) Emphysema lung History of acute respiratory failure History of anxiety History of Legionnaire's disease 2015 History of lung cancer S/P lobectomy (03/2019): MAC 4, Grade 1 view. JESSICA. Hypertension Liver metastasis On home oxygen therapy 3L CONT. Osteoarthritis Pulmonary embolism lower left lobe dx'd Fall 2018, (possibly r/t lung surgery or cancer)- on cou madin Surgical History H/O prostate biopsy History of neck surgery CERVICAL FUSION ([facility]) History of surgery RT VAT W/ RT UPPER LOBECTOMY + MEDIASTINAL LYMPHADENECTOMY: 04/05/19: Grade view 1, MAC#4 at [facility] History of tooth extraction S/P bronchoscopy with biopsy 03/02/19 EBUS with HEYDI Avalos with 8.5 ETT, gr 1 view with MAC 3 Family History Sister Family history of cancer lung cancer with mets to the brain COPD (chronic obstructive pulmonary disease) Cancer Mother COPD (chronic obstructive pulmonary disease) Heart disease Diabetes Other No family history of adverse response to anesthesia Social History Smoking Status: Former smoker Tobacco Type: Cigarettes Cigarettes Per Day: 1.5-2 PPD; Second Hand Exposure: No; Do You Dip or Chew Tobacco: No; Hx Alcohol Use: No Hx Substance Use: No Preferred Language: Taiwanese Communication Ability: Effective Visual Impairment: No Limitations Emergency Room Clinician Required: No Beliefs That Will Affect Care: None Current Living Situation: Spouse Current Living Situation Comment: [facility] Feels Safe at Home: Yes Safety Concerns: Feels Safe At This Time Assistive Devices: Denture - Upper and Denture - Lower Review of Systems All systems reviewed & are unremarkable except as noted in HPI & below + dyspnea and + sputum production + back pain no rash Physical Exam Constitutional: + acute distress Eyes: PERRL, conjunctivae normal, anicteric sclerae Respiratory: + labored breathing, + uses accessory muscles, + tachypneic, + prolonged expiratory phase, + audible wheezes and + grunting; + not able to speak in complete sentence Auscultation: + crackles and + wheezes Cardiovascular: Rate/Rhythm: regular rhythm and + tachycardic Heart Sounds: normal S1 and normal S2; no gallop, no murmur and no cardiac rub Gastrointestinal (Abdomen): normal bowel sounds, soft, nontender, no hepatosplenomegaly Musculoskeletal: not tender to palpation at focal area of back pain Skin: no rashes Psychiatric: Orientation: alert and oriented x 3 Results & Data ([facility]) Vital Signs (Past 12 Hours) Vital Signs Temp Pulse Pulse Resp BP BP Pulse Ox 08/17/20 16:12 98 H 24 97 08/17/20 14:43 105 H 22 135/82 95 08/17/20 13:47 91 H 24 114/67 99 08/17/20 12:00 98 H 26 H 129/83 95 08/17/20 11:13 103 H 95 08/17/20 10:39 37.1 C 115 H 36 H 183/91 H 94 Laboratory Results 08/17/20 08/17/20 08/17/20 Range/Units 13:54 13:54 13:54 WBC (4.8-10.8) K/uL RBC (4.7-6.1) M/uL Hgb (14.0-18.0) g/dL Hct (42-52) % MCV (80-100) fL MCH (25-34) pg MCHC (32-36) g/dL RDW Std Deviation (36.4-46.3) fL RDW Coeff of Lele (11.5-14.5) % Plt Count (130-400) K/uL MPV (7.4-10.4) fL Absolute Nucleated RBC (0-0) K/uL Nucleated RBC % (auto) % Neutrophils % (Manual) % Lymphocytes % (Manual) % Monocytes % (Manual) % Eosinophils % (Manual) % Basophils % (Manual) % Myelocytes % (Man) % Neutrophils # (Manual) (1.4-6.5) K/uL Total Absolute Neuts (1.4-6.5) K/uL Lymphocytes # (Manual) (1.2-3.4) K/uL Total Abs Lymphocytes (1.2-3.4) K/uL Monocytes # (Manual) (0.11-0.59) K/uL Eosinophils # (Manual) (0-0.5) K/uL Basophils # (Manual) (0-0.2) K/uL Myelocytes # (Manual) (0-0) K/uL Dohle Bodies PT (9.0-12.0) Seconds INR (0.9-1.1) APTT (21.0-31.0) Seconds PTT Ratio D-Dimer (0-500) ug/L FEU VBG pH (7.36-7.41) VBG pCO2 (38-50) mmHg VBG pO2 mmHg VBG HCO3 mmol/L VBG O2 Saturation % VBG Base Excess mEq/L Barometric Pressure mm/Hg Sodium (136-145) mmol/L Potassium (3.5-5.1) mmol/L Chloride (98-107) mmol/L Carbon Dioxide (21-32) mmol/L Anion Gap (3-11) BUN (7-18) mg/dl Creatinine (0.6-1.4) mg/dl Est Cr Clr Drug Dosing ml/min Est GFR ( Amer) Est GFR (Non-Af Amer) BUN/Creatinine Ratio (10-20) Glucose (70-99) mg/dl Calcium (8.5-10.1) mg/dl Magnesium (1.8-2.4) mg/dl Total Bilirubin (0.2-1) mg/dl AST (15-37) U/L ALT (12-78) U/L Alkaline Phosphatase (45-117) U/L Troponin I (0-0.045) ng/ml Total Protein (6.4-8.2) gm/dl Albumin (3.4-5.0) gm/dl Globulin (2.5-4.0) gm/dl Albumin/Globulin Ratio (0.9-2) COVID-19 Eval Order Covid19 Done at [facility] COVID-19 PCR NEGATIVE (Negative) Influ A Molecular Assay Negative (Negative) Influ B Molecular Assay Negative (Negative) 08/17/20 08/17/20 08/17/20 Range/Units 11:05 11:05 11:05 WBC (4.8-10.8) K/uL RBC (4.7-6.1) M/uL Hgb (14.0-18.0) g/dL Hct (42-52) % MCV (80-100) fL MCH (25-34) pg MCHC (32-36) g/dL RDW Std Deviation (36.4-46.3) fL RDW Coeff of Lele (11.5-14.5) % Plt Count (130-400) K/uL MPV (7.4-10.4) fL Absolute Nucleated RBC (0-0) K/uL Nucleated RBC % (auto) % Neutrophils % (Manual) % Lymphocytes % (Manual) % Monocytes % (Manual) % Eosinophils % (Manual) % Basophils % (Manual) % Myelocytes % (Man) % Neutrophils # (Manual) (1.4-6.5) K/uL Total Absolute Neuts (1.4-6.5) K/uL Lymphocytes # (Manual) (1.2-3.4) K/uL Total Abs Lymphocytes (1.2-3.4) K/uL Monocytes # (Manual) (0.11-0.59) K/uL Eosinophils # (Manual) (0-0.5) K/uL Basophils # (Manual) (0-0.2) K/uL Myelocytes # (Manual) (0-0) K/uL Dohle Bodies PT 38.3 H (9.0-12.0) Seconds INR 3.9 H (0.9-1.1) APTT 45.3 H* (21.0-31.0) Seconds PTT Ratio 1.6 D-Dimer 1390 H* (0-500) ug/L FEU VBG pH 7.41 (7.36-7.41) VBG pCO2 52 H (38-50) mmHg VBG pO2 35 mmHg VBG HCO3 32 mmol/L VBG O2 Saturation 63.4 % VBG Base Excess 6.2 mEq/L Barometric Pressure 731.7 mm/Hg Sodium 136 (136-145) mmol/L Potassium 4.1 (3.5-5.1) mmol/L Chloride 101 (98-107) mmol/L Carbon Dioxide 31 (21-32) mmol/L Anion Gap 5.0 (3-11) BUN 28 H (7-18) mg/dl Creatinine 1.21 (0.6-1.4) mg/dl Est Cr Clr Drug Dosing 64.8 ml/min Est GFR ( Amer) 71.9 Est GFR (Non-Af Amer) 62.0 BUN/Creatinine Ratio 23.5 H (10-20) Glucose 116 H (70-99) mg/dl Calcium 8.8 (8.5-10.1) mg/dl Magnesium 2.1 (1.8-2.4) mg/dl Total Bilirubin 0.2 (0.2-1) mg/dl AST 19 (15-37) U/L ALT 23 (12-78) U/L Alkaline Phosphatase 78 (45-117) U/L Troponin I < 0.015 (0-0.045) ng/ml Total Protein 6.4 (6.4-8.2) gm/dl Albumin 2.3 L (3.4-5.0) gm/dl Globulin 4.1 H (2.5-4.0) gm/dl Albumin/Globulin Ratio 0.6 L (0.9-2) COVID-19 Eval Order COVID-19 PCR (Negative) Influ A Molecular Assay (Negative) Influ B Molecular Assay (Negative) 08/17/20 Range/Units 11:05 WBC 2.03 L (4.8-10.8) K/uL RBC 3.25 L (4.7-6.1) M/uL Hgb 9.9 L (14.0-18.0) g/dL Hct 31.1 L (42-52) % MCV 95.7 (80-100) fL MCH 30.5 (25-34) pg MCHC 31.8 L (32-36) g/dL RDW Std Deviation 53.7 H (36.4-46.3) fL RDW Coeff of Lele 15.4 H (11.5-14.5) % Plt Count 327 (130-400) K/uL MPV 9.3 (7.4-10.4) fL Absolute Nucleated RBC 0.03 H (0-0) K/uL Nucleated RBC % (auto) 1.6 % Neutrophils % (Manual) 62.5 % Lymphocytes % (Manual) 20.5 % Monocytes % (Manual) 8.0 % Eosinophils % (Manual) 4.5 % Basophils % (Manual) 0.9 % Myelocytes % (Man) 3.6 % Neutrophils # (Manual) 1.27 L (1.4-6.5) K/uL Total Absolute Neuts 1.27 L (1.4-6.5) K/uL Lymphocytes # (Manual) 0.42 L (1.2-3.4) K/uL Total Abs Lymphocytes 0.42 L (1.2-3.4) K/uL Monocytes # (Manual) 0.16 (0.11-0.59) K/uL Eosinophils # (Manual) 0.09 (0-0.5) K/uL Basophils # (Manual) 0.02 (0-0.2) K/uL Myelocytes # (Manual) 0.07 H (0-0) K/uL Dohle Bodies 1+ PT (9.0-12.0) Seconds INR (0.9-1.1) APTT (21.0-31.0) Seconds PTT Ratio D-Dimer (0-500) ug/L FEU VBG pH (7.36-7.41) VBG pCO2 (38-50) mmHg VBG pO2 mmHg VBG HCO3 mmol/L VBG O2 Saturation % VBG Base Excess mEq/L Barometric Pressure mm/Hg Sodium (136-145) mmol/L Potassium (3.5-5.1) mmol/L Chloride (98-107) mmol/L Carbon Dioxide (21-32) mmol/L Anion Gap (3-11) BUN (7-18) mg/dl Creatinine (0.6-1.4) mg/dl Est Cr Clr Drug Dosing ml/min Est GFR ( Amer) Est GFR (Non-Af Amer) BUN/Creatinine Ratio (10-20) Glucose (70-99) mg/dl Calcium (8.5-10.1) mg/dl Magnesium (1.8-2.4) mg/dl Total Bilirubin (0.2-1) mg/dl AST (15-37) U/L ALT (12-78) U/L Alkaline Phosphatase (45-117) U/L Troponin I (0-0.045) ng/ml Total Protein (6.4-8.2) gm/dl Albumin (3.4-5.0) gm/dl Globulin (2.5-4.0) gm/dl Albumin/Globulin Ratio (0.9-2) COVID-19 Eval Order COVID-19 PCR (Negative) Influ A Molecular Assay (Negative) Influ B Molecular Assay (Negative) Medications Administered Current Inpatient Medications Acetaminophen (Acetaminophen 325 Mg Tab) 650 mg PO Q4H PRN PRN Reason: pain/fever Stop: 09/16/20 18:08 Al Hydrox/Mg Hydrox/Simethicone (Aluminum/Magnesium Susp 30 Ml Udc) 30 ml PO Q6H PRN PRN Reason: Dyspepsia Stop: 09/16/20 18:08 Albuterol (Albuterol Hfa 8 Gm Inhaler) 2 puffs INH Q4H PRN PRN Reason: Shortness Of Breath Or Wheezing Stop: 09/16/20 18:08 Albuterol (Albut/Ipratrop 3mg/0.5mg Neb 3 Ml Vial) 3 ml INH Q4H PRN PRN Reason: Shortness Of Breath Or Wheezing Stop: 09/16/20 18:08 Budesonide/Formoterol Fumarate (Budesonide/Formoterol Fumarate 160/4.5 60 Puffs/Inhaler) 2 puffs INH BID AMARI Stop: 09/16/20 20:59 Duloxetine HCl (Duloxetine Hcl 20 Mg Cap) 20 mg PO DAILY AMARI Stop: 09/17/20 08:59 Fentanyl (Fentanyl 25 Mcg/Hr Tdsy) mcg TD CQ72HR AMARI Stop: 08/31/20 18:08 Folic Acid (Folic Acid 1 Mg Tab) 1 mg PO DAILY AMARI Stop: 09/17/20 08:59 Furosemide (Furosemide 40 Mg Tab) 40 mg PO QAM AMARI Stop: 09/17/20 08:59 Guaifenesin (Guaifenesin 600 Mg Tabcr) 600 mg PO BID AMARI Stop: 09/16/20 20:59 Famotidine 20 mg/ Syringe 5 mls @ 2.5 mls/min IV BID AMARI Stop: 09/16/20 20:59 Azithromycin 250 mg/ Dextrose 252.5 mls @ 125 mls/hr IV DAILY AMARI Stop: 08/25/20 08:59 Levothyroxine Sodium (Levothyroxine Sodium 25 Mcg Tablet) 25 mcg PO QAM [facility] Stop: 09/17/20 08:59 Lisinopril (Lisinopril 20 Mg Tab) 20 mg PO BID [facility] Stop: 09/16/20 20:59 Miscellaneous (Fentanyl Patch Remove & Waste) 1 ea N/A Q3D AMARI Stop: 09/16/20 18:08 Miscellaneous (Check Fentanyl Patch Placement) 1 ea N/A QS [facility] Stop: 09/16/20 18:08 Non-Formulary Medication (Ibuprofen) 400 mg PO Q8H PRN PRN Reason: Pain Ondansetron HCl (Ondansetron Inj 2 Mg/Ml 2 Ml Vial) 4 mg IV Q6H PRN PRN Reason: Nausea Stop: 09/16/20 18:08 Oxycodone HCl (Oxycodone Hcl Ir 5 Mg Tab (Immediate Release)) 10 mg PO Q6H PRN PRN Reason: Pain Stop: 08/31/20 15:58 Polyethylene Glycol (Polyethylene (Miralax) 17 Gm Pack) 17 gm PO DAILY PRN PRN Reason: Constipation Stop: 09/16/20 18:08 Prochlorperazine (Prochlorperazine Maleate 10 Mg Tab) 10 mg PO Q6H PRN PRN Reason: Nausea Stop: 09/16/20 18:08 Tamsulosin HCl (Tamsulosin Hcl 0.4 Mg Cap) 0.4 mg PO HS [facility] Stop: 09/16/20 20:59 Warfarin Sodium (Warfarin Sod 5 Mg Tab) 0 mg PO .COMPLEX AMARI Stop: 09/16/20 18:08 Code Status & VTE Plan Code Status Full Code VTE Prophylaxis Plan Reason for no VTE drug order: Treatment not indicated (continue Warfarin) Supervising Attestation Patient seen and examined independently of PGY-2 Dr. Jack and MS3 Ananth Barbour. Agree with history, exam findings, assessment and plan of care as outlined. In brief, Mr. Chin is a 64 year old male with history of metastatic lung cancer, COPD, PE, and BPH admitted with worsening pneumonia and dyspnea after starting outpatient treatment for pneumonia. Also noted to have some thoracic back pain on the left. ED course reviewed. On exam, he is tachycardic and tachypneic. He is getting a nebulizer treatment. Heart with regular rhythm. No murmur. No peripheral edema. Lungs with fair air movement, crackles at the bases and end expiratory wheezes. No respiratory distress, but speaking in short sentences. Back pain is reproducible on the left with palpation around the T7 area. 1. Pneumonia. Worsened on outpatient treatment. Continue ceftriaxone and add azithro. 2. COPD exacerbation. Methylprednisolone, duonebs and albuterol scheduled and PRN. Pepcid for GI prophylaxis with methylpred. Azithro as above. 3. Metastatic lung cancer and cancer related pain. Continue with home fentanyl patch, oxycodone. Followed by Dr. Tinoco as an outpatient. Last chemo was 3 weeks ago and is scheduled to have another round of chem on Wednesday. 4. Hx of PE, anticoagulated with coumadin. INR 3.9 on admission. Holding tonights dose and will then restart home regimen (15mg WF and 10mg other days). Will need to keep an eye on INR with the antibiotics. Other chronic issues stable and home medications continued. Resident Activity Tracking Resident Involvement: Resident Care Provided Care Provided: Adult Hospital Medicine
[2020-08-17] MEDS ORDERED: ALBUTEROL HFA 8 GM INHALER INH PRN (18:09)
[2020-08-17] MEDS ORDERED: PROCHLORPERAZINE MALEATE 10 MG TAB PO PRN (18:09)
[2020-08-17] MEDS ORDERED: ALUMINUM/MAGNESIUM SUSP 30 ML UDC PO PRN (18:09)
[2020-08-17] MEDS ORDERED: ONDANSETRON INJ 2 MG/ML 2 ML VIAL IV PRN (18:09)
[2020-08-17] MEDS ORDERED: POLYETHYLENE (MIRALAX) 17 GM PACK PO PRN (18:09)
[2020-08-17] MEDS ORDERED: IBUPROFEN 200 MG TAB PO PRN (18:29)
[2020-08-17] MEDS: CHECK fentaNYL PATCH PLACEMENT SCH ×2 (18:53→23:46)
[2020-08-17] MEDS: ACETAMINOPHEN 325 MG TAB PO PRN (20:26)
[2020-08-17] MEDS: FAMOTIDINE 20 MG in SYRINGE 3 ML IV SCH (20:26)
[2020-08-17] MEDS: guaiFENesin 600 MG TABCR PO SCH (20:27)
[2020-08-17] MEDS: TAMSULOSIN HCL 0.4 MG CAP PO SCH (20:27)
[2020-08-17] MEDS: lisinopril 20 MG TAB PO SCH (20:27)
[2020-08-17] MEDS: oxyCODONE HCL IR 5 MG TAB (IMMEDIATE RELEASE) PO PRN (21:22)
[2020-08-17] MEDS: fentaNYL 25 MCG/HR TDSY TD SCH (21:23)
[2020-08-17 23:46] LABS: Appearance Urine Clear (Clear); Bacteria Urine Automated Negative (Negative); Bilirubin Urine Negative (Negative); Blood Urine Negative (Negative); Color Urine Yellow; Glucose Urine UA Negative (Negative); Ketones Urine Negative (Negative); Leukocyte Esterase Urine Negative (Negative); Nitrite Urine Negative (Negative); Protein Urine 2+ (Negative); Specific Gravity Urine > 1.045 (1.000-1.030); Urobilinogen Urine Negative (Negative); pH Urine 5.5 (4.5-7.5)
[2020-08-18] MEDS ORDERED: CHECK fentaNYL PATCH PLACEMENT SCH
[2020-08-18] MEDS: ACETAMINOPHEN 325 MG TAB PO PRN ×2 (00:28→21:08)
[2020-08-18] MEDS: HEPARIN 100 UNIT/ML 5ML FLUSH FLUSH PRN (05:55)
[2020-08-18 06:20] LABS: Hematocrit (blood only) 29.3 % (42-52); Hemoglobin 8.9 g/dL (14.0-18.0); Mean Corpuscular Hemoglobin 29.3 pg (25-34); Mean Corpuscular Hgb Conc 30.4 g/dL (32-36); Mean Corpuscular Volume 96.4 fL (80-100); Mean Platelet Volume 9.5 fL (7.4-10.4); Nucleated RBC # (auto) 0.06 K/uL (0-0); Nucleated RBC % (auto) 0.7 %; Platelet Count 357 K/uL (130-400); RDW Coefficient of Variation 15.5 % (11.5-14.5); RDW Standard Deviation 54.6 fL (36.4-46.3); Red Blood Count 3.04 M/uL (4.7-6.1); White Blood Count 8.67 K/uL (4.8-10.8)
[2020-08-18] MEDS: LEVOTHYROXINE SODIUM 25 MCG TABLET PO SCH (06:36)
[2020-08-18 06:40] LABS: INR 3.6 (0.9-1.1); Prothrombin Time 35.8 Seconds (9.0-12.0)
[2020-08-18 06:46] LABS: Basophils # (auto) 0.01 K/uL (0-0.2); Basophils % (auto) 0.1 %; Dohle Bodies 2+; Immature Granulocytes # (auto) 0.13 K/uL (0.00-0.02); Immature Granulocytes % (auto) 1.5 %; Lymphocytes # (auto) 0.72 K/uL (1.2-3.4); Lymphocytes % (auto) 8.3 %; Monocytes # (auto) 0.99 K/uL (0.11-0.59); Monocytes % (auto) 11.4 %; Neutrophils # (auto) 6.82 K/uL (1.4-6.5); Neutrophils % (auto) 78.7 %; Rouleaux 1+
[2020-08-18 06:58] LABS: BUN Creatinine Ratio 24.3 (10-20); Calcium 8.2 mg/dl (8.5-10.1); Creatinine Clr Calc Pharmacy 61.1 ml/min; Est GFR (African American) 76.4; Est GFR (Non-African American) 65.9; Magnesium 2.4 mg/dl (1.8-2.4); Phosphorus 3.3 mg/dl (2.5-4.9); Potassium 4.9 mmol/L (3.5-5.1)
[2020-08-18] MEDS: ALBUT/IPRATROP 3MG/0.5MG NEB 3 ML VIAL INH PRN ×3 (07:10→21:17)
[2020-08-18] MEDS: FLUTICASONE/VILANTEROL 100/25MCG 14 PUFFS/INHALER INH SCH (09:01)
[2020-08-18] MEDS: DULoxetine HCL 20 MG CAP PO SCH (09:02)
[2020-08-18] MEDS: guaiFENesin 600 MG TABCR PO SCH ×2 (09:02→21:07)
[2020-08-18] MEDS: CHECK fentaNYL PATCH PLACEMENT SCH ×2 (09:02→16:04)
[2020-08-18] MEDS: FUROSEMIDE 40 MG TAB PO SCH (09:02)
[2020-08-18] MEDS: FOLIC ACID 1 MG TAB PO SCH (09:02)
[2020-08-18] MEDS: FAMOTIDINE 20 MG in SYRINGE 3 ML IV SCH ×2 (09:03→21:08)
[2020-08-18] MEDS: lisinopril 20 MG TAB PO SCH ×2 (09:03→21:07)
[2020-08-18] MEDS: cefTRIAXone SODIUM 2,000 MG in DEXTROSE 5% 50 ML IV SCH (09:03)
[2020-08-18] MEDS: oxyCODONE HCL IR 5 MG TAB (IMMEDIATE RELEASE) PO PRN ×2 (09:19→18:31)
--- NOTE | 2020-08-18 12:41 | Hospitalist Progress Note ---
Date of Service August 18, 2020 Assessment & Plan (1) Pneumonia: Mr. 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 Pneumonia: - CXR: Mild interval improvement in right lower lung opacity favoring pneumonia. Small right pleural effusion. - CTA: no PE, moderate left lower lobe consolidation and multifocal airspace opacities within the right lower and right middle lobes consistent with pneumonia - given azithromycin 500mg IV on admit, 250mg IV daily after - continue ceftraixone daily COPD exacerbation: - continue methylprednisolone 60mg daily; plan to continue for 5 days with then taper by 10mg every 5 days - hold home prednisone - azithromycin 250mg IV daily - ceftriaxone received in ED, will continue - O2 supp PRN (home O2 requirement 3-4L at baseline), maintain SpO2 88-92% - continue home inhaler regimen - bipap on stand by if worsening Lung CA, pain mgmt: - fentanyl patch 25mcg/hr q72h, started 08/17 - oxycodone 10mg PO q6H PRN - hold home ibuprofen - followed by [facility] oncology Hx of PE: - continue home warfarin regimen (10mg M/T/R/S/Sun; 15mg W/F) - INR 3.6 this AM - INR goal 2.5-3.5 MDD: - continue home duloxetine HTN: - continue home furosemide Hypothyroidism: - continue home levothyroxine BPH: - continue home tamsulosin Admission and Anticipated Discharge Date Admission Date: August 17, 2020 Supervising Physician Co-Signing Physician Notes Patient seen and examined with PGY-2 Dr. Jack. Agree with history, exam findings, assessment and plan of care as outlined. In brief, Mr. Chin is a 64 year old male with history of metastatic lung cancer, COPD, PE, and BPH admitted with worsening pneumonia and dyspnea after starting outpatient treatment for pneumonia. Also noted to have some thoracic back pain on the left. Feels that breathing at rest is better, but noted that he got very winded with minimal exertion. On exam, he is a bit short of breath with movement in the bed. Heart with regular rhythm. No murmur. No peripheral edema. Lungs with fair air movement, ronchi and wheezing throughout. 1. Pneumonia. Worsened on outpatient treatment. Continue ceftriaxone and add azithro. 2. COPD exacerbation. Methylprednisolone, duonebs and albuterol scheduled and PRN. Pepcid for GI prophylaxis with methylpred. Azithro as above. Add incentive spirometry, flutter valve. 3. Metastatic lung cancer and cancer related pain. Continue with home fentanyl patch, oxycodone. Followed by Dr. Tinoco as an outpatient. Last chemo was 3 weeks ago and is scheduled to have another round of chem on Wednesday. 4. Hx of PE, anticoagulated with coumadin. INR 3.6. Held last nights dose as INR was supratherapeutic on admission. Restart home regimen (15mg WF and 10mg other days). Will need to keep an eye on INR with the antibiotics. Other chronic issues stable and home medications continued. Subjective Patient was feeling back to his normal self, before he started to feel more fatigued while getting up to shower/bathe himself. Has improved work of breathing and has been able to be transitioned back to his home oxygen supplementation without feeling short of breath. Denies coughing, wheezing, nausea, or abdominal pain. Review of Systems Review of Systems: All systems reviewed & are unremarkable except as noted in Subjective Physical Exam Constitutional: WD/WN, vitals as above Eyes: PERRL, conjunctivae normal, anicteric sclerae Respiratory: normal respiratory effort; no labored breathing, no retractions, does not use accessory muscles and no cough Auscultation: + rhonchi and + wheezes; no crackles Cardiovascular: Rate/Rhythm: regular rate and regular rhythm Heart Sounds: no gallop, no murmur and no cardiac rub Vessels: normal peripheral pulses; no JVD Gastrointestinal (Abdomen): normal bowel sounds, soft, nontender, no hepatosplenomegaly Psychiatric: Orientation: alert and oriented x 3 Results & Data Results & Data ([facility]) Vital Signs (Past 12 Hours) Vital Signs Temp Pulse Pulse Resp BP BP Pulse Ox 08/18/20 11:13 36.6 C 92 H 20 171/91 H 91 08/18/20 07:45 88 88 18 93 08/18/20 07:24 84 168/91 H 08/18/20 04:00 36.8 C 88 20 153/80 H 95 08/18/20 03:58 100 H Laboratory Results 08/18/20 08/18/20 08/18/20 Range/Units 05:55 05:55 05:55 WBC 8.67 (4.8-10.8) K/uL RBC 3.04 L (4.7-6.1) M/uL Hgb 8.9 L (14.0-18.0) g/dL Hct 29.3 L (42-52) % MCV 96.4 (80-100) fL MCH 29.3 (25-34) pg MCHC 30.4 L (32-36) g/dL RDW Std Deviation 54.6 H (36.4-46.3) fL RDW Coeff of Lele 15.5 H (11.5-14.5) % Plt Count 357 (130-400) K/uL MPV 9.5 (7.4-10.4) fL Immature Gran % (Auto) 1.5 % Neut % (Auto) 78.7 % Lymph % (Auto) 8.3 % [place] % (Auto) 11.4 % Eos % (Auto) 0.0 % Baso % (Auto) 0.1 % Neut # (Auto) 6.82 H (1.4-6.5) K/uL Lymph # (Auto) 0.72 L (1.2-3.4) K/uL [place] # (Auto) 0.99 H (0.11-0.59) K/uL Eos # (Auto) 0.00 (0-0.5) K/uL Baso # (Auto) 0.01 (0-0.2) K/uL Immature Gran # (Auto) 0.13 H (0.00-0.02) K/uL Absolute Nucleated RBC 0.06 H (0-0) K/uL Nucleated RBC % (auto) 0.7 % Dohle Bodies 2+ Rouleaux 1+ PT 35.8 H (9.0-12.0) Seconds INR 3.6 H (0.9-1.1) Sodium 137 (136-145) mmol/L Potassium 4.9 D (3.5-5.1) mmol/L Chloride 102 (98-107) mmol/L Carbon Dioxide 32 (21-32) mmol/L Anion Gap 3.0 (3-11) BUN 28 H (7-18) mg/dl Creatinine 1.15 (0.6-1.4) mg/dl Est Cr Clr Drug Dosing 61.1 ml/min Est GFR ( Amer) 76.4 Est GFR (Non-Af Amer) 65.9 BUN/Creatinine Ratio 24.3 H (10-20) Glucose 128 H (70-99) mg/dl Calcium 8.2 L (8.5-10.1) mg/dl Phosphorus 3.3 (2.5-4.9) mg/dl Magnesium 2.4 (1.8-2.4) mg/dl Urine Color Urine Appearance (Clear) Urine pH (4.5-7.5) Ur Specific [place] (1.000-1.030) Urine Protein (Negative) Urine Glucose (UA) (Negative) Urine Ketones (Negative) Urine Blood (Negative) Urine Nitrite (Negative) Urine Bilirubin (Negative) Urine Urobilinogen (Negative) Ur Leukocyte Esterase (Negative) Urine WBC (Auto) (0-5) /hpf Urine RBC (Auto) (0-4) /hpf U Hyaline Cast (Auto) (0-5) /lpf U Epithel Cells (Auto) (0-5) /lpf Urine Bacteria (Auto) (Negative) 08/17/20 Range/Units 23:30 WBC (4.8-10.8) K/uL RBC (4.7-6.1) M/uL Hgb (14.0-18.0) g/dL Hct (42-52) % MCV (80-100) fL MCH (25-34) pg MCHC (32-36) g/dL RDW Std Deviation (36.4-46.3) fL RDW Coeff of Lele (11.5-14.5) % Plt Count (130-400) K/uL MPV (7.4-10.4) fL Immature Gran % (Auto) % Neut % (Auto) % Lymph % (Auto) % [place] % (Auto) % Eos % (Auto) % Baso % (Auto) % Neut # (Auto) (1.4-6.5) K/uL Lymph # (Auto) (1.2-3.4) K/uL [place] # (Auto) (0.11-0.59) K/uL Eos # (Auto) (0-0.5) K/uL Baso # (Auto) (0-0.2) K/uL Immature Gran # (Auto) (0.00-0.02) K/uL Absolute Nucleated RBC (0-0) K/uL Nucleated RBC % (auto) % Dohle Bodies Rouleaux PT (9.0-12.0) Seconds INR (0.9-1.1) Sodium (136-145) mmol/L Potassium (3.5-5.1) mmol/L Chloride (98-107) mmol/L Carbon Dioxide (21-32) mmol/L Anion Gap (3-11) BUN (7-18) mg/dl Creatinine (0.6-1.4) mg/dl Est Cr Clr Drug Dosing ml/min Est GFR ( Amer) Est GFR (Non-Af Amer) BUN/Creatinine Ratio (10-20) Glucose (70-99) mg/dl Calcium (8.5-10.1) mg/dl Phosphorus (2.5-4.9) mg/dl Magnesium (1.8-2.4) mg/dl Urine Color Yellow Urine Appearance Clear (Clear) Urine pH 5.5 (4.5-7.5) Ur Specific [place] > 1.045 H (1.000-1.030) Urine Protein 2+ H (Negative) Urine Glucose (UA) Negative (Negative) Urine Ketones Negative (Negative) Urine Blood Negative (Negative) Urine Nitrite Negative (Negative) Urine Bilirubin Negative (Negative) Urine Urobilinogen Negative (Negative) Ur Leukocyte Esterase Negative (Negative) Urine WBC (Auto) 1-5 (0-5) /hpf Urine RBC (Auto) 10-30 H (0-4) /hpf U Hyaline Cast (Auto) 1-5 (0-5) /lpf U Epithel Cells (Auto) 10-20 H (0-5) /lpf Urine Bacteria (Auto) Negative (Negative) Medications Administered Current Inpatient Medications Acetaminophen (Acetaminophen 325 Mg Tab) 650 mg PO Q4H PRN PRN Reason: pain/fever Stop: 09/16/20 18:08 Last Admin: 08/18/20 00:28 Dose: 650 mg Documented by: Al Hydrox/Mg Hydrox/Simethicone (Aluminum/Magnesium Susp 30 Ml Udc) 30 ml PO Q6H PRN PRN Reason: Dyspepsia Stop: 09/16/20 18:08 Albuterol (Albuterol Hfa 8 Gm Inhaler) 2 puffs INH Q4H PRN PRN Reason: Shortness Of Breath Or Wheezing Stop: 09/16/20 18:08 Albuterol (Albut/Ipratrop 3mg/0.5mg Neb 3 Ml Vial) 3 ml INH Q4H PRN PRN Reason: Shortness Of Breath Or Wheezing Stop: 09/16/20 18:08 Last Admin: 08/18/20 14:14 Dose: 3 ml Documented by: Duloxetine HCl (Duloxetine Hcl 20 Mg Cap) 20 mg PO DAILY AM[facility]I Stop: 09/17/20 08:59 Last Admin: 08/18/20 09:02 Dose: 20 mg Documented by: Fentanyl (Fentanyl 25 Mcg/Hr Tdsy) 25 mcg TD Q3D AM[facility]I Stop: 08/31/20 21:14 Last Admin: 08/17/20 21:23 Dose: 25 mcg Documented by: Fluticasone/Vilanterol (Fluticasone/Vilanterol 100/25mcg 14 Puffs/Inhaler) 1 puffs INH DAILY AMARI Stop: 09/17/20 08:59 Last Admin: 08/18/20 09:01 Dose: 1 puffs Documented by: Folic Acid (Folic Acid 1 Mg Tab) 1 mg PO DAILY AMARI Stop: 09/17/20 08:59 Last Admin: 08/18/20 09:02 Dose: 1 mg Documented by: Furosemide (Furosemide 40 Mg Tab) 40 mg PO QAM [facility] Stop: 09/17/20 08:59 Last Admin: 08/18/20 09:02 Dose: 40 mg Documented by: Guaifenesin (Guaifenesin 600 Mg Tabcr) 600 mg PO BID [facility] Stop: 09/16/20 20:59 Last Admin: 08/18/20 09:02 Dose: 600 mg Documented by: Heparin Sodium (Beef Lung) (Heparin 10 Unit/Ml 5 Ml Flush) 5 ml FLUSH PRN PRN PRN Reason: Flush Stop: 09/16/20 18:17 Last Admin: 08/18/20 09:59 Dose: 5 ml Documented by: Heparin Sodium (Porcine) (Heparin 100 Unit/Ml 5ml Flush) 5 ml FLUSH PRN PRN PRN Reason: Flush Stop: 09/16/20 23:10 Last Admin: 08/18/20 05:55 Dose: 3 ml Documented by: Famotidine 20 mg/ Syringe 5 mls @ 2.5 mls/min IV BID [facility] Stop: 09/16/20 20:59 Last Admin: 08/18/20 09:03 Dose: 2.5 mls/min Documented by: Azithromycin 250 mg/ Dextrose 252.5 mls @ 125 mls/hr IV Q24H [facility] Stop: 08/24/20 16:29 Last Admin: 08/18/20 16:02 Dose: 125 mls/hr Documented by: Ceftriaxone Sodium 2,000 mg/ (Dextrose) 70 mls @ 100 mls/hr IV DAILY [facility]; Protocol Stop: 08/25/20 08:59 Last Infusion: 08/18/20 09:57 Dose: Infused Documented by: Influenza Virus Vaccine (Influenza Vaccine High Dose 65+ 0.5 Ml Syr) 0.5 ml IM .ONCE ONE Stop: 08/24/20 09:01 Levothyroxine Sodium (Levothyroxine Sodium 25 Mcg Tablet) 25 mcg PO DAILYBB [facility] Stop: 09/17/20 06:29 Last Admin: 08/18/20 06:36 Dose: 25 mcg Documented by: Lisinopril (Lisinopril 20 Mg Tab) 20 mg PO BID [facility] Stop: 09/16/20 20:59 Last Admin: 08/18/20 09:03 Dose: 20 mg Documented by: Miscellaneous (Check Fentanyl Patch Placement) 1 ea N/A QS [facility] Stop: 09/16/20 18:29 Last Admin: 08/18/20 16:04 Dose: 1 ea Documented by: Miscellaneous (Fentanyl Patch Remove & Waste) 1 ea N/A Q3D [facility] Stop: 09/19/20 21:14 Ondansetron HCl (Ondansetron Inj 2 Mg/Ml 2 Ml Vial) 4 mg IV Q6H PRN PRN Reason: Nausea Stop: 09/16/20 18:08 Oxycodone HCl (Oxycodone Hcl Ir 5 Mg Tab (Immediate Release)) 10 mg PO Q6H PRN PRN Reason: Pain Stop: 08/31/20 15:58 Last Admin: 08/18/20 09:19 Dose: 10 mg Documented by: Polyethylene Glycol (Polyethylene (Miralax) 17 Gm Pack) 17 gm PO DAILY PRN PRN Reason: Constipation Stop: 09/16/20 18:08 Prochlorperazine (Prochlorperazine Maleate 10 Mg Tab) 10 mg PO Q6H PRN PRN Reason: Nausea Stop: 09/16/20 18:08 Tamsulosin HCl (Tamsulosin Hcl 0.4 Mg Cap) 0.4 mg PO HS [facility] Stop: 09/16/20 20:59 Last Admin: 08/17/20 20:27 Dose: 0.4 mg Documented by: Warfarin Sodium (Warfarin Sod 5 Mg Tab) 15 mg PO WeFr@1600 [facility] Stop: 09/20/20 15:59 Warfarin Sodium (Warfarin Sod 10 Mg Tab) 10 mg PO [id number]@1600 [facility] Stop: 09/18/20 15:59 Resident Activity Tracking Resident Involvement: Resident Care Provided Care Provided: Adult Hospital Medicine (1) Pneumonia Laterality: left Lung location: lower lobe of lung Pneumonia type: due to unspecified organism Qualified Code(s): J18.9 - Pneumonia, unspecified organism
[2020-08-18] MEDS: AZITHROMYCIN 250 MG in DEXTROSE 5% 250 ML IV SCH (16:02)
[2020-08-18] MEDS: hydrALAZINE HCL 20 MG/ML VIAL IV PRN (19:47)
[2020-08-18] MEDS: TAMSULOSIN HCL 0.4 MG CAP PO SCH (21:07)
[2020-08-18] MEDS ORDERED: LORazepam 0.5 MG TAB PO STA (23:40)
[2020-08-18] MEDS ORDERED: LORazepam 0.5 MG TAB ONE (23:46)
[2020-08-18] MEDS ORDERED: ALBUT/IPRATROP 3MG/0.5MG NEB 3 ML VIAL NEB STA (23:53)
[2020-08-19] MEDS: CHECK fentaNYL PATCH PLACEMENT SCH ×4 (00:44→23:08)
[2020-08-19] MEDS: LORazepam 0.5 MG TAB PO PRN ×3 (04:56→23:06)
[2020-08-19] MEDS: ALBUT/IPRATROP 3MG/0.5MG NEB 3 ML VIAL NEB PRN ×4 (04:57→19:10)
[2020-08-19] MEDS ORDERED: ALBUT/IPRATROP 3MG/0.5MG NEB 3 ML VIAL NEB SCH (05:00)
[2020-08-19] MEDS: LEVOTHYROXINE SODIUM 25 MCG TABLET PO SCH (05:44)
[2020-08-19 06:32] LABS: Hematocrit (blood only) 33.1 % (42-52); Hemoglobin 10.4 g/dL (14.0-18.0); Mean Corpuscular Hgb Conc 31.4 g/dL (32-36); Mean Corpuscular Volume 95.4 fL (80-100); Mean Platelet Volume 9.7 fL (7.4-10.4); Nucleated RBC # (auto) 0.15 K/uL (0-0); Nucleated RBC % (auto) 1.2 %; Platelet Count 444 K/uL (130-400); RDW Coefficient of Variation 15.7 % (11.5-14.5); RDW Standard Deviation 54.3 fL (36.4-46.3); Red Blood Count 3.47 M/uL (4.7-6.1); White Blood Count 12.57 K/uL (4.8-10.8)
[2020-08-19 06:41] LABS: Prothrombin Time 20.6 Seconds (9.0-12.0)
[2020-08-19 07:00] LABS: Magnesium 2.2 mg/dl (1.8-2.4); Phosphorus 2.2 mg/dl (2.5-4.9)
[2020-08-19 07:39] LABS: ALC (manual) 0.77 K/uL (1.2-3.4); ANC (manual) 9.08 K/uL (1.4-6.5); Lymphocytes # (manual) 0.77 K/uL (1.2-3.4); Lymphocytes % (manual) 6.1 %; Metamyelocytes # (manual) 0.44 K/uL (0-0); Metamyelocytes % (manual) 3.5 %; Monocytes # (manual) 1.31 K/uL (0.11-0.59); Monocytes % (manual) 10.4 %; Myelocytes # (manual) 0.98 K/uL (0-0); Myelocytes % (manual) 7.8 %; Neutrophils # (manual) 9.08 K/uL (1.4-6.5); Neutrophils % (manual) 72.2 %
[2020-08-19] MEDS: cefTRIAXone SODIUM 2,000 MG in DEXTROSE 5% 50 ML IV SCH (08:10)
[2020-08-19] MEDS: FLUTICASONE/VILANTEROL 100/25MCG 14 PUFFS/INHALER INH SCH (08:11)
[2020-08-19] MEDS: DULoxetine HCL 20 MG CAP PO SCH (08:11)
[2020-08-19] MEDS: FAMOTIDINE 20 MG in SYRINGE 3 ML IV SCH (08:11)
[2020-08-19] MEDS: FOLIC ACID 1 MG TAB PO SCH (08:11)
[2020-08-19] MEDS: lisinopril 20 MG TAB PO SCH ×2 (08:11→21:01)
[2020-08-19] MEDS: FUROSEMIDE 40 MG TAB PO SCH (08:11)
[2020-08-19] MEDS: guaiFENesin 600 MG TABCR PO SCH ×2 (08:11→21:01)
[2020-08-19] MEDS: HEPARIN 100 UNIT/ML 5ML FLUSH FLUSH PRN ×2 (09:05→13:36)
--- NOTE | 2020-08-19 09:39 | Hospitalist Progress Note ---
Date of Service August 19, 2020 Assessment & Plan Admission and Anticipated Discharge Date Admission Date: August 17, 2020 Results & Data Results & Data ([facility]) Vital Signs (Past 12 Hours) Vital Signs Temp Pulse Pulse Resp BP BP Pulse Ox 08/19/20 07:48 37.4 C 107 H 20 177/88 H 93 08/19/20 07:23 108 H 20 94 08/19/20 04:57 101 H 24 95 08/19/20 03:52 36.8 C 105 H 19 172/84 H 93 08/19/20 01:02 97 H 20 98 08/19/20 00:30 98 H 08/18/20 23:51 99 H 174/84 H 08/18/20 23:27 36.7 C 100 H 26 H 95 08/18/20 22:39 98 H 182/86 H 94
--- NOTE | 2020-08-19 10:33 | Medical Student Progress Note ---
Date of Service August 19, 2020 Assessment & Plan (1) Pneumonia: Mr. 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 1) Pneumonia: Increased SOB today w/o increased O2 demand, likely 2/2 mucus plugging vs anxiety - CXR: Mild interval improvement in right lower lung opacity favoring pneumonia. Small right pleural effusion. - CTA: no PE, moderate left lower lobe consolidation and multifocal airspace opacities within the right lower and right middle lobes consistent with pneumonia - given azithromycin 500mg IV on admit, 250mg IV daily after - continue ceftriaxone daily 2) COPD exacerbation: - continue methylprednisolone 60mg daily; plan to continue for 5 days with then taper by 10mg every 5 days - hold home prednisone - azithromycin 250mg IV daily - ceftriaxone received in ED, will continue - O2 supp PRN (home O2 requirement 3-4L at baseline), maintain SpO2 88-92% - continue home inhaler regimen - bipap on stand by if worsening 3) Lung CA, pain mgmt: - fentanyl patch 25mcg/hr q72h, started 08/17 - oxycodone 10mg PO q6H PRN - hold home ibuprofen - followed by [facility] oncology 4) Hx of PE: - continue home warfarin regimen (10mg M/T/R/S/Sun; 15mg W/F) - INR 2.0 this AM - INR goal 2.5-3.5 5) MDD: - continue home duloxetine 20mg 6) HTN: - continue home furosemide 7) Hypothyroidism: - continue home levothyroxine 8) BPH: - continue home tamsulosin Laterality: left Lung location: lower lobe of lung Pneumonia type: due to unspecified organism Qualified Code(s): J18.9 - Pneumonia, unspecified organism Admission and Anticipated Discharge Date Admission Date: August 17, 2020 Supervising Attestation I personally examined the patient and verified all saavedra points of history and exam, discussed case, and agree with decision making with Filomena Fuentes MS4. feeling more sob today. cough - sometimes sputum, a lot of the time not. no f/c/s. worried that he's getting worse. vitals noted sitting upright in bed occassionally leaning head into 's side. appearing somewhat dyspnic. heent nc at mmm. lungs base rales R>L probably more silent L>R no wheeze no diffuse findings no rhonchi - had MS4 Spicher re-auscultate and he noted a clear difference from when he listened earlier - of note - pt just post-neb at the time of this evaluation. cn 2-12 grossly intact gross motor/sensory intact. Chronic respiratory failure with hypoxia, acute on chronic respiratory failure - related to CAP w COPD exacerbation - -worsening overnight/today seems most c/w mucous plugging +/- anxiety from dyspnea. possible COPD/bronchospasm component but lungs more clear and ovearll better air entry than would be expected for this. anticoagulated so PE unlikely, no fever and WBC only barely above normal, lung exam fairly c/w previous imaging and O2 requirement in his baseline range making new pneumonia unlikely. lack of CHF track record, lung exam and baseline O2 requirement plead against CHF (does have moderate concentric LVH on echo ~3 months ago so follow closely - but seems unlikely to be the case). educated extensively on this. steroids resumed (MS4 noted that computer error somehow allowed steroids not to be on for today - reordered by R2), continue nebs, flutter valve encouraged to use extensively, re-evals (later revisted by MS4 who noted pt sleeping comfortably) otherwise as above Subjective Mr. Chin stated that he feels his breathing has gotten worse since yesterday. Over the evening he became anxious with regards to his shortness of breath and improved with PRN Ativan. Additionally, he endorses increased sputum production. He is having 4/10 pain in his L back. Review of Systems Constitutional: + chills and + sweats; no fever and no fatigue Respiratory: + cough, + chest congestion, + hemoptysis and + pain with cough Cardiovascular: + dyspnea and + orthopnea; no lightheadedness and no syncope Gastrointestinal: no abdominal pain, no nausea, no vomiting and no change in bowel habits Physical Exam Constitutional: Well appearing gentleman resting in bed ENMT: external ear and nose normal, oropharynx normal Neck: trachea midline, no thyromegaly Respiratory: Lungs with diffuse rhonchi throughout upper lung irvin, bilateral crackles at bases. Increased work of breathing. Cardiovascular: Regular rate and rhythm, no murmurs, rubs or extra heart sounds. No peripheral edema Gastrointestinal (Abdomen): Normoactive bowel sounds, non-tender to palpation Psychiatric: Alert and oriented x3, appears anxious Results & Data ([facility]) Vital Signs (Past 12 Hours) Vital Signs Temp Pulse Pulse Resp BP BP Pulse Ox 08/19/20 07:48 37.4 C 107 H 20 177/88 H 93 08/19/20 07:23 108 H 20 94 08/19/20 04:57 101 H 24 95 08/19/20 03:52 36.8 C 105 H 19 172/84 H 93 08/19/20 01:02 97 H 20 98 08/19/20 00:30 98 H 08/18/20 23:51 99 H 174/84 H 08/18/20 23:27 36.7 C 100 H 26 H 95 08/18/20 22:39 98 H 182/86 H 94
[2020-08-19] MEDS ORDERED: LORazepam 0.5 MG TAB PO PRN ×2 (11:45→11:55)
[2020-08-19] MEDS: methylPREDNISolone 60 MG in SYRINGE 0 ML IV SCH (13:36)
[2020-08-19] MEDS: hydrALAZINE HCL 20 MG/ML VIAL IV PRN (15:46)
[2020-08-19] MEDS: WARFARIN SOD 10 MG TAB PO SCH (15:56)
--- NOTE | 2020-08-19 16:46 | Billing Data ---
Date of Service August 19, 2020 Coding Level of Care Code 32774 Subseq Hosp Care Lvl 3
[2020-08-19] MEDS: AZITHROMYCIN 250 MG in DEXTROSE 5% 250 ML IV SCH (17:45)
[2020-08-19] MEDS: FAMOTIDINE 20 MG TAB PO SCH (21:00)
[2020-08-19] MEDS: TAMSULOSIN HCL 0.4 MG CAP PO SCH (21:01)
[2020-08-20] MEDS: LORazepam 0.5 MG TAB PO PRN ×2 (04:06→08:55)
[2020-08-20] MEDS: hydrALAZINE HCL 20 MG/ML VIAL IV PRN (04:07)
[2020-08-20] MEDS: LEVOTHYROXINE SODIUM 25 MCG TABLET PO SCH (05:47)
[2020-08-20] MEDS: ALBUT/IPRATROP 3MG/0.5MG NEB 3 ML VIAL NEB PRN ×3 (06:25→20:48)
[2020-08-20 06:27] LABS: Hematocrit (blood only) 31.9 % (42-52); Hemoglobin 10.2 g/dL (14.0-18.0); Mean Corpuscular Hemoglobin 30.1 pg (25-34); Mean Corpuscular Volume 94.1 fL (80-100); Mean Platelet Volume 9.4 fL (7.4-10.4); Nucleated RBC # (auto) 0.09 K/uL (0-0); Nucleated RBC % (auto) 0.7 %; Platelet Count 421 K/uL (130-400); RDW Coefficient of Variation 15.7 % (11.5-14.5); RDW Standard Deviation 54.2 fL (36.4-46.3); Red Blood Count 3.39 M/uL (4.7-6.1); White Blood Count 14.43 K/uL (4.8-10.8)
[2020-08-20 06:38] LABS: INR 1.8 (0.9-1.1); Prothrombin Time 18.4 Seconds (9.0-12.0)
[2020-08-20 06:53] LABS: ALC (manual) 0.62 K/uL (1.2-3.4); Basophils # (manual) 0.13 K/uL (0-0.2); Basophils % (manual) 0.9 %; Lymphocytes # (manual) 0.62 K/uL (1.2-3.4); Lymphocytes % (manual) 4.3 %; Metamyelocytes # (manual) 0.38 K/uL (0-0); Metamyelocytes % (manual) 2.6 %; Monocytes # (manual) 0.25 K/uL (0.11-0.59); Monocytes % (manual) 1.7 %; Myelocytes # (manual) 1.26 K/uL (0-0); Myelocytes % (manual) 8.7 %; Neutrophils % (manual) 81.8 %; Polychromasia 1+; Rouleaux 1+
[2020-08-20 06:59] LABS: BUN Creatinine Ratio 31.4 (10-20); Calcium 8.7 mg/dl (8.5-10.1); Creatinine Clr Calc Pharmacy 73.2 ml/min; Est GFR (African American) 95.1; Magnesium 2.3 mg/dl (1.8-2.4); Potassium 4.1 mmol/L (3.5-5.1)
[2020-08-20 07:25] LABS: Phosphorus 4.1 mg/dl (2.5-4.9)
[2020-08-20 07:32] LABS: Base Excess ABG 3.1 mEq/L (-9-1.8); HCO3 ABG 27 mmol/L (19-24); Oxygen Saturation ABG 96.1 % (90-95); PCO2 ABG 39 mmHg (35-46); PO2 ABG 84 mmHg (80-95); pH ABG 7.46 (7.35-7.45)
--- NOTE | 2020-08-20 07:32 | Hospitalist Progress Note ---
Date of Service August 20, 2020 Assessment & Plan Admission and Anticipated Discharge Date Admission Date: August 17, 2020 Results & Data Results & Data ([facility]) Vital Signs (Past 12 Hours) Vital Signs Temp Pulse Pulse Resp BP BP Pulse Ox 08/20/20 07:22 104 H 08/20/20 07:20 36.5 C 110 H 20 169/82 H 94 08/20/20 06:26 111 H 26 H 91 08/20/20 05:00 156/92 H 08/20/20 03:11 37.3 C 98 H 23 185/93 H 94 08/20/20 00:36 101 H 08/19/20 22:48 37.0 C 104 H 23 158/87 H 95 08/19/20 20:03 37.5 C 104 H 22 154/88 H 93
[2020-08-20 07:35] LABS: Allen Test Pos (Pos)
[2020-08-20] MEDS: FLUTICASONE/VILANTEROL 100/25MCG 14 PUFFS/INHALER INH SCH (08:46)
[2020-08-20] MEDS: methylPREDNISolone 60 MG in SYRINGE 0 ML IV SCH (08:46)
[2020-08-20] MEDS: CHECK fentaNYL PATCH PLACEMENT SCH ×3 (08:46→23:18)
[2020-08-20] MEDS: FOLIC ACID 1 MG TAB PO SCH (08:47)
[2020-08-20] MEDS: DULoxetine HCL 20 MG CAP PO SCH (08:47)
[2020-08-20] MEDS: lisinopril 20 MG TAB PO SCH ×2 (08:47→20:09)
[2020-08-20] MEDS: FUROSEMIDE 40 MG TAB PO SCH (08:47)
[2020-08-20] MEDS: guaiFENesin 600 MG TABCR PO SCH ×2 (08:47→20:09)
[2020-08-20] MEDS: FAMOTIDINE 20 MG TAB PO SCH ×2 (08:48→20:09)
[2020-08-20] MEDS: cefTRIAXone SODIUM 2,000 MG in DEXTROSE 5% 50 ML IV SCH (08:55)
[2020-08-20] MEDS ORDERED: fentaNYL 25 MCG/HR TDSY TD SCH (09:00)
--- NOTE | 2020-08-20 09:08 | XRay Report ---
SINGLE VIEW CHEST CLINICAL HISTORY: Hypoxia. FINDINGS: An AP, portable, upright chest radiograph is compared to study dated 08/17/2020 and correla aiden with chest CT dated 08/17/2020. The examination is degraded by portable technique and patient rot ation. A left sided central venous infusion port is unchanged in position. The cardiomediastinal silh ouette is unremarkable. Emphysema and chronic interstitial thickening are similar to previous. Again seen is volume loss with elevation of the right hemidiaphragm consistent with right upper lobe resect ion. Scarring/atelectasis is noted at the lung bases. There is no airspace consolidation typical for pneumonia or large pleural effusion. No pneumothorax is seen. Apical bullae are noted. The skeletal s tructures are osteopenic. Fusion hardware is seen in the lower cervical spine. Postoperative change i s noted in the right sided ribs. IMPRESSION: 1. No acute cardiopulmonary abnormality is identified. 2. Emphysema and postoperative change from right upper lobe resection as above. 3. Left basilar consolidation seen by CT is not well-visualized by x-ray. Electronically signed by: Julius Wynne M.D. 08/20/2020 9:06 AM
--- NOTE | 2020-08-20 10:08 | Medical Student Progress Note ---
Date of Service August 20, 2020 Assessment & Plan (1) Pneumonia: Mr. Reggie Chin is a 64y/o male with COPD, adenocarcinoma of the lung with mets to liver, previous Hx of PE, former smoker, who presented to the ED today with sudden onset of difficulty breathing, likely COPD exacerbation 2/2 to PNA. 1) Pneumonia: Increased 02 demand today, on 5L oxymask from 4L NC yesterday. Less sx than yesterday -Increased breath sounds at base, states he feels less anxious at higher FiO2 - CXR: Mild interval improvement in right lower lung opacity favoring pneumonia. Small right pleural effusion. - CTA: no PE, moderate left lower lobe consolidation and multifocal airspace opacities within the right lower and right middle lobes consistent with pneumonia - given azithromycin 500mg IV on admit, 250mg IV daily after - continue ceftriaxone daily 2) COPD exacerbation: - continue methylprednisolone 60mg daily; plan to continue for 5 days with then taper by 10mg every 5 days - hold home prednisone - azithromycin 250mg IV daily - ceftriaxone received in ED, will continue - O2 supp PRN (home O2 requirement 3-4L at baseline), maintain SpO2 88-92% - continue home inhaler regimen - bipap on stand by if worsening 3) Lung CA, pain mgmt: - fentanyl patch 25mcg/hr q72h, started 08/17 - oxycodone 10mg PO q6H PRN - hold home ibuprofen - followed by [facility] oncology 4) Hx of PE: - continue home warfarin regimen (10mg M/T/R/S/Sun; 15mg W/F) - INR 1.8 this AM, increased dose by 5mg today - INR goal 2.5-3.5 5) MDD: - continue home duloxetine 20mg 6) HTN: - continue home furosemide 7) Hypothyroidism: - continue home levothyroxine 8) BPH: - continue home tamsulosin Laterality: left Lung location: lower lobe of lung Pneumonia type: due to unspecified organism Qualified Code(s): J18.9 - Pneumonia, unspecified organism Admission and Anticipated Discharge Date Admission Date: August 17, 2020 Supervising Attestation I personally examined the patient and verified all saavedra points of history and exam, discussed case, and agree with decision making with Filomena Fuentes MS4. "when can i go home?" coughing up more sputum and feeling better otherwise. family at bedside, updated extensively vitals noted heent nc at mmm breathing unlabored no accessory muscles good effort lungs good air entry base R rales more pronounced than yesterday otherwise more clear and better air entry. cn 2-12 grossly intact gross mo tor/sensory intact Chronic respiratory failure with hypoxia, acute on chronic respiratory failure - related to CAP w COPD exacerbation - -doing better w increased pulmonary toilet. continue to encourage, follow closely. can increase steroids if needed or increase nebs but since he is feeling better will continue current care for now. otherwise as above Subjective Mr. Chin feels as though his breathing has improved from yesterday. He states that he continues to have a productive cough, bringing up mucus and he feels that he is bringing more up than yesterday. He is still remains anxious regarding his shortness of breath requiring Ativan PRN overnight. Review of Systems Constitutional: + chills; no fever, no sweats and no weakness Respiratory: + cough, + chest congestion, + dyspnea and + sputum production Cardiovascular: + orthopnea; no chest pain, no palpitations and no edema Gastrointestinal: no abdominal pain, no nausea, no vomiting and no hematemesis Physical Exam Constitutional: Well appearing male resting in bed with oxymask in place Respiratory: Normal expiratory effort, symmetric chest wall movement, bibasilar inspiratory rales, slight wheezes bilaterally Cardiovascular: Regular rate and rhythm, no murmurs rubs or extra heart sounds, no peripheral edema Gastrointestinal (Abdomen): Normoactive bowel sounds, nontender to palpation, no hepatosplenomegaly Psychiatric: AAOx3, anxious appearing Results & Data ([facility]) Vital Signs (Past 12 Hours) Vital Signs Temp Pulse Pulse Resp BP BP Pulse Ox 08/20/20 07:22 104 H 08/20/20 07:20 36.5 C 110 H 20 169/82 H 94 08/20/20 06:26 111 H 26 H 91 08/20/20 05:00 156/92 H 08/20/20 03:11 37.3 C 98 H 23 185/93 H 94 08/20/20 00:36 101 H 08/19/20 22:48 37.0 C 104 H 23 158/87 H 95
[2020-08-20] MEDS: oxyCODONE HCL IR 5 MG TAB (IMMEDIATE RELEASE) PO PRN ×2 (13:40→20:44)
[2020-08-20] MEDS: WARFARIN SOD 10 MG TAB PO SCH (16:01)
[2020-08-20] MEDS: AZITHROMYCIN 250 MG in DEXTROSE 5% 250 ML IV SCH (16:03)
[2020-08-20] MEDS: ACETAMINOPHEN 325 MG TAB PO PRN (16:11)
--- NOTE | 2020-08-20 17:46 | Billing Data ---
Date of Service August 20, 2020 Coding Level of Care Code 84520 Subseq Hosp Care Lvl 3
[2020-08-20] MEDS: TAMSULOSIN HCL 0.4 MG CAP PO SCH (20:09)
[2020-08-20] MEDS: fentaNYL 25 MCG/HR TDSY TD SCH (20:36)
[2020-08-21] MEDS: LORazepam 0.5 MG TAB PO PRN (00:59)
[2020-08-21] MEDS: ALBUT/IPRATROP 3MG/0.5MG NEB 3 ML VIAL NEB PRN ×2 (02:14→06:05)
[2020-08-21] MEDS: ACETAMINOPHEN 325 MG TAB PO PRN (04:25)
[2020-08-21] MEDS: oxyCODONE HCL IR 5 MG TAB (IMMEDIATE RELEASE) PO PRN (04:29)
[2020-08-21] MEDS: LEVOTHYROXINE SODIUM 25 MCG TABLET PO SCH (05:38)
[2020-08-21 06:57] LABS: Hematocrit (blood only) 31.6 % (42-52); Hemoglobin 10.1 g/dL (14.0-18.0); Mean Corpuscular Hemoglobin 30.3 pg (25-34); Mean Corpuscular Volume 94.9 fL (80-100); Mean Platelet Volume 9.8 fL (7.4-10.4); Nucleated RBC % (auto) 0.5 %; Platelet Count 434 K/uL (130-400); RDW Coefficient of Variation 15.7 % (11.5-14.5); RDW Standard Deviation 54.4 fL (36.4-46.3); Red Blood Count 3.33 M/uL (4.7-6.1); White Blood Count 19.87 K/uL (4.8-10.8)
[2020-08-21 07:31] LABS: BUN Creatinine Ratio 29.8 (10-20); Creatinine Clr Calc Pharmacy 65.1 ml/min; Est GFR (African American) 82.5; Est GFR (Non-African American) 71.1; Potassium 3.7 mmol/L (3.5-5.1)
[2020-08-21 07:46] LABS: ALC (manual) 1.75 K/uL (1.2-3.4); ANC (manual) 16.02 K/uL (1.4-6.5); Lymphocytes # (manual) 1.75 K/uL (1.2-3.4); Lymphocytes % (manual) 8.8 %; Metamyelocytes # (manual) 0.36 K/uL (0-0); Metamyelocytes % (manual) 1.8 %; Monocytes # (manual) 0.87 K/uL (0.11-0.59); Monocytes % (manual) 4.4 %; Myelocytes # (manual) 0.87 K/uL (0-0); Myelocytes % (manual) 4.4 %; Neutrophils # (manual) 16.02 K/uL (1.4-6.5); Neutrophils % (manual) 80.6 %
[2020-08-21] MEDS: DULoxetine HCL 20 MG CAP PO SCH (08:06)
[2020-08-21] MEDS: FLUTICASONE/VILANTEROL 100/25MCG 14 PUFFS/INHALER INH SCH (08:06)
[2020-08-21] MEDS: lisinopril 20 MG TAB PO SCH (08:07)
[2020-08-21] MEDS: FUROSEMIDE 40 MG TAB PO SCH (08:07)
[2020-08-21] MEDS: FAMOTIDINE 20 MG TAB PO SCH (08:07)
[2020-08-21] MEDS: FOLIC ACID 1 MG TAB PO SCH (08:07)
[2020-08-21] MEDS: guaiFENesin 600 MG TABCR PO SCH (08:07)
[2020-08-21] MEDS: methylPREDNISolone 60 MG in SYRINGE 0 ML IV SCH (08:07)
[2020-08-21] MEDS: cefTRIAXone SODIUM 2,000 MG in DEXTROSE 5% 50 ML IV SCH (08:07)
[2020-08-21] MEDS: CHECK fentaNYL PATCH PLACEMENT SCH (08:08)
--- NOTE | 2020-08-21 11:14 | Discharge Summary ---
Date of Service August 21, 2020 Admission HPI Per Admitting Provider Mr. 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 He had recently been to the ED for PNA on 08/15, refused admission, received and had been taking doxycycline. This morning he woke up with sharp pain and continued difficulty breathing, which was not improved with 4L/min O2 at home, and did not improve with nebulizer treatment at home. Per EMS, he de-saturated to 70s upon their arrival. In the ED, stabilized initially using 10L NC, received 1does of ceftriaxone. CXR demonstrated increased concern for bilat PNA, confirmed on CTA. Admission Exam Per Admitting Provider Constitutional: + acute distress Eyes: PERRL, conjunctivae normal, anicteric sclerae Respiratory: + labored breathing, + uses accessory muscles, + tachypneic, + prolonged expiratory phase, + audible wheezes and + grunting; + not able to speak in complete sentence Auscultation: + crackles and + wheezes Cardiovascular: Rate/Rhythm: regular rhythm and + tachycardic Heart Sounds: normal S1 and normal S2; no gallop, no murmur and no cardiac rub Gastrointestinal (Abdomen): normal bowel sounds, soft, nontender, no hepatosplenomegaly Musculoskeletal: not tender to palpation at focal area of back pain Skin: no rashes Psychiatric: Orientation: alert and oriented x 3 Principal Diagnosis Multilobar pneumonia, COPD exacerbation Discharge Exam Constitutional Well appearing gentleman in no acute distress eating breakfast Eyes PERRL, conjunctivae normal, anicteric sclerae ENMT external ear and nose normal, oropharynx normal Respiratory Bibasilar crackles without wheezes or rhonchi, symmetrical chest wall expansion Cardiovascular Regular rate and rhythm, no murmurs, rubs or gallops, no peripheral edema. Gastrointestinal (Abdomen) Normoactive bowel sounds, nontender to palpation, no hepatosplenomegaly Psychiatric A+Ox3, euthymic affect Discharge Data Allergies Allergy/AdvReac Type Severity Reaction Status Date / Time pirbuterol Allergy Severe maxair - Verified 08/17/20 10:55 "CHEST TIGHTENS" amoxicillin [From Augmentin] Allergy Mild Rash Verified 08/17/20 10:55 clavulanic acid Allergy Mild Rash Verified 08/17/20 10:55 [From Augmentin] Consultations 08/17/20 15:22 ED Decision to Admit Stat Ordered Studies 08/17/20 12:03 CT angio chest PE protocol Stat Hospital Course (1) Pneumonia: Mr. Reggie Chin is a 64y/o male with COPD, adenocarcinoma of the lung with mets to liver, previous Hx of PE, former smoker, who presented to the ED with sudden onset of difficulty breathing, secondary to COPD exacerbation and multilobar PNA. 1) Pneumonia: - CXR: Right lower lung opacity favoring pneumonia. Small right pleural effusion. - CTA: no PE, moderate left lower lobe consolidation and multifocal airspace opacities within the right lower and right middle lobes consistent with pneumonia - Treated with azithromycin 500mg IV on admit, 250mg IV daily after as well as 2g ceftriaxone daily beginning on 08/18 -Home O2 requirement of 3-4L NC, during hospitalization required up to 6L on Oxymask, back to home O2 requirement at discharge -Continue Azithromycin for 1 day to finish 5 day course as well as Cefdinir for 6 more days for total of 10 days of treatment. 2) COPD exacerbation: - Methylprednisolone 60mg IV daily during hospitalization - Antibiotics and O2 requirements as above during hospitalization - Home inhaler regimen continued - Prednisone taper, starting at 60mg PO, tapering down by 10mg every two days, resume home dose of 5mg after taper. 3) Lung CA, pain mgmt: - Pain managed with fentanyl patch 25mcg/hr q72h, oxycodone 10mg PO q6H PRN - Held ibuprofen, restarted on d/c - f/u with Onc in outpatient setting 4) Hx of PE: - Continue home warfarin regimen (10mg M/T/R/S/Sun; 15mg W/F) - INR goal 2.5-3.5 - F/u INR on 08/23 Chronic medical conditions of MDD, HTN, Hypothyroidism and BPH were managed on home regimens Total Time Total Time Spent Total Time Spent (In Minutes): <30 Discharge Plan Discharge Items Patient Disposition: Home - Self-Care Reason For Visit: COPD EXACERBATION/PNEUMONIA Discharge Diagnosis: COPD exacerbation Community acquired pneumonia Condition on Discharge: Good Activity: Per Instructions section Non-emergency contact: Primary Care Provider, Oncologist and Glass Processing Worker Call non-emergency contact if: you have any medication questions, your symptoms worsen and your temperature is above 101 Follow-up/Referrals: Shazia Marquez CRNP [Primary Care Provider] - 08/22/20 9:10 am (You have an appt with Dr Erin Russell 08/21 @ 6385. It is important that you keep this appt. If it does not fit your schedule, please call [phone] to reschedule ) Diet: Regular Addtl Attending Provider Instructions: You were admitted to the hospital for worsening shortness of breath. You were found to have a pneumonia on your imaging. You were started on high doses of oral steroids, and antibiotics to cover for your pneumonia. With time, steroids, and antibiotics, you began to improve. We felt that you were stable for discha rge home today with the following recommendations: 1) You will take Cefdinir, an oral antibiotic starting tomorrow (08/22), one pill every 12 hours until the medication is gone (08/27/2020). 2) You will take azithromycin, one pill starting tomorrow (08/22). After that, that antibiotic will be done. 3) You will go home on prednisone oral tablets, 6 pills (60 milligrams) every day. You should start this tomorrow. You will begin a slow taper. You will decrease your dose by 10 milligrams (one pill) every 2 days. Once your prednisone prescription is gone, you should resume your home 5 milligram dosing daily. 4) We provided you with a prescription for a rolling walker with a seat. You can get this prescription filled at any local medical equipment store. These prescriptions were sent to the [facility] on [facility]. Please follow up with your Oncologist, your Glass Processing Worker, and your Primary Care doctor over the next 7-10 days. Please call your primary care physician to order an INR for Wednesday (08/23/20), to check to make sure you are on the right track with regard to warfarin dosing. If you have worsening shortness of breath, chest pain, palpitations, fevers over 100.4, please seek urgent medical evaluation. Pending Studies at Discharge: No Stand-Alone Forms: My Conjectur, Smoking Cessation Medications and DC Order Prescriptions: New prednisone 10 mg tablet See Rx Instructions .ROUTE .COMPLEX Qty: 42 RF: 0 azithromycin 250 mg tablet 250 mg PO DAILY 1 Days Qty: 1 RF: 0 cefdinir 300 mg capsule 300 mg PO BID 6 Days Qty: 12 RF: 0 Continued oxycodone 10 mg tablet 10 mg PO Q6H PRN (Reason: Pain) RF: 0 multivitamin Tablet 1 tab PO DAILY RF: 0 furosemide [Lasix] 20 mg tablet 40 mg PO QAM RF: 0 ibuprofen 200 mg capsule 400 mg PO Q8H PRN (Reason: Pain) RF: 0 fentanyl 25 mcg/hr patch 72 hour 1 patch transdermal [id number] RF: 0 Symbicort 160-4.5 mcg/actuation HFA aerosol inhaler 2 puff inhalation BID Qty: 10.2 RF: 5 guaifenesin [Mucinex] 600 mg Tablet Extended Release 12hr 600 mg PO BID RF: 0 tamsulosin [Flomax] 0.4 mg capsule 0.4 mg PO HS Qty: 30 RF: 0 levothyroxine 25 mcg Tablet 25 mcg PO QAM RF: 0 lisinopril 20 mg tablet 20 mg PO BID RF: 0 prednisone 5 mg tablet 5 mg PO QAM RF: 0 ondansetron HCl 8 mg tablet 8 mg PO Q8H PRN (Reason: Nausea) RF: 0 warfarin [Jantoven] 5 mg tablet See Rx Instructions .ROUTE .COMPLEX RF: 0 duloxetine 20 mg capsule,delayed release(DR/EC) 20 mg PO DAILY RF: 0 ipratropium-albuterol 0.5 mg-3 mg(2.5 mg base)/3 mL solution for nebulization 3 ml inhalation Q4H PRN (Reason: Shortness Of Breath Or Wheezing) RF: 0 albuterol sulfate [Ventolin HFA] 90 mcg/actuation HFA aerosol inhaler 2 puff inhalation Q4H PRN (Reason: Shortness Of Breath Or Wheezing) RF: 0 prochlorperazine maleate 10 mg tablet 10 mg PO Q6H PRN (Reason: Nausea) RF: 0 folic acid 1 mg tablet 1 mg PO DAILY RF: 0 Discontinued doxycycline hyclate 100 mg capsule 100 mg PO BID 7 Days Qty: 14 RF: 0 prednisone 20 mg tablet 60 mg PO DAILY 5 Days Qty: 15 RF: 0 Discharge Orders: Discharge Order (Routine); Ordered 08/21/20 Ordered By: Emily Zuniga Admission Data Admit Date/Time: 08/17/20 15:59 Attending Provider: Sanket Bethea Admit Provider: Louie Jack Primary Care Provider: Shazia Marquez Other Providers: Yvonne Khan Other Interventions: Discharge Summary Assessment (RN) Last Done: 08/21/20 14:27 Supervising Physician Co-Signing Physician Notes I personally examined the patient and verified all saavedra points of history and exam, discussed case, and agree with decision making with Filomena Fuentes MS4 feeling better still - wants to go home. comfortable with him going home as well. dsicussed finishing abx and tapering steroids vitals noted nad heent nc at mmm lungs overall clear faint rales base less than yesterday no other r/r/w good effort no accessory muscles no focal neuro deficits Chronic respiratory failure with hypoxia, acute on chronic respiratory failure - related to CAP w COPD exacerbation - -doing better w increased pulmonary toilet. safe/stable for home, finish course of abx, taper steroids. outpt f/u otherwise as above
[2020-08-21] MEDS: AZITHROMYCIN 250 MG in DEXTROSE 5% 250 ML IV SCH (13:01)
[2020-08-21] MEDS ORDERED: WARFARIN SOD 5 MG TAB PO SCH (16:00)
--- NOTE | 2020-08-21 16:14 | Billing Data ---
Date of Service August 21, 2020 Coding Level of Care Code D/C Day Management <30 mins
[2020-08-24] MEDS ORDERED: INFLUENZA VACCINE HIGH DOSE 65+ 0.7 ML SYR IM ONE (09:00)
[2020-08-24] MEDS ORDERED: INFLUENZA ADMINISTRATION CHARGE ONE (09:00)
== END 2020-08-21 15:15 | disposition home or self-care (01) | DRG 193 ==
LOC: ED 10:23 → 2N 15:59 → SUATTDRO 15:59 → 2N 17:33